=== PATIENT | female | born 1950 | race American Indian/Alaskan Native ===

== ENCOUNTER 2020-04-28 03:37 | Inpatient (IN) | payer MEDICARE ==
[2020-04-28] MEDS ORDERED: FUROSEMIDE 40 MG/4 ML INJ IV ONE (03:59)
[2020-04-28] MEDS ORDERED: PROMETHAZINE 25 MG TAB PO ONE (04:00)
[2020-04-28] MEDS ORDERED: NITROGLYCERIN 2% OINT 1 GM TP ONE (04:00)
--- NOTE | 2020-04-28 04:04 | Emergency Department Report ---
ED Shortness of Breath HPI - General Chief Complaint: Dyspnea/Respdistress Stated Complaint: ANSELMO Time Seen by Provider: 04/28/20 03:49 Source: EMS Mode of arrival: Stretcher Limitations: No Limitations - History of Present Illness Initial Comments: 70-year-old female the past medical history of CHF, defibrillator placement and breast cancer currently cancer free presents to the hospital with complaint shortness of breath for couple of days that acutely worsened this morning. EMS reports that patient was in respiratory distress satting in the low 80s on room air. She was treated with aspirin 324 mg, nitroglycerin sublingual x1, and CPAP in route with improvement of O2 sat to 92% with treatment. Patient apparently had a pink frothy sputum with intermittent coughing. She denies fevers loss of sense of taste or smell or having a recent cold weight test. She also denies chest pain, calf tenderness, leg edema, history of DVT/PE, or current an ticoagulant use. She is compliant with her medications including Lasix. 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 She typically goes to [facility] and does not have a chart and medical record for review Patient placed on BiPAP immediate upon arrival and looks comfortable satting 100% on initial BiPAP settings - Related Data Allergies Allergy/AdvReac Type Severity Reaction Status Date / Time ondansetron [From Zofran] Allergy Rash Verified 04/28/20 04:09 ED Review of Systems ROS: Stated complaint: ANSELMO Other details as noted in HPI Comment: All other systems reviewed and negative ED Physical Exam - General Limitations: No Limitations - Other Other exam information: Currently on BiPAP during examination General: No acute distress Head: Atraumatic Eyes: normal appearance ENT: Moist mucous membranes Neck: Normal appearance, no midline tenderness Chest: Bilateral crackles CV: Regular rate and rhythm Abdomen: Soft, normal bowel sounds, nontender, nondistended, no rebound or guarding Back: Normal inspection Extremity: Normal inspection, full range of motion, no calf tenderness or leg edema Neuro: Alert O x 3, no facial asymmetry, speech clear, no gross motor sensory deficit Psych: Appropriate behavior Skin: No rash ED Course Vital Signs 04/28/20 04/28/20 04/28/20 03:53 04:04 04:18 Temperature 97.6 F Pulse Rate 88 84 Respiratory 18 29 H 20 Rate Blood Pressure 159/96 Blood Pressure 170/107 [Left] O2 Sat by Pulse 99 98 98 Oximetry 04/28/20 04:47 Temperature Pulse Rate 87 Respiratory Rate Blood Pressure 159/96 Blood Pressure [Left] O2 Sat by Pulse Oximetry ED Medical Decision Making - Lab Data Result diagrams: 04/28/20 04:09 04/28/20 04:09 Lab Results 04/28/20 04/28/20 04/28/20 Range/Units 04:09 04:09 04:09 WBC 10.4 (4.5-11.0) K/mm3 RBC 4.59 (3.65-5.03) M/mm3 Hgb 13.1 (10.1-14.3) gm/dl Hct 39.4 (30.3-42.9) % MCV 86 (79-97) fl MCH 29 (28-32) pg MCHC 33 (30-34) % RDW 15.3 H (13.2-15.2) % Plt Count 198 (140-440) K/mm3 Lymph % (Auto) 13.2 L (13.4-35.0) % [place] % (Auto) 7.2 (0.0-7.3) % Eos % (Auto) 1.4 (0.0-4.3) % Baso % (Auto) 0.6 (0.0-1.8) % Lymph # (Auto) 1.4 (1.2-5.4) K/mm3 [place] # (Auto) 0.7 (0.0-0.8) K/mm3 Eos # (Auto) 0.1 (0.0-0.4) K/mm3 Baso # (Auto) 0.1 (0.0-0.1) K/mm3 Seg Neutrophils % 77.6 H (40.0-70.0) % Seg Neutrophils # 8.1 H (1.8-7.7) K/mm3 PT 13.7 (12.2-14.9) Sec. INR 1.03 (0.87-1.13) APTT 24.6 (24.2-36.6) Sec. Sodium 142 (137-145) mmol/L Potassium 3.5 L (3.6-5.0) mmol/L Chloride 101.3 (98-107) mmol/L Carbon Dioxide 25 (22-30) mmol/L Anion Gap 19 mmol/L BUN 19 H (7-17) mg/dL Creatinine 1.2 (0.6-1.2) mg/dL Estimated GFR 54 ml/min BUN/Creatinine Ratio 16 % Glucose 146 H (65-100) mg/dL Calcium 9.1 (8.4-10.2) mg/dL Total Bilirubin 0.40 (0.1-1.2) mg/dL AST 32 (5-40) units/L ALT 43 (7-56) units/L Alkaline Phosphatase 125 (35-129) units/L Troponin T < 0.010 (0.00-0.029) ng/mL NT-Pro-B Natriuret Pep 2575 H (0-900) pg/mL Total Protein 6.9 (6.3-8.2) g/dL Albumin 4.0 (3.9-5) g/dL Albumin/Globulin Ratio 1.4 % - EKG Data -: EKG Interpreted by Me (No STEMI anteroseptal Q waves) EKG shows normal: sinus rhythm, intervals (QTC 537), ST-T waves Rate: normal - Radiology Data Radiology results: report reviewed CHEST 1 VIEW INDICATION: Dyspnea COMPARISON: 05/16/2012 FINDINGS: Support devices: Bipolar pacemaker on the right Heart: Normal Lungs/Pleura: There is increased parenchymal density in the right mid and lower lung, worrisome for developing pneumonia. Left lung is clear of acute disease. No significant pleural fluid. IMPRESSION: 1. Right lower lung disease, worrisome for developing pneumonia. Suggest follow- up. - Medical Decision Making 70-year-old female presents to the hospital with shortness of breath for several days acutely worsened this morning. Suspected to have CHF as per EMS and was treated with oxygen, CPAP support, nitroglycerin, and aspirin. BiPAP, Lasix, Nitropaste initiated upon patient's arrival. X-ray more suggestive of pneumonia. Patient then placed in respiratory isolation with COVID order set and blood cultures pending. Labs unremarkable with the exception of elevated BNP and mild hypokalemia prior to IV Lasix. P.o. potassium provided. Patient also provided p.o. Phenergan for nausea case discussed with hospitalistw Dr Bergman. Patient be admitted to IM for treatment. Dexamethasone IV provided for hypoxia Critical Care Time: Yes Critical care time in (mins) excluding proc time.: 35 Critical care attestation.: If time is entered above; I have spent that time in minutes in the direct care of this critically ill patient, excluding procedure time. ED Disposition Clinical Impression: Dyspnea, Pneumonia, Hypoxia, History of CHF (congestive heart failure), History of breast cancer Disposition: OP ADMIT IP TO THIS HOSP Is pt being admited?: Yes Condition: Stable Time of Disposition: 05:51 (Dr Bergman/hospitalist)
--- NOTE | 2020-04-28 04:31 | XRay Report ---
CHEST 1 VIEW INDICATION: Dyspnea COMPARISON: 05/16/2012 FINDINGS: Support devices: Bipolar pacemaker on the right Heart: Normal Lungs/Pleura: There is increased parenchymal density in the right mid and lower lung, worrisome for d eveloping pneumonia. Left lung is clear of acute disease. No significant pleural fluid. IMPRESSION: 1. Right lower lung disease, worrisome for developing pneumonia. Suggest follow-up. Signer Name: Javier Shetty MD Signed: 04/28/2020 4:26 AM Workstation Name: [id number]
[2020-04-28 04:46] LABS: Basophils # (Auto) 0.1 K/mm3 (0.0-0.1); Basophils % (Auto) 0.6 % (0.0-1.8); Eosinophils # (Auto) 0.1 K/mm3 (0.0-0.4); Eosinophils % (Auto) 1.4 % (0.0-4.3); Hematocrit 39.4 % (30.3-42.9); Hemoglobin 13.1 gm/dl (10.1-14.3); Lymphocytes # (Auto) 1.4 K/mm3 (1.2-5.4); Lymphocytes % (Auto) 13.2 % (13.4-35.0); Mean Corpuscular HGB Conc 33 % (30-34); Mean Corpuscular Volume 86 fl (79-97); Monocytes # (Auto) 0.7 K/mm3 (0.0-0.8); Monocytes % (Auto) 7.2 % (0.0-7.3); Platelet Count 198 K/mm3 (140-440); Red Blood Count 4.59 M/mm3 (3.65-5.03); Red Cell Distribution Width 15.3 % (13.2-15.2)
[2020-04-28 04:53] LABS: INR 1.03 (0.87-1.13)
[2020-04-28 04:54] LABS: Partial Thromboplastin Time 24.6 Sec. (24.2-36.6)
[2020-04-28 05:03] LABS: Alanine Aminotransferase 43 units/L (7-56); BUN/Creatinine Ratio 16; Blood Urea Nitrogen 19 mg/dL (7-17); Calcium 9.1 mg/dL (8.4-10.2); Hemolysis Index 7
[2020-04-28] MEDS ORDERED: POTASSIUM CHLORIDE ER 20 MEQ TAB PO ONE ×2 (05:48→12:15)
[2020-04-28] MEDS ORDERED: dexAMETHasone 4 MG/ML VIAL IV ONE (06:27)
[2020-04-28 06:37] LABS: C-Reactive Protein 0.2 mg/dL (0.00-1.30)
[2020-04-28] MEDS ORDERED: cefTRIAXone/NS 2 GM/100 ML 2 GM/100 ML BAG IV ONE (07:34)
[2020-04-28] MEDS: cefTRIAXone/NS 2 GM/100 ML 2 GM/100 ML BAG IV SCH (07:49)
[2020-04-28] MEDS ORDERED: AZITHROMYCIN 500 MG in SODIUM CHLORIDE 0.9% 250ML 250 ML IV SCH (08:00)
--- NOTE | 2020-04-28 10:54 | Consultation ---
History of Present Illness Consult date: 04/28/20 Consult reason: congestive heart failure History of present illness: This is a 70-year old woman with multiple medical problems. She has a cardiac history of nonischemic cardiomyopathy and has a [employer] cardiac defibrillator insitu. Her latest echocardiogram showed persistent dilated cardiomyopathy with an ejection fraction at 25-30%. Normal functioning device on her most recent device interrogation. She has a history of paroxysmal atrial fibrillation, no longer on oral anticoagulation therapy. Patient also is intolerant to statin therapy. Patient was brought in with shortness of breath, coughs and hypoxia. It's reported an O2 saturation in the 80s on presentation to the ED. Chest x-ray suggests developing right pneumonia. A cardiac consultation has been requested for CHF evaluation. Patient reports progressive shortness of breath and coughs for several weeks. Due to COVID patient reports only taking a half tablet of her prescribed medications and running out of others as she did not want to go to the pharmacy. She denies chest pain. Denies palpitations and there is no lower extremity edema. ECG is sinus rhythm with nonspecific Twave abnormalities. Medications and Allergies Allergies Allergy/AdvReac Type Severity Reaction Status Date / Time ondansetron [From Zofran] Allergy Rash Verified 04/28/20 04:09 Home Medications Medication Instructions Recorded Confirmed Last Taken Type Clonidine HCl [Catapres] 0.3 mg PO QHS 04/28/20 04/28/20 04/25/20 History Digoxin [Lanoxin] 0.125 mg PO DAILY 04/28/20 04/28/20 04/25/20 History Furosemide [Lasix TAB] 40 mg PO QDAY 04/28/20 04/28/20 04/25/20 History carvediloL [Coreg] 25 mg PO BID 04/28/20 04/28/20 04/25/20 History Active Meds: Active Medications Ceftriaxone Sodium (Rocephin/Ns 2 Gm/100 Ml) 2 gm in 100 mls @ 200 mls/hr IV Q24H SHARON; Protocol Last Admin: 04/28/20 07:49 Dose: 200 mls/hr Documented by: Azithromycin 500 mg/ Sodium (Chloride) 250 mls @ 250 mls/hr IV Q24HR SHARON; Protocol Last Admin: 04/28/20 08:41 Dose: 250 mls/hr Documented by: Physical Examination Vital Signs Temp Pulse Resp BP Pulse Ox 97.6 F 88 18 170/107 99 04/28/20 03:53 04/28/20 03:53 04/28/20 03:53 04/28/20 03:53 04/28/20 03:53 General appearance: no acute distress HEENT: Positive: PERRL Neck: Positive: trachea midline Cardiac: Positive: Reg Rate and Rhythm Extremities: Absent: edema Results 04/28/20 04:09 04/28/20 06:01 Cardiac Enzymes 04/28/20 04/28/20 Range/Units 04:09 06:01 AST 32 (5-40) units/L Lactate Dehydrogenase 441 H (91-180) units/L Coagulation 04/28/20 Range/Units 04:09 PT 13.7 (12.2-14.9) Sec. INR 1.03 (0.87-1.13) APTT 24.6 (24.2-36.6) Sec. CBC 04/28/20 Range/Units 04:09 WBC 10.4 (4.5-11.0) K/mm3 RBC 4.59 (3.65-5.03) M/mm3 Hgb 13.1 (10.1-14.3) gm/dl Hct 39.4 (30.3-42.9) % Plt Count 198 (140-440) K/mm3 Lymph # (Auto) 1.4 (1.2-5.4) K/mm3 [place] # (Auto) 0.7 (0.0-0.8) K/mm3 Eos # (Auto) 0.1 (0.0-0.4) K/mm3 Baso # (Auto) 0.1 (0.0-0.1) K/mm3 Comprehensive Metabolic Panel 04/28/20 04/28/20 Range/Units 04:09 06:01 Sodium 142 (137-145) mmol/L Potassium 3.5 L (3.6-5.0) mmol/L Chloride 101.3 (98-107) mmol/L Carbon Dioxide 25 (22-30) mmol/L BUN 19 H (7-17) mg/dL Creatinine 1.2 (0.6-1.2) mg/dL Glucose 146 H 116 H (65-100) mg/dL Calcium 9.1 (8.4-10.2) mg/dL AST 32 (5-40) units/L ALT 43 (7-56) units/L Alkaline Phosphatase 125 (35-129) units/L Total Protein 6.9 (6.3-8.2) g/dL Albumin 4.0 (3.9-5) g/dL Assessment and Plan Pneumonia Acute systolic heart failure Hx of Nonischemic CMP LVEF 25-30% by echo 02/2019 normal coronaries by [facility] in 2003 Hx of paroxysmal Afib no longer on oral anticoagulation Presence of AICD ([employer]) normal device function by interrogation 01/2020 Hx of Breast Cancer Recommendations: Sodium and fluid restrictions. Advised compliance with medications. Resume medical therapy for systolic heart failure and paroxysmal atrial fibrillation.
--- NOTE | 2020-04-28 11:56 | History and Physical Report ---
History of Present Illness Date of examination: 04/28/20 Date of admission: 04/28/20 09:55 Chief complaint: Shortness of breath History of present illness: 70-year-old female with past medical history significant for CHF, hypertension, presented to the emergency department with complaints of shortness of breath of one-week duration. Patient stated she has associated dry cough cough, orthopnea and PND of 1 week duration. Patient denied fever, chills, leg swelling. Patient states she has been compliant with her medications and no change in her diet. Patient has been followed with [facility] but she said she did not see them for over a year. In the emergency department patient was hypoxic in the 80s, she was placed on BiPAP, Lasix was given, antibiotics were started and patient admitted for further care. We will going to check COVID test. Patient has elevated BNP and will check CTA. REVIEW OF SYSTEMS: GENERAL: no weight change, no fatigue, no fever HEAD: no head ache EYES: no blurry vision, no acute visual loss EARS: no hearing loss, no discharge, no earache NOSE: no stuffiness, no sneezing, no discharge MOUTH, THROAT AND NECK: no bleeding gums, no sore throat, no swollen neck CARDIAC: As stated in the HPI RESPIRATORY: As stated in the HPI GI: no decreased appetite, no nausea, no vomiting, no dysphagia, no diarrhea, no constipation, no abdominal pain URINARY: No urgency, hematuria, dysuria or frequency. MUSCULOSKELETAL: no muscle weakness, no pain, no joint stiffness NEUROLOGIC: no loss of sensation/numbness, no tingling, no tremors, no weakness/paralysis HEMATOLOGIC: no anemia, no easy bruising SKIN: no rashes ENDOCRINE: no heat/cold intolerance, no polyuria, no polydipsia, no thyroid problems, no diabetes PSYCHIATRIC: no anxiety, no depression, no suicidal ideations Past History Past Medical History: heart failure, hypertension Past Surgical History: mastectomy, Other (Partial thyroidectomy) Social history: full code. denies: smoking, alcohol abuse, prescription drug abuse, IV drug use Family history: no significant family history Medications and Allergies Allergies Allergy/AdvReac Type Severity Reaction Status Date / Time ondansetron [From Zofran] Allergy Rash Verified 04/28/20 04:09 Home Medications Medication Instructions Recorded Confirmed Last Taken Type Clonidine HCl [Catapres] 0.3 mg PO QHS 04/28/20 04/28/20 04/25/20 History Digoxin [Lanoxin] 0.125 mg PO DAILY 04/28/20 04/28/20 04/25/20 History Furosemide [Lasix TAB] 40 mg PO QDAY 04/28/20 04/28/20 04/25/20 History carvediloL [Coreg] 25 mg PO BID 04/28/20 04/28/20 04/25/20 History Active Meds: Active Medications Aspirin (Aspirin) 325 mg PO QDAY SHARON Carvedilol (Coreg) 25 mg PO BID SHARON Clonidine HCl (Catapres) 0.3 mg PO QHS [facility] Stop: 04/28/20 12:01 Clonidine HCl (Catapres) 0.3 mg PO QHS SHARON Digoxin (Lanoxin) 0.125 mg PO DAILY@1700 SHARON Furosemide (Lasix) 40 mg PO QDAY [facility] Ceftriaxone Sodium (Rocephin/Ns 2 Gm/100 Ml) 2 gm in 100 mls @ 200 mls/hr IV Q24H SHARON; Protocol Last Admin: 04/28/20 07:49 Dose: 200 mls/hr Documented by: Azithromycin 500 mg/ Sodium (Chloride) 250 mls @ 250 mls/hr IV Q24HR SHARON; Protocol Last Admin: 04/28/20 08:41 Dose: 250 mls/hr Documented by: Lisinopril (Zestril) 2.5 mg PO QDAY SHARON Spironolactone (Aldactone) 25 mg PO QDAY [facility] Exam - Physical Exam Narrative exam: Not in cardiopulmonary distress. The patient appeared well nourished and normally developed. Vital signs as documented. Head exam is unremarkable. No scleral icterus . Neck is without jugular venous distension, thyromegaly, or carotid bruits. Lungs are clear to auscultation. Cardiac exam reveals regular rate and Rhythm. Abdominal exam reveals normal bowel sounds, nontender, no organomegaly. Extremities are nonedematous and both femoral and pedal pulses are normal. 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 No focal weakness. - Constitutional Vitals: Temp Pulse Resp BP Pulse Ox 97.6 F 96 H 26 H 157/99 99 04/28/20 03:53 04/28/20 09:35 04/28/20 09:35 04/28/20 09:06 04/28/20 09:35 HEART Score - HEART Score Troponin: Troponin T < 0.010 ng/mL (0.00-0.029) 04/28/20 04:09 Results - Labs CBC & Chem 7: 04/28/20 04:09 04/28/20 06:01 Labs: Laboratory Last Values WBC 10.4 K/mm3 (4.5-11.0) 04/28/20 04:09 RBC 4.59 M/mm3 (3.65-5.03) 04/28/20 04:09 Hgb 13.1 gm/dl (10.1-14.3) 04/28/20 04:09 Hct 39.4 % (30.3-42.9) 04/28/20 04:09 MCV 86 fl (79-97) 04/28/20 04:09 MCH 29 pg (28-32) 04/28/20 04:09 MCHC 33 % (30-34) 04/28/20 04:09 RDW 15.3 % (13.2-15.2) H 04/28/20 04:09 Plt Count 198 K/mm3 (140-440) 04/28/20 04:09 Lymph % (Auto) 13.2 % (13.4-35.0) L 04/28/20 04:09 [place] % (Auto) 7.2 % (0.0-7.3) 04/28/20 04:09 Eos % (Auto) 1.4 % (0.0-4.3) 04/28/20 04:09 Baso % (Auto) 0.6 % (0.0-1.8) 04/28/20 04:09 Lymph # (Auto) 1.4 K/mm3 (1.2-5.4) 04/28/20 04:09 [place] # (Auto) 0.7 K/mm3 (0.0-0.8) 04/28/20 04:09 Eos # (Auto) 0.1 K/mm3 (0.0-0.4) 04/28/20 04:09 Baso # (Auto) 0.1 K/mm3 (0.0-0.1) 04/28/20 04:09 Seg Neutrophils % 77.6 % (40.0-70.0) H 04/28/20 04:09 Seg Neutrophils # 8.1 K/mm3 (1.8-7.7) H 04/28/20 04:09 PT 13.7 Sec. (12.2-14.9) 04/28/20 04:09 INR 1.03 (0.87-1.13) 04/28/20 04:09 APTT 24.6 Sec. (24.2-36.6) 04/28/20 04:09 D-Dimer 1103.01 ng/mlDDU (0-234) H 04/28/20 06:01 Sodium 142 mmol/L (137-145) 04/28/20 04:09 Potassium 3.5 mmol/L (3.6-5.0) L 04/28/20 04:09 Chloride 101.3 mmol/L (98-107) 04/28/20 04:09 Carbon Dioxide 25 mmol/L (22-30) 04/28/20 04:09 Anion Gap 19 mmol/L 04/28/20 04:09 BUN 19 mg/dL (7-17) H 04/28/20 04:09 Creatinine 1.2 mg/dL (0.6-1.2) 04/28/20 04:09 Estimated GFR 54 ml/min 04/28/20 04:09 BUN/Creatinine Ratio 16 % 04/28/20 04:09 Glucose 116 mg/dL (65-100) H 04/28/20 06:01 Calcium 9.1 mg/dL (8.4-10.2) 04/28/20 04:09 Ferritin 117.3 ng/mL (10.0-200.0) 04/28/20 06:01 Total Bilirubin 0.40 mg/dL (0.1-1.2) 04/28/20 04:09 AST 32 units/L (5-40) 04/28/20 04:09 ALT 43 units/L (7-56) 04/28/20 04:09 Alkaline Phosphatase 125 units/L (35-129) 04/28/20 04:09 Lactate Dehydrogenase 441 units/L (91-180) H 04/28/20 06:01 Troponin T < 0.010 ng/mL (0.00-0.029) 04/28/20 04:09 C-Reactive Protein 0.20 mg/dL (0.00-1.30) 04/28/20 06:01 NT-Pro-B Natriuret Pep 2575 pg/mL (0-900) H 04/28/20 04:09 Total Protein 6.9 g/dL (6.3-8.2) 04/28/20 04:09 Albumin 4.0 g/dL (3.9-5) 04/28/20 04:09 Albumin/Globulin Ratio 1.4 % 04/28/20 04:09 Procalcitonin < 0.05 ng/mL (<0.15) 04/28/20 06:01 Microbiology: Microbiology 04/28/20 05:50 Peripheral/Venous Blood Culture - Preliminary Culture in Progress 04/28/20 06:01 Peripheral/Venous Blood Culture - Preliminary Culture in Progress Cruz/IV: Voiding Method Bedside Commode IV Catheter Type [Right Peripheral IV Antecubital] Assessment and Plan Assessment and plan: Acute hypoxic respiratory failure -Patient was on BiPAP in the emergency department -Currently saturating well on intranasal oxygen -We will continue to monitor Acute on chronic systolic CHF exacerbation -Cardiology was consulted -Recommended to resume her home medication Community-acquired pneumonia -Patient is on IV Rocephin and azithromycin Elevated d-dimer -COVID-19 test -CTA of the chest DVT prophylaxis -On heparin Disposition -Admit to telemetry floor CODE STATUS -Full Management plan was discussed with the patient is in agreement with the plan of care. VTE prophylaxis?: Chemical Plan of care discussed with patient/family: Yes
[2020-04-28] MEDS ORDERED: ACETAMINOPHEN 325 MG TAB PO PRN (12:00)
[2020-04-28] MEDS ORDERED: ONDANSETRON 4 MG/2 ML INJ IV PRN (12:00)
[2020-04-28] MEDS ORDERED: cloNIDine 0.1 MG TAB PO SCH ×2 (12:00)
[2020-04-28] MEDS: ASPIRIN 325 MG TAB PO SCH (12:09)
[2020-04-28] MEDS: SPIRONOLACTONE 25 MG TAB PO SCH (12:09)
[2020-04-28] MEDS: carvediloL 25 MG TAB PO SCH ×2 (12:10→21:20)
[2020-04-28] MEDS: HEPARIN 5,000 UNIT/1 ML VIAL SUB-Q SCH ×2 (13:15→21:23)
--- NOTE | 2020-04-28 16:55 | Cat Scan Report ---
CT angio chest INDICATION / CLINICAL INFORMATION: hypoxia, elevated d-dimer. TECHNIQUE: Axial CT images were obtained after injection of 100 cc of Omnipaque 350 IV contrast using CTA protoc ol. 3 plane MIP / 3D reconstructions were produced. All CT scans at this location are performed using CT dose reduction for ALARA by means of automated exposure control. COMPARISON: None available. FINDINGS: Following the administration of intravenous contrast, no filling defects are seen in the main pulmona ry arteries or their branches. Small bilateral pleural effusions are present. Diffuse mild airspace d isease is seen in the right lung. Mild nodular disease is seen in both lower lobes. A small pericardi al effusion is present. No enlarged mediastinal or hilar lymph nodes are identified. No significant s keletal abnormality is seen other than degenerative change in the spine. IMPRESSION: 1. No evidence of pulmonary embolus 2. Small bilateral pleural effusions with mild diffuse airspace disease on the right 3. Small pericardial effusion 4. Mild nodular disease in both lower lobes Signer Name: Diogenes Tripathi MD FACR Signed: 04/28/2020 4:50 PM Workstation Name: [id number]
[2020-04-28] MEDS ORDERED: DIGOXIN 0.125 MG TAB PO SCH (17:00)
[2020-04-28] MEDS ORDERED: FUROSEMIDE 40 MG/4 ML INJ IV SCH (18:00)
[2020-04-29] MEDS: HEPARIN 5,000 UNIT/1 ML VIAL SUB-Q SCH (06:16)
[2020-04-29] MEDS: cefTRIAXone/NS 2 GM/100 ML 2 GM/100 ML BAG IV SCH (06:17)
--- NOTE | 2020-04-29 09:15 | Progress Note ---
Assessment and Plan Assessment and plan: Acute hypoxic respiratory failure -Patient was on BiPAP in the emergency department -Currently saturating well on intranasal oxygen -We will continue to monitor Acute on chronic systolic CHF exacerbation -Cardiology was consulted -Recommended to resume her home medication Community-acquired pneumonia -Patient is on IV Rocephin and azithromycin Elevated d-dimer -COVID-19 test -CTA of the chest DVT prophylaxis -On heparin Disposition -Continue inpatient care CODE STATUS -Full Management plan was discussed with the patient is in agreement with the plan of care. History Interval history: Patient was seen and evaluated this morning, patient shortness of breath is getting better Hospitalist Physical - Physical exam Narrative exam: Not in cardiopulmonary distress. The patient appeared well nourished and normally developed. Vital signs as documented. Head exam is unremarkable. No scleral icterus . Neck is without jugular venous distension, thyromegaly, or carotid bruits. Lungs are clear to auscultation. Cardiac exam reveals regular rate and Rhythm. Abdominal exam reveals normal bowel sounds, nontender, no organomegaly. Extremities are nonedematous and both femoral and pedal pulses are normal. 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 No focal weakness. - Constitutional Vitals: Temp Pulse Resp BP Pulse Ox 97.8 F 73 15 170/83 91 04/29/20 08:00 04/29/20 08:00 04/29/20 08:00 04/29/20 08:00 04/29/20 08:00 General appearance: Present: no acute distress HEART Score - HEART Score Troponin: Troponin T < 0.010 ng/mL (0.00-0.029) 04/28/20 04:09 Results - Labs CBC & Chem 7: 04/28/20 04:09 04/28/20 06:01 Labs: Laboratory Last Values WBC 10.4 K/mm3 (4.5-11.0) 04/28/20 04:09 RBC 4.59 M/mm3 (3.65-5.03) 04/28/20 04:09 Hgb 13.1 gm/dl (10.1-14.3) 04/28/20 04:09 Hct 39.4 % (30.3-42.9) 04/28/20 04:09 MCV 86 fl (79-97) 04/28/20 04:09 MCH 29 pg (28-32) 04/28/20 04:09 MCHC 33 % (30-34) 04/28/20 04:09 RDW 15.3 % (13.2-15.2) H 04/28/20 04:09 Plt Count 198 K/mm3 (140-440) 04/28/20 04:09 Lymph % (Auto) 13.2 % (13.4-35.0) L 04/28/20 04:09 Banner % (Auto) 7.2 % (0.0-7.3) 04/28/20 04:09 Eos % (Auto) 1.4 % (0.0-4.3) 04/28/20 04:09 Baso % (Auto) 0.6 % (0.0-1.8) 04/28/20 04:09 Lymph # (Auto) 1.4 K/mm3 (1.2-5.4) 04/28/20 04:09 Banner # (Auto) 0.7 K/mm3 (0.0-0.8) 04/28/20 04:09 Eos # (Auto) 0.1 K/mm3 (0.0-0.4) 04/28/20 04:09 Baso # (Auto) 0.1 K/mm3 (0.0-0.1) 04/28/20 04:09 Seg Neutrophils % 77.6 % (40.0-70.0) H 04/28/20 04:09 Seg Neutrophils # 8.1 K/mm3 (1.8-7.7) H 04/28/20 04:09 PT 13.7 Sec. (12.2-14.9) 04/28/20 04:09 INR 1.03 (0.87-1.13) 04/28/20 04:09 APTT 24.6 Sec. (24.2-36.6) 04/28/20 04:09 D-Dimer 1103.01 ng/mlDDU (0-234) H 04/28/20 06:01 Sodium 142 mmol/L (137-145) 04/28/20 04:09 Potassium 3.5 mmol/L (3.6-5.0) L 04/28/20 04:09 Chloride 101.3 mmol/L (98-107) 04/28/20 04:09 Carbon Dioxide 25 mmol/L (22-30) 04/28/20 04:09 Anion Gap 19 mmol/L 04/28/20 04:09 BUN 19 mg/dL (7-17) H 04/28/20 04:09 Creatinine 1.2 mg/dL (0.6-1.2) 04/28/20 04:09 Estimated GFR 54 ml/min 04/28/20 04:09 BUN/Creatinine Ratio 16 % 04/28/20 04:09 Glucose 116 mg/dL (65-100) H 04/28/20 06:01 Calcium 9.1 mg/dL (8.4-10.2) 04/28/20 04:09 Ferritin 117.3 ng/mL (10.0-200.0) 04/28/20 06:01 Total Bilirubin 0.40 mg/dL (0.1-1.2) 04/28/20 04:09 AST 32 units/L (5-40) 04/28/20 04:09 ALT 43 units/L (7-56) 04/28/20 04:09 Alkaline Phosphatase 125 units/L (35-129) 04/28/20 04:09 Lactate Dehydrogenase 441 units/L (91-180) H 04/28/20 06:01 Troponin T < 0.010 ng/mL (0.00-0.029) 04/28/20 04:09 C-Reactive Protein 0.20 mg/dL (0.00-1.30) 04/28/20 06:01 NT-Pro-B Natriuret Pep 2575 pg/mL (0-900) H 04/28/20 04:09 Total Protein 6.9 g/dL (6.3-8.2) 04/28/20 04:09 Albumin 4.0 g/dL (3.9-5) 04/28/20 04:09 Albumin/Globulin Ratio 1.4 % 04/28/20 04:09 Procalcitonin < 0.05 ng/mL (<0.15) 04/28/20 06:01 Digoxin 0.7 ng/mL (0.9-2.0) L 04/28/20 14:05 Coronavirus (PCR) Negative (Negative) 04/28/20 06:42 Microbiology: Microbiology 04/28/20 05:50 Peripheral/Venous Blood Culture - Preliminary NO GROWTH AFTER 24 HOURS 04/28/20 06:01 Peripheral/Venous Blood Culture - Preliminary NO GROWTH AFTER 24 HOURS Cruz/IV: Voiding Method Bedside Commode IV Catheter Type [Right Peripheral IV Antecubital] Active Medications - Current Medications Current Medications: Generic Name Dose Route Start Last Admin Trade Name Freq PRN Reason Stop Dose Admin Acetaminophen 650 mg 04/28/20 12:00 Tylenol PO Q4H PRN Pain MILD(1-3)/Fever >100.5/NAVAS Aspirin 325 mg 04/28/20 12:00 04/28/20 12:09 Aspirin PO 325 mg QDAY SHARON Administration Azithromycin 500 mg 04/29/20 10:00 Zithromax PO 05/02/20 12:00 QDAY SHARON Carvedilol 25 mg 04/28/20 12:00 04/28/20 21:20 Coreg PO 25 mg BID SHARON Administration Clonidine HCl 0.3 mg 04/29/20 22:00 Catapres PO QHS SHARON Digoxin 0.125 mg 04/28/20 17:00 04/28/20 17:16 Lanoxin PO 0.125 mg DAILY@1700 SHARON Administration Furosemide 40 mg 04/29/20 10:00 Lasix PO QDAY SHARON Heparin Sodium (Porcine) 5,000 unit 04/28/20 14:00 04/29/20 06:16 Heparin SUB-Q 5,000 unit Q8HR SHARON Administration Ceftriaxone Sodium 2 gm in 100 mls @ 200 mls/hr 04/28/20 07:00 04/29/20 06:17 Rocephin/Ns 2 Gm/100 Ml IV 05/02/20 07:29 200 mls/hr Q24H SHARON Administration Protocol Lisinopril 2.5 mg 04/29/20 10:00 Zestril PO QDAY SHARON Ondansetron HCl 4 mg 04/28/20 12:00 Zofran IV Q8H PRN Nausea And Vomiting Sodium Chloride 10 ml 04/28/20 22:00 04/28/20 21:25 Sodium Chloride Flush Syringe 10 Ml IV 10 ml BID SHARON Administration Sodium Chloride 10 ml 04/28/20 12:00 Sodium Chloride Flush Syringe 10 Ml IV PRN PRN LINE FLUSH Spironolactone 25 mg 04/28/20 12:00 04/28/20 12:09 Aldactone PO 25 mg QDAY SHARON Administration Nutrition/Malnutrition Assess - Dietary Evaluation Nutrition/Malnutrition Findings: Nutrition Notes Start: 04/28/20 10:19 Freq: Status: Active Protocol: Document 04/28/20 10:19 KIRSTIN (Rec: 04/28/20 10:24 KIRSTIN [email or web address]) Nutrition Notes Need for Assessment 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 Chest Xray revealed possible developing pneu. Cardiology consulted. Burn Absent Trauma Absent Minimum of two criteria No #1 Nutrition Diagnosis Inadequate oral intake Etiology ANSELMO As Evidenced by Signs and Symptoms pt NPO Is patient on ventilator? No Is Patient Ambulatory and/or Out of Bed No [facility] 1507.272 Calculation Used for Recommendations [facility] Additional Notes Pro needs 1-1.2g/k-84g/ day Fluid needs 1500-1900ml/day or per MD Nutrition Intervention Change Diet Order: Advance diet when medically feasible Goal #1 Diet advancement to meet nutrient needs Anticipated Discharge Needs: Low sodium diet Follow-Up By: 04/30/20 Additional Comments F/U: diet advancement
[2020-04-29] MEDS ORDERED: FUROSEMIDE 40 MG TAB PO SCH (10:00)
[2020-04-29] MEDS ORDERED: LISINOPRIL 5 MG TAB PO SCH (10:00)
[2020-04-29] MEDS ORDERED: AZITHROMYCIN 250 MG TAB PO SCH (10:00)
[2020-04-29] MEDS: ASPIRIN 325 MG TAB PO SCH (10:03)
[2020-04-29] MEDS: carvediloL 25 MG TAB PO SCH (10:03)
[2020-04-29] MEDS: SPIRONOLACTONE 25 MG TAB PO SCH (10:04)
--- NOTE | 2020-04-29 11:42 | Discharge Summary ---
Providers - Providers Date of Admission: 04/28/20 09:55 Date of discharge: 04/29/20 Attending physician: ABDULAZIZ HEWITT MD 04/28/20 09:13 Consult to Physician [CONS] Routine Comment: Consulting Provider: SIL DELANEY Physician Instructions: Reason For Exam: CHF, hypoxia Primary care physician: ALLEGRA PEOPLES Hospitalization Reason for admission: Acute hypoxic respiratory failure, hypoxia, acute on chronic systolic CHF Condition: Stable Pertinent studies: CTA chest negative for PE Hospital course: 70-year-old female with past medical history significant for CHF, hypertension, presented to the emergency department with complaints of shortness of breath of one-week duration. Patient stated she has associated dry cough cough, orthopnea and PND of 1 week duration. Patient denied fever, chills, leg swelling. Patient states she has been compliant with her medications and no change in her diet. Patient has been followed with [facility] but she said she did not see them for over a year. In the emergency department patient was hypoxic in the 80s, she was placed on BiPAP, Lasix was given, antibiotics were started and patient admitted for further care. COVID test is negative. Patient has elevated BNP and will. CTA chest was done and negative. Patient was admitted to the floor for the management of acute hypoxic respiratory failure and initially patient was treated with BiPAP and later transitioned to intranasal oxygen. This morning her oxygen saturation was 95% after ambulation without oxygen. Cardiology was consulted for her CHF and recommended to continue her home medication regimens and no further work-up is needed and advised to have follow-up in the office because the patient is noncompliant. Patient has pneumonia and was treated with IV antibiotics while she was inpatient and discharged with p.o. antibiotics to finish as outpatient. Patient was hemodynamically stable at the time of discharge and appropriate medication scripts were given at the time of discharge. Patient's questions and concerns were addressed at the bedside. Disposition: - TO HOME OR SELFCARE Time spent for discharge: 32 minutes - Discharge Diagnoses (1) Dyspnea Status: Acute (2) History of CHF (congestive heart failure) Status: Acute (3) History of breast cancer Status: Acute (4) Hypoxia Status: Acute (5) Pneumonia Status: Acute Core Measure Documentation - Palliative Care Palliative Care/ Comfort Measures: Not Applicable - Core Measures Any of the following diagnoses?: heart failure, none - Heart Failure Discharge Requirements EMMA/ARB for LVSD if EF <40%: Yes Beta itzel at discharge: Yes Exam - Physical Exam Narrative exam: Not in cardiopulmonary distress. The patient appeared well nourished and normally developed. Vital signs as documented. Head exam is unremarkable. No scleral icterus . Neck is without jugular venous distension, thyromegaly, or carotid bruits. Lungs are clear to auscultation. Cardiac exam reveals regular rate and Rhythm. Abdominal exam reveals normal bowel sounds, nontender, no organomegaly. Extremities are nonedematous and both femoral and pedal pulses are normal. 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 No focal weakness. - Constitutional Vitals: Temp Pulse Resp BP Pulse Ox 97.8 F 73 16 173/78 100 04/29/20 08:00 04/29/20 10:31 04/29/20 10:31 04/29/20 10:31 04/29/20 10:31 Plan Activity: no restrictions Weight Bearing Status: Full Weight Bearing Diet: low fat Follow up with: ALLEGRA PEOPLES MD [Primary Care Provider] - 3-5 Days SIL DELANEY MD [Staff Physician] - 14 Days Prescriptions: Clonidine HCl [Catapres] 0.3 mg PO QHS #30 Spironolactone [Aldactone] 25 mg PO QDAY #30 tablet carvediloL [Coreg] 25 mg PO BID #60 cephALEXin [Keflex] 500 mg PO Q8HR #15 cap Digoxin [Lanoxin] 0.125 mg PO DAILY #30 Furosemide [Lasix TAB] 40 mg PO QDAY #30 lisinopriL [Zestril TAB] 2.5 mg PO QDAY #30 tablet Azithromycin [Zithromax TAB] 250 mg PO QDAY #3 tablet
--- NOTE | 2020-04-29 12:10 | Progress Note ---
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 Presence of AICD ([employer]) normal device function by interrogation 01/2020 Hx of Breast Cancer Recommendations: Sodium and fluid restrictions. Continue medical therapy for systolic heart failure and paroxysmal atrial fibrillation. Advised compliance with medical therapy and outpatient follow up. Otherwise, conservative cardiac management. Subjective Date of service: 04/29/20 Interval history: Patient is resting in bed comfortably. Reports she is feeling better. Wants to go home. Objective Vital Signs Temp Pulse Pulse Resp BP Pulse Ox 04/29/20 10:31 73 16 173/78 100 04/29/20 10:21 72 20 173/78 100 04/29/20 10:11 69 18 173/78 99 04/29/20 10:04 173/78 04/29/20 10:03 70 173/78 04/29/20 10:00 70 13 173/78 100 04/29/20 09:51 73 15 165/72 100 04/29/20 09:41 66 15 165/72 99 04/29/20 09:31 71 16 165/72 100 04/29/20 09:21 71 13 165/72 100 04/29/20 09:11 72 15 165/72 100 04/29/20 09:00 68 16 165/72 100 04/29/20 08:51 71 18 170/83 100 04/29/20 08:41 75 13 170/83 100 04/29/20 08:31 70 15 170/83 100 04/29/20 08:21 70 21 170/83 99 04/29/20 08:11 67 19 170/83 100 04/29/20 08:00 97.8 F 73 15 170/83 91 04/29/20 07:51 69 13 159/72 100 04/29/20 07:41 65 16 159/72 100 04/29/20 07:31 64 15 159/72 100 04/29/20 07:21 68 12 159/72 100 04/29/20 07:11 65 15 159/72 100 04/29/20 07:00 63 16 159/72 100 04/29/20 06:51 63 17 153/70 100 04/29/20 06:41 69 21 153/70 100 04/29/20 06:31 64 16 153/70 100 04/29/20 06:21 66 18 153/70 100 04/29/20 06:11 66 11 L 153/70 100 04/29/20 06:00 62 12 153/70 100 04/29/20 05:51 63 17 147/66 100 04/29/20 05:41 73 15 147/66 100 04/29/20 05:31 66 14 147/66 100 04/29/20 05:21 63 15 147/66 100 04/29/20 05:11 63 15 147/66 100 04/29/20 05:01 63 20 147/66 100 04/29/20 04:51 62 15 128/63 99 04/29/20 04:41 64 18 128/63 99 04/29/20 04:31 64 16 128/63 100 04/29/20 04:21 75 13 128/63 99 04/29/20 04:11 64 12 128/63 100 04/29/20 04:00 98.3 F 65 75 17 128/63 99 04/29/20 03:51 58 L 14 132/57 100 04/29/20 03:41 63 14 132/57 100 04/29/20 03:31 58 L 14 132/57 100 04/29/20 03:21 62 16 132/57 100 04/29/20 03:11 60 14 132/57 99 04/29/20 03:00 60 14 132/57 100 04/29/20 02:51 59 L 14 128/61 99 04/29/20 02:41 60 14 128/61 100 04/29/20 02:31 62 14 128/61 100 04/29/20 02:21 64 14 128/61 100 04/29/20 02:11 61 14 128/61 100 04/29/20 02:00 58 L 20 128/61 100 04/29/20 01:51 58 L 13 131/66 100 04/29/20 01:41 60 14 131/66 100 04/29/20 01:31 61 13 131/66 100 04/29/20 01:21 61 14 131/66 100 04/29/20 01:11 64 14 131/66 100 04/29/20 01:00 64 13 131/66 100 04/29/20 00:51 63 13 127/57 99 04/29/20 00:41 61 14 127/57 99 04/29/20 00:31 62 14 127/57 99 04/29/20 00:21 69 14 127/57 100 04/29/20 00:11 68 18 127/57 99 04/29/20 00:00 97.6 F 75 75 13 127/57 99 04/28/20 23:51 119/54 98 04/28/20 23:41 119/54 100 04/28/20 23:31 119/54 99 04/28/20 23:21 66 15 119/54 100 04/28/20 23:11 67 13 119/54 99 04/28/20 23:00 70 14 119/54 99 04/28/20 22:51 67 14 137/67 100 04/28/20 22:41 70 14 137/67 99 04/28/20 22:31 67 14 137/67 100 04/28/20 22:21 137/67 100 04/28/20 22:11 137/67 99 04/28/20 22:00 137/67 99 04/28/20 21:51 139/73 100 04/28/20 21:41 81 24 139/73 99 04/28/20 21:31 72 16 139/73 99 04/28/20 21:21 79 22 120/57 99 04/28/20 21:20 71 139/73 04/28/20 21:11 69 18 120/57 99 04/28/20 21:01 72 22 120/57 99 04/28/20 20:51 70 20 134/67 98 04/28/20 20:41 73 16 134/67 99 04/28/20 20:31 73 22 134/67 98 04/28/20 20:21 72 19 134/67 98 04/28/20 20:17 70 04/28/20 20:11 68 15 134/67 98 04/28/20 20:07 68 15 134/67 98 04/28/20 20:00 97.9 F 70 70 18 130/62 98 04/28/20 19:51 69 17 130/62 99 04/28/20 19:41 71 23 130/62 100 04/28/20 19:31 89 21 130/62 99 04/28/20 19:21 77 21 130/62 100 04/28/20 19:11 73 13 130/62 99 04/28/20 19:00 66 16 130/62 100 04/28/20 18:51 69 18 130/65 99 04/28/20 18:41 74 13 130/65 99 04/28/20 18:31 74 18 130/65 99 04/28/20 18:21 72 17 130/65 98 04/28/20 18:11 72 17 130/65 98 04/28/20 18:00 71 23 130/65 99 04/28/20 17:51 75 21 114/69 98 04/28/20 17:41 90 24 114/69 99 04/28/20 17:31 84 18 114/69 99 04/28/20 17:21 89 23 114/69 98 04/28/20 17:16 89 129/62 04/28/20 17:11 80 20 114/69 98 04/28/20 17:00 78 18 129/62 99 04/28/20 16:50 78 14 100 04/28/20 16:42 81 21 107/68 100 04/28/20 16:00 98.1 F 78 79 17 107/68 99 04/28/20 15:50 75 20 108/60 100 04/28/20 15:40 73 16 108/60 99 04/28/20 15:30 75 17 108/60 100 04/28/20 15:20 77 16 108/60 99 04/28/20 15:10 76 16 108/60 99 04/28/20 15:00 76 17 108/60 99 04/28/20 14:50 78 16 105/60 98 04/28/20 14:40 80 14 105/60 99 04/28/20 14:30 81 16 105/60 98 04/28/20 14:20 81 15 105/60 98 04/28/20 14:10 82 17 105/60 99 04/28/20 14:00 85 19 105/60 98 04/28/20 13:50 82 16 119/64 98 04/28/20 13:40 83 16 119/64 97 04/28/20 13:30 82 17 119/64 98 04/28/20 13:20 85 22 119/64 97 04/28/20 13:10 93 H 15 119/64 98 04/28/20 13:00 89 21 119/64 98 04/28/20 12:50 90 17 167/76 98 04/28/20 12:40 96 H 20 167/76 98 04/28/20 12:30 99 H 24 167/76 99 04/28/20 12:20 101 H 23 167/76 99 04/28/20 12:10 99 H 21 167/76 98 04/28/20 12:09 99 H 167/76 - Physical Examination General: No Apparent Distress HEENT: Positive: PERRL Neck: Positive: trachea midline Cardiac: Positive: Reg Rate and Rhythm Extremities: Absent: edema <ARCENIO HYMAN Last Filed: 04/30/20 21:02> Subjective Interval history: I SAW THIS PT & AGREE WITH THE Dx & Tx PLAN
[2020-04-29 12:35] VITALS: BP 146/65
[2020-04-29] MEDS ORDERED: cloNIDine 0.1 MG TAB PO SCH (22:00)
== END 2020-04-29 12:56 | disposition home or self-care (01) | DRG 871 ==
LOC: ED 03:37 → IMCU 05:56 → OBSVTOIN 09:55
PROVIDERS: ADMIT Internal Medicine Geriatric Medicine; ATTEND Internal Medicine
PROC: 5A09357 Assistance with Respiratory Ventilation, Less than 24 Consecutive Hours, Continuous Positive Airway Pressure (ICD-10-PCS; principal; 2020-04-28)
DX: A41.9 Sepsis, unspecified organism (principal); J96.01 Acute respiratory failure with hypoxia; J18.9 Pneumonia, unspecified organism; I50.23 Acute on chronic systolic (congestive) heart failure; I42.8 Other cardiomyopathies; I11.0 Hypertensive heart disease with heart failure; E87.6 Hypokalemia; Z20.828 Contact with and (suspected) exposure to other viral communicable diseases; Z95.810 Presence of automatic (implantable) cardiac defibrillator; Z79.899 Other long term (current) drug therapy; Z79.82 Long term (current) use of aspirin; Z85.3 Personal history of malignant neoplasm of breast; Z79.01 Long term (current) use of anticoagulants; Z88.8 Allergy status to other drugs, medicaments and biological substances; Z91.19 Patient's noncompliance with other medical treatment and regimen; Z79.891 Long term (current) use of opiate analgesic
CPT/HCPCS: 36415; 71045; 71275; 80053; 80162; 82728; 82947; 83615; 83880; 84145; 84484; 85025; 85379; 85610; 85730; 86140; 87040; 93005; 94760; 96365; 96375; G0378; J0456; J0696; J1100; J1644; J1940; J7050; Q0169; Q9967; U0003-CS

== ENCOUNTER 2020-05-10 21:40 | Observation (INO) | payer MEDICARE ==
--- NOTE | 2020-05-10 22:15 | Emergency Department Report ---
ED Neuro Deficit HPI - General Chief Complaint: Neuro Symptoms/Deficit Stated Complaint: POSS STROKE Time Seen by Provider: 05/10/20 22:00 Source: patient Mode of arrival: Ambulatory Limitations: No Limitations - History of Present Illness Initial Comments: Chief complaint "I had a bit of slurred speech and confusion." HPI: This is a 70-year-old female with history of breast cancer in remission, congestive heart failure and atrial fibrillation who was recently discharged from the hospital after treatment for pneumonia last week. She presents with sudden onset of slurred speech and confusion observed by her . Patient realized that she could not get her train of thought together for a moment. EMS was called to the home. Patient politely declined EMS transport. She was brought by private vehicle. Patient states speech has improved. Her thought process appears to have been slowed. She feels as if it takes some time to get her thoughts together. Patient is not on anticoagulation. Patient does take digoxin. No previous history of TIA or CVA. She takes daily aspirin. PCP Dr. Carranza Hop Weigher Dr. Meade -: Sudden, This evening Location: speech, altered History of same: No Place: home Severity: mild Improves With: time Context: sudden onset Associated Symptoms: confusion Treatments Prior to Arrival: none - Related Data Home Medications: Previous Rx's Medication Instructions Recorded Last Taken Type Azithromycin [Zithromax TAB] 250 mg PO QDAY #3 tablet 04/29/20 Unknown Rx Clonidine HCl [Catapres] 0.3 mg PO QHS #30 04/29/20 Unknown Rx Digoxin [Lanoxin] 0.125 mg PO DAILY #30 04/29/20 Unknown Rx Furosemide [Lasix TAB] 40 mg PO QDAY #30 04/29/20 Unknown Rx Spironolactone [Aldactone] 25 mg PO QDAY #30 tablet 04/29/20 Unknown Rx carvediloL [Coreg] 25 mg PO BID #60 04/29/20 Unknown Rx cephALEXin [Keflex] 500 mg PO Q8HR #15 cap 04/29/20 Unknown Rx lisinopriL [Zestril TAB] 2.5 mg PO QDAY #30 tablet 04/29/20 Unknown Rx Allergies/Adverse Reactions: Allergies Allergy/AdvReac Type Severity Reaction Status Date / Time ondansetron [From Zofran] Allergy Rash Verified 04/28/20 04:09 ED Review of Systems ROS: Stated complaint: POSS STROKE Other details as noted in HPI Comment: All other systems reviewed and negative Constitutional: denies: fever, malaise Respiratory: denies: cough, shortness of breath Cardiovascular: denies: chest pain Gastrointestinal: denies: abdominal pain, nausea, vomiting Neurological: confusion. denies: headache, weakness, numbness, paresthesias, abnormal gait, vertigo ED Past Medical Hx - Past Medical History Previous Medical History?: Yes Hx Hypertension: Yes Hx Congestive Heart Failure: Yes (Defibrilator) - Surgical History Past Surgical History?: Yes Hx Breast Surgery: Yes Additional Surgical History: Partial Thyroid removed, Rhinoplasty - Social History Smoking Status: Never Smoker Substance Use Type: None - Medications Home Medications: Home Medications Medication Instructions Recorded Confirmed Last Taken Type Azithromycin [Zithromax TAB] 250 mg PO QDAY #3 tablet 04/29/20 Unknown Rx Clonidine HCl [Catapres] 0.3 mg PO QHS #30 04/29/20 Unknown Rx Digoxin [Lanoxin] 0.125 mg PO DAILY #30 04/29/20 Unknown Rx Furosemide [Lasix TAB] 40 mg PO QDAY #30 04/29/20 Unknown Rx Spironolactone [Aldactone] 25 mg PO QDAY #30 tablet 04/29/20 Unknown Rx carvediloL [Coreg] 25 mg PO BID #60 04/29/20 Unknown Rx cephALEXin [Keflex] 500 mg PO Q8HR #15 cap 04/29/20 Unknown Rx lisinopriL [Zestril TAB] 2.5 mg PO QDAY #30 tablet 04/29/20 Unknown Rx ED Neuro Physical Exam - General Limitations: No Limitations General appearance: alert, in no apparent distress Suspected Stroke: Yes - Head Head exam: Present: atraumatic, normocephalic - Eye Eye exam: Present: normal appearance - ENT ENT exam: Present: mucous membranes moist - Neck Neck exam: Present: normal inspection, full ROM - Respiratory Respiratory exam: Present: normal lung sounds bilaterally. Absent: respiratory distress, wheezes, rales, rhonchi - Cardiovascular Cardiovascular Exam: Present: normal rhythm, tachycardia, irregular rhythm, normal heart sounds. Absent: systolic murmur, diastolic murmur, rubs, gallop - GI/Abdominal GI/Abdominal exam: Present: soft, normal bowel sounds. Absent: distended, tenderness, guarding, rebound - Extremities Exam Extremities exam: Present: normal inspection - Neurological Exam Neurological exam: Present: alert, oriented X3 - NIHSS Assessment Interval: Baseline 1a. Level of Consciousness: alert/keenly responsive 1b. LOC Questions: answers both correctly 1c. LOC Commands: performs tasks correctly 2. Best Gaze: normal 3. Visual: no visual loss 4. Facial Palsy: normal symmetrical movement 5b. Motor Arm Right: no drift 5a. Motor Arm Left: no drift 6a. Motor Leg Left: no drift 6b. Motor Leg Right: no drift 7. Limb Ataxia: absent 8. Sensory: normal 9. Best Language: no aphasia 10. Dysarthria: normal 11. Extinction/Inattention: no abnormality Total Score: 0 Stroke Severity: No Stroke Symptoms - Psychiatric Psychiatric exam: Present: normal affect, normal mood - Skin Skin exam: Present: warm, dry, intact, normal color. Absent: rash ED Course Vital Signs 05/10/20 05/10/20 21:46 22:19 Temperature 98.0 F Pulse Rate 51 L Respiratory 15 18 Rate Blood Pressure 101/72 O2 Sat by Pulse 96 Oximetry - Lab Data Result diagrams: 05/10/20 22:31 05/10/20 22:31 Lab Results 05/10/20 05/10/20 05/10/20 Range/Units 22:31 22:31 22:31 WBC 13.8 H (4.5-11.0) K/mm3 RBC 5.04 H (3.65-5.03) M/mm3 Hgb 14.2 (10.1-14.3) gm/dl Hct 42.9 (30.3-42.9) % MCV 85 (79-97) fl MCH 28 (28-32) pg MCHC 33 (30-34) % RDW 15.9 H (13.2-15.2) % Plt Count 226 (140-440) K/mm3 Lymph % (Auto) 15.5 (13.4-35.0) % [place] % (Auto) 9.7 H (0.0-7.3) % Eos % (Auto) 0.2 (0.0-4.3) % Baso % (Auto) 0.7 (0.0-1.8) % Lymph # (Auto) 2.1 (1.2-5.4) K/mm3 [place] # (Auto) 1.3 H (0.0-0.8) K/mm3 Eos # (Auto) 0.0 (0.0-0.4) K/mm3 Baso # (Auto) 0.1 (0.0-0.1) K/mm3 Seg Neutrophils % 73.9 H (40.0-70.0) % Seg Neutrophils # 10.2 H (1.8-7.7) K/mm3 Sodium 140 (137-145) mmol/L Potassium 4.1 (3.6-5.0) mmol/L Chloride 100.0 (98-107) mmol/L Carbon Dioxide 26 (22-30) mmol/L Anion Gap 18 mmol/L BUN 15 (7-17) mg/dL Creatinine 1.3 H (0.6-1.2) mg/dL Estimated GFR 49 ml/min BUN/Creatinine Ratio 12 % Glucose 125 H (65-100) mg/dL POC Glucose (70-105) Calcium 9.7 (8.4-10.2) mg/dL Troponin T < 0.010 (0.00-0.029) ng/mL Digoxin (0.9-2.0) ng/mL Plasma/Serum Alcohol < 0.01 (0-0.07) % 05/10/20 05/10/20 Range/Units 22:31 23:07 WBC (4.5-11.0) K/mm3 RBC (3.65-5.03) M/mm3 Hgb (10.1-14.3) gm/dl Hct (30.3-42.9) % MCV (79-97) fl MCH (28-32) pg MCHC (30-34) % RDW (13.2-15.2) % Plt Count (140-440) K/mm3 Lymph % (Auto) (13.4-35.0) % [place] % (Auto) (0.0-7.3) % Eos % (Auto) (0.0-4.3) % Baso % (Auto) (0.0-1.8) % Lymph # (Auto) (1.2-5.4) K/mm3 [place] # (Auto) (0.0-0.8) K/mm3 Eos # (Auto) (0.0-0.4) K/mm3 Baso # (Auto) (0.0-0.1) K/mm3 Seg Neutrophils % (40.0-70.0) % Seg Neutrophils # (1.8-7.7) K/mm3 Sodium (137-145) mmol/L Potassium (3.6-5.0) mmol/L Chloride (98-107) mmol/L Carbon Dioxide (22-30) mmol/L Anion Gap mmol/L BUN (7-17) mg/dL Creatinine (0.6-1.2) mg/dL Estimated GFR ml/min BUN/Creatinine Ratio % Glucose (65-100) mg/dL POC Glucose 98 (70-105) Calcium (8.4-10.2) mg/dL Troponin T (0.00-0.029) ng/mL Digoxin 1.0 (0.9-2.0) ng/mL Plasma/Serum Alcohol (0-0.07) % 05/10/20 22:20 EKG obtained 6 EKG interpreted by me Atrial fibrillation versus atrial flutter ventricular rate 95 bpm normal axis prolonged QTC no ST elevation - Radiology Data Radiology results: report reviewed CT head: No acute intracranial abnormality, Mucosal thickening in the sphenoid sinus Chest radiograph: Patchy airspace opacity right lung base - Medical Decision Making This is a 70-year-old female who presents with TIA symptoms including slurred speech and confusion. Patient has a history of atrial fibrillation. I have spoken with drapery and upholstery measurer on-call Dr. Chen who recommended holding anticoagulation until cardiology consultation tomorrow. I have reviewed labs which remarkable for persistent leukocytosis. Chemistry coagulation profile otherwise within normal notes. Patient is admitted to the hospitalist service. Critical care attestation.: If time is entered above; I have spent that time in minutes in the direct care of this critically ill patient, excluding procedure time. ED Disposition Clinical Impression: TIA (transient ischemic attack), Community acquired pneumonia, Atrial fibrillation, History of CHF (congestive heart failure) Disposition: OP ADMIT IP TO THIS HOSP Is pt being admited?: Yes Does the pt Need Aspirin: No Condition: Stable
--- NOTE | 2020-05-10 22:50 | Cat Scan Report ---
CT HEAD WITHOUT CONTRAST INDICATION: Stroke symptoms TECHNIQUE: Axial slices were obtained through the head. Coronal and sagittal reformatted images were obtained. COMPARISON: None available. FINDINGS: There is no intracranial hemorrhage or extra-axial fluid collection. Ventricles, basilar cisterns, an d sulci appear within normal limits for age. There is no mass lesion or midline shift. No acute aaron torial infarct is identified. Bone windows demonstrate no acute osseous abnormality. There is mucosal thickening in the right aspec t of the sphenoid sinus. TECHNIQUE: All CT scans at this facility use dose modulation, iterative reconstruction, automated ex posure control, weight based dosing, when appropriate, to reduce radiation dose to as low as reasonab ly achievable. IMPRESSION: 1. No acute intracranial abnormality. 2. There is mucosal thickening in the sphenoid sinus. Signer Name: Everardo Lange MD Signed: 05/10/2020 10:46 PM Workstation Name: [id number]
[2020-05-10 22:51] LABS: Basophils # (Auto) 0.1 K/mm3 (0.0-0.1); Basophils % (Auto) 0.7 % (0.0-1.8); Eosinophils % (Auto) 0.2 % (0.0-4.3); Hematocrit 42.9 % (30.3-42.9); Hemoglobin 14.2 gm/dl (10.1-14.3); Lymphocytes # (Auto) 2.1 K/mm3 (1.2-5.4); Lymphocytes % (Auto) 15.5 % (13.4-35.0); Mean Corpuscular HGB Conc 33 % (30-34); Mean Corpuscular Volume 85 fl (79-97); Monocytes # (Auto) 1.3 K/mm3 (0.0-0.8); Monocytes % (Auto) 9.7 % (0.0-7.3); Platelet Count 226 K/mm3 (140-440); Red Blood Count 5.04 M/mm3 (3.65-5.03); Red Cell Distribution Width 15.9 % (13.2-15.2)
[2020-05-10 23:06] LABS: BUN/Creatinine Ratio 12; Blood Urea Nitrogen 15 mg/dL (7-17); Calcium 9.7 mg/dL (8.4-10.2); Hemolysis Index 7
--- NOTE | 2020-05-10 23:21 | XRay Report ---
CHEST 1 VIEW INDICATION / CLINICAL INFORMATION: suspected TIA hx of pneumonia. COMPARISON: 04/28/2020 FINDINGS: SUPPORT DEVICES: AICD appears unchanged HEART / MEDIASTINUM: No significant abnormality. LUNGS / PLEURA: There is some persistent patchy airspace opacity in the right lung base.. No pneumot horax. ADDITIONAL FINDINGS: No significant additional findings. IMPRESSION: 1. There is patchy airspace opacity in the right lung base. The remainder the lungs are clear. Signer Name: Everardo Lange MD Signed: 05/10/2020 11:17 PM Workstation Name: [id number]
--- NOTE | 2020-05-10 23:36 | History and Physical Report ---
History of Present Illness Date of examination: 05/10/20 Date of admission: 05/10/2020 Chief complaint: Slurred Speech Altered mental status History of present illness: 70-year-old female with known history of breast cancer in remission, congestive heart failure, hypertension and atrial fibrillation was just recently discharged from this hospital about a week ago for pneumonia presenting to the emergency room today with a sudden onset of slurred speech and confusion which was observed by family today. EMS was subsequently called however patient decided to come in a private vehicle. She indicates she was unable to get around thoughts and words together. She denies any headache and denies any dizziness. She denies any fever or chills, no chest pain or shortness of breath, no nausea or vomiting, no abdominal pain, no hematuria or dysuria. Symptoms lasted for less than 30 minutes. Upon arrival in the emergency room symptoms was said to have cleared up. Patient states she has been following up with Dr. Meade in the past for cardiac history however she has been lost to follow-up lately due to the Covid 19 pandemic. Work-up in the emergency room today CT scan did not reveal any significant abnormality, labs were also unremarkable. EKG shows atrial fibrillation. She became slightly hypotensive in the emergency room and was given a bolus of 250 cc normal saline with improvement in her blood pressure. Patient will be admitted for work-up of TIA. Past History Past Medical History: atrial fib, heart failure, hypertension, other (Breast Ca, s/p mastectomy, chemo and radiation therapy) Past Surgical History: Other (Rhinoplasty,left mastectomy,Partial Throidectomy,Defibrillator placement.) Social history: no significant social history Family history: no significant family history Medications and Allergies Allergies Allergy/AdvReac Type Severity Reaction Status Date / Time ondansetron [From Zofran] Allergy Rash Verified 04/28/20 04:09 Home Medications Medication Instructions Recorded Confirmed Last Taken Type Clonidine HCl [Catapres] 0.3 mg PO QHS #30 04/29/20 05/11/20 05/09/20 21:00 Rx Digoxin [Lanoxin] 0.125 mg PO DAILY #30 04/29/20 05/11/20 05/09/20 21:00 Rx Furosemide [Lasix TAB] 40 mg PO QDAY #30 04/29/20 05/11/20 05/09/20 21:00 Rx Spironolactone [Aldactone] 25 mg PO QDAY #30 tablet 04/29/20 05/11/20 05/10/20 09:00 Rx carvediloL [Coreg] 25 mg PO BID #60 04/29/20 05/11/20 05/10/20 09:00 Rx Aspirin EC [Ecotrin] 325 mg PO DAILY 05/11/20 05/11/20 05/10/20 09:00 History Promethazine [Phenergan] 25 mg PO Q6HR PRN 05/11/20 05/11/20 Unknown History Valsartan 320 mg PO DAILY 05/11/20 05/11/20 05/10/20 09:00 History Review of Systems Constitutional: no fever, no chills Ears, nose, mouth and throat: no nasal congestion, no sore throat Cardiovascular: palpitations, no chest pain, no syncope Respiratory: no cough, no shortness of breath Gastrointestinal: no abdominal pain, no nausea, no vomiting, no diarrhea Genitourinary Female: no pelvic pain, no flank pain, no hematuria Musculoskeletal: no neck pain, no low back pain Integumentary: no rash, no pruritis Neurological: change in speech, confusion, no syncope, no headaches Psychiatric: no anxiety, no depression Exam - Constitutional Vitals: Temp Pulse Resp BP Pulse Ox 98.0 F 51 L 18 101/72 96 05/10/20 21:46 05/10/20 21:46 05/10/20 22:19 05/10/20 21:46 05/10/20 21:46 General appearance: Present: no acute distress, well-nourished - EENT Eyes: Present: PERRL, EOM intact. Absent: scleral icterus ENT: hearing intact, clear oral mucosa, dentition normal - Neck Neck: Present: supple, normal ROM - Respiratory Respiratory effort: normal Respiratory: bilateral: CTA - Cardiovascular Rhythm: irregularly irregular Heart Sounds: Present: S1 & S2. Absent: gallop, systolic murmur, diastolic murmur, rub - Extremities Extremities: no ischemia, pulses intact, pulses symmetrical, No edema, Full ROM Peripheral Pulses: within normal limits - Abdominal General gastrointestinal: Present: soft, non-tender, non-distended, normal bowel sounds. Absent: mass - Integumentary Integumentary: Present: clear, warm, dry - Musculoskeletal Musculoskeletal: strength equal bilaterally - Psychiatric Psychiatric: appropriate mood/affect, intact judgment & insight, memory intact, cooperative - Neurologic Neurologic: CNII-XII intact, no focal deficits, moves all extremities HEART Score - HEART Score Troponin: Troponin T < 0.010 ng/mL (0.00-0.029) 05/10/20 22:31 Results - Labs CBC & Chem 7: 05/10/20 22:31 05/10/20 22:31 Labs: Abnormal lab results 05/10/20 05/10/20 Range/Units 22:31 22:31 WBC 13.8 H (4.5-11.0) K/mm3 RBC 5.04 H (3.65-5.03) M/mm3 RDW 15.9 H (13.2-15.2) % [place] % (Auto) 9.7 H (0.0-7.3) % [place] # (Auto) 1.3 H (0.0-0.8) K/mm3 Seg Neutrophils % 73.9 H (40.0-70.0) % Seg Neutrophils # 10.2 H (1.8-7.7) K/mm3 Creatinine 1.3 H (0.6-1.2) mg/dL Glucose 125 H (65-100) mg/dL Assessment and Plan - Patient Problems (1) TIA (transient ischemic attack) Current Visit: Yes Status: Acute Plan to address problem: Patient placed on daily aspirin and statin. We will schedule for carotid Doppler, echocardiogram and MRI of the brain. We will request neurology evaluation and recommendation. (2) Atrial fibrillation Current Visit: Yes Status: Acute Plan to address problem: Patient has known history of atrial fibrillation. Rate is currently controlled. She has been lost to follow-up with heavy equipment operating engineer due to the pandemic. Patient follows up with Dr. Meade. (3) History of breast cancer Current Visit: No Status: Acute Plan to address problem: Patient currently in remission. She has had a left mastectomy, chemotherapy and radiation therapy. (4) DVT prophylaxis Current Visit: Yes Status: Acute Plan to address problem: We will place patient on subcutaneous heparin. (5) Full code status Current Visit: Yes Status: Acute
[2020-05-10] MEDS ORDERED: ASPIRIN 81 MG TAB CHEW PO ONE (23:40)
[2020-05-10] MEDS ORDERED: MORPHINE 2 MG/1 ML INJ IV PRN (23:42)
[2020-05-10] MEDS ORDERED: ONDANSETRON 4 MG/2 ML INJ IV PRN ×2 (23:42)
[2020-05-10] MEDS ORDERED: PROMETHAZINE 25 MG RECT SUPP PR PRN (23:42)
[2020-05-10] MEDS ORDERED: MAGNESIUM HYDROXIDE (MOM) ORAL LIQD UDC PO PRN ×2 (23:42)
[2020-05-10] MEDS ORDERED: ACETAMINOPHEN 325 MG TAB PO PRN ×2 (23:42)
[2020-05-10] MEDS ORDERED: METOCLOPRAMIDE 10 MG TAB PO PRN (23:42)
[2020-05-11 00:10] LABS: INR 1.18 (0.87-1.13)
[2020-05-11 00:11] LABS: Partial Thromboplastin Time 34.7 Sec. (24.2-36.6)
[2020-05-11] MEDS ORDERED: SODIUM CHLORIDE 0.9% 250ML 250 ML IV ONE (00:32)
[2020-05-11] MEDS ORDERED: SODIUM CHLORIDE 0.9% 250ML 250 ML ONE (00:40)
[2020-05-11 05:29] LABS: Basophils # (Auto) 0.1 K/mm3 (0.0-0.1); Basophils % (Auto) 0.6 % (0.0-1.8); Eosinophils % (Auto) 0.3 % (0.0-4.3); Hematocrit 39.3 % (30.3-42.9); Hemoglobin 13.2 gm/dl (10.1-14.3); Lymphocytes # (Auto) 2.1 K/mm3 (1.2-5.4); Lymphocytes % (Auto) 21.4 % (13.4-35.0); Mean Corpuscular HGB Conc 34 % (30-34); Mean Corpuscular Volume 85 fl (79-97); Monocytes % (Auto) 9.9 % (0.0-7.3); Platelet Count 197 K/mm3 (140-440); Red Blood Count 4.63 M/mm3 (3.65-5.03); Red Cell Distribution Width 16.1 % (13.2-15.2)
[2020-05-11 05:38] LABS: INR 1.24 (0.87-1.13)
[2020-05-11] MEDS: HEPARIN 5,000 UNIT/1 ML VIAL SUB-Q SCH ×3 (06:19→22:26)
[2020-05-11 08:10] LABS: Bilirubin,Urine NEG (Negative); Blood,Urine NEG (Negative); Color,Urine Yellow (Yellow); Hyaline Casts,Urine 39 /LPF; Mucus,Urine 2+ /HPF; Urobilinogen,Urine < 2.0 mg/dL (<2.0)
[2020-05-11 08:11] LABS: Bacteria,Urine 1+ /HPF (Negative)
[2020-05-11 08:21] LABS: Amphetamine Screen,Urine PRESUMPTIVE NEGATIVE; Benzodiazepines Screen,Urine PRESUMPTIVE NEGATIVE; Cannabinoid Screen,Urine PRESUMPTIVE NEGATIVE; Cocaine Screen,Urine PRESUMPTIVE NEGATIVE; Methadone Screen,Urine PRESUMPTIVE NEGATIVE; Opiate Screen,Urine PRESUMPTIVE NEGATIVE
[2020-05-11] MEDS ORDERED: LISINOPRIL 5 MG TAB PO SCH (10:00)
[2020-05-11] MEDS: carvediloL 25 MG TAB PO SCH ×2 (10:11→22:26)
[2020-05-11] MEDS: ASPIRIN 325 MG TAB PO SCH (10:11)
[2020-05-11] MEDS: SPIRONOLACTONE 25 MG TAB PO SCH (10:11)
--- NOTE | 2020-05-11 10:45 | Consultation ---
History of Present Illness Consult date: 05/11/20 Requesting physician: EWA ARENAS Reason for Consult: TIA Chief complaint: Transient slurred speech and slowed thinking. History of present illness: 70 yo female with atrial fibrillation (on aspirin at home), defibrillator, htn, chf, recent pneumonia, breast cancer in remission, p/w a transient episode of slurred speech and a sense of slowing of her thought processes. She notes she felt back to her normal self this morning around 6 am or 7 am. Initial NIHSS in the ED was 0. Currently, she notes no symptoms at all. Notes a hx of taking Coumadin in that past and had severe bruising. She was taken off Coumadin several years ago. Notes she takes aspirin 81 mg every day. Past History Past Medical History: atrial fib, heart failure, hypertension, other (Breast Ca, s/p mastectomy, chemo and radiation therapy) Past Surgical History: Other (Rhinoplasty,left mastectomy,Partial Throidectomy,Defibrillator placement.) Social history: no significant social history Family history: no significant family history Medications and Allergies Allergies Allergy/AdvReac Type Severity Reaction Status Date / Time ondansetron [From Zofran] Allergy Rash Verified 04/28/20 04:09 Home Medications Medication Instructions Recorded Confirmed Last Taken Type Clonidine HCl [Catapres] 0.3 mg PO QHS #30 04/29/20 05/11/20 05/09/20 21:00 Rx Digoxin [Lanoxin] 0.125 mg PO DAILY #30 04/29/20 05/11/20 05/09/20 21:00 Rx Furosemide [Lasix TAB] 40 mg PO QDAY #30 04/29/20 05/11/20 05/09/20 21:00 Rx Spironolactone [Aldactone] 25 mg PO QDAY #30 tablet 04/29/20 05/11/20 05/10/20 09:00 Rx carvediloL [Coreg] 25 mg PO BID #60 04/29/20 05/11/20 05/10/20 09:00 Rx Aspirin EC [Ecotrin] 325 mg PO DAILY 05/11/20 05/11/20 05/10/20 09:00 History Promethazine [Phenergan] 25 mg PO Q6HR PRN 05/11/20 05/11/20 Unknown History Valsartan 320 mg PO DAILY 05/11/20 05/11/20 05/10/20 09:00 History Active Meds: Active Medications Acetaminophen (Tylenol) 650 mg PO Q4H PRN PRN Reason: Pain MILD(1-3)/Fever >100.5/NAVAS Aspirin (Aspirin) 325 mg PO QDAY [facility] Last Admin: 05/11/20 10:11 Dose: 325 mg Documented by: Atorvastatin Calcium (Lipitor) 40 mg PO QHS [facility] Bisacodyl (Dulcolax) [address] QDAY PRN PRN Reason: Constipation Carvedilol (Coreg) 25 mg PO BID [facility] Last Admin: 05/11/20 10:11 Dose: 25 mg Documented by: Digoxin (Lanoxin) 0.125 mg PO DAILY@1700 [facility] Heparin Sodium (Porcine) (Heparin) 5,000 unit SUB-Q Q8HR [facility] Last Admin: 05/11/20 06:19 Dose: 5,000 unit Documented by: Lisinopril (Zestril) 2.5 mg PO QDAY [facility] Last Admin: 05/11/20 10:12 Dose: 2.5 mg Documented by: Magnesium Hydroxide (Milk Of Magnesia) 30 ml PO Q4H PRN PRN Reason: Constipation Metoclopramide HCl (Reglan) 10 mg PO Q6H PRN PRN Reason: Nausea And Vomiting Morphine Sulfate (Morphine) 2 mg IV Q4H PRN PRN Reason: Pain, Moderate (4-6) Promethazine HCl (Phenergan) [address] Q6H PRN PRN Reason: Nausea And Vomiting Sodium Chloride (Sodium Chloride Flush Syringe 10 Ml) 10 ml IV BID [facility] Last Admin: 05/11/20 10:15 Dose: 10 ml Documented by: Sodium Chloride (Sodium Chloride Flush Syringe 10 Ml) 10 ml IV PRN PRN PRN Reason: LINE FLUSH Spironolactone (Aldactone) 25 mg PO QDAY [facility] Last Admin: 05/11/20 10:11 Dose: 25 mg Documented by: Review of Systems All systems: negative (as per HPI;) Physical Examination - Vital Signs Vital Signs: Vital Signs Temp Pulse Resp BP Pulse Ox 98.0 F 51 L 15 101/72 96 05/10/20 21:46 05/10/20 21:46 05/10/20 21:46 05/10/20 21:46 05/10/20 21:46 - Additional Exam Additional Exam: Gen: nad, well-nourished; Head: normocephalic; Eyes: no gaze deviation; no ptosis; ENT: normal vocalization; CVS: warm and well-perfused; Pulm: no respiratory distress;; GI: non-distended; Ext: no cyanosis at distal extremities; Skin: no acute rash at distal extremities; Heme: no pathologic ecchymosis at distal extremities; Neuro: alert, oriented to name, age, month, surroundings, no dysarthria, no aphasia, CN 2 - PERRL, visual rasheed intact, CN 3, 4, 6 - EOMI, CN 5 - facial s ensation symmetric to light touch, CN 7 - facial movement symmetric, CN 8 - hearing grossly intact, CN 9, 10 - uvula midline, CN 11 - shrug symmetric, CN 12 - tongue midline; Motor - at least 4/5 in all exts; Sensory - light touch symmetric, Cerebellar - fnf /htsintact, Gait - deferred secondary to fall risk; NIHSS (1a.) Level of Consciousness:0 (1b.) LOC Questions:0 (1c.) LOC Commands:0 (2.) Best Gaze:0 (3.) Visual:0 (4.) Facial Palsy:0 (5a.) Motor Arm, Left:0 (5b.) Motor Arm, Right:0 (6a.) Motor Leg, Left:0 (6b.) Motor Leg, Right:0 (7.) Limb Ataxia:0 (8.) Sensory:0 (9.) Best Language:0 (10.) Dysarthria:0 (11.) Extinction and Inattention:0 NIHSS Total Score:0 ABCD2: 5 Results - Laboratory Findings CBC and BMP: 05/11/20 04:41 05/10/20 22:31 Abnormal Lab Findings: Abnormal Labs 05/10/20 05/10/20 05/10/20 22:31 22:31 23:43 WBC 13.8 H RBC 5.04 H RDW 15.9 H [place] % (Auto) 9.7 H Emanuel # (Auto) 1.3 H Seg Neutrophils % 73.9 H Seg Neutrophils # 10.2 H PT 15.3 H INR 1.18 H Creatinine 1.3 H Glucose 125 H 05/11/20 05/11/20 04:41 04:41 WBC RBC RDW 16.1 H [place] % (Auto) 9.9 H [place] # (Auto) 1.0 H Seg Neutrophils % Seg Neutrophils # PT 15.9 H INR 1.24 H Creatinine Glucose Assessment and Plan 70 yo female with atrial fibrillation (on aspirin at home), defibrillator, htn, chf, recent pneumonia, breast cancer in remission, p/w a transient episode of slurred speech and a sense of slowing of her thought processes. PLAN 1. TIA: ASA 325 mg PO qday, per patient Cardiology will initiate Coumadin (goal INR of 2-3) in the setting of underlying atrial fibrillation; if defibrillator is MRI compatible, recommend MRI Brain w/ w/o contrast, but if MRI-incompatible, recommend CT Head w/ contrast to confirm no underlying neoplasm; pending TTEcho results, CUS is unremarkable, rec baseline LDL/TSH-T4; telemetry, aim for normotension. Statin therapy for a goal LDL of 70, when patient passes swallow evaluation. Long-term risk-factor modification, including a strict diet/exercise regimen for secondary stroke prophylaxis. 2. Hypertension - aim for normotension. 3. CHF - EF of </= 25% increases risk of cardioembolic strokes. 4. Atrial Fibrillation - agree with anticoagulant therapy; per Cardiology, regarding Coumadin vs. NOAC. 5. Hx of breast cancer - confirm no metastatic lesion on CT Head w/ contrast (p resenting as a TIA). Esteban Patel MD Tele-Neurology
--- NOTE | 2020-05-11 11:25 | Consultation ---
History of Present Illness Consult date: 05/11/20 Consult reason: atrial fibrillation History of present illness: This is a 70-year old woman who was recently admitted with respiratory failure, pneumonia, COVID -19 test was negative. She returns with altered mental status and transient slurred speech, admitted for evaluation. Currently undergoing stroke workup. Head CT scan showed no acute intracranial abnormality. Patient has a history of paroxysmal atrial fibrillation, no longer on oral anticoagulation therapy. She has a history of nonischemic cardiomyopathy and has a [employer] cardiac defibrillator insitu. Her latest echocardiogram done a year ago, showed persistent dilated cardiomyopathy with an ejection fraction at 25- 30%. Normal functioning device on her most recent device interrogation. Her presenting ECG showed atrial fibrillation with a well controlled ventricular rate. Laboratory studies shows a digoxin level at 1.0. Past History Past Medical History: atrial fib, heart failure, hypertension, other (Breast Ca, s/p mastectomy, chemo and radiation therapy) Past Surgical History: Other (Rhinoplasty,left mastectomy,Partial Throidectomy,Defibrillator placement.) Social history: no significant social history Family history: no significant family history Medications and Allergies Allergies Allergy/AdvReac Type Severity Reaction Status Date / Time ondansetron [From Zofran] Allergy Rash Verified 04/28/20 04:09 Home Medications Medication Instructions Recorded Confirmed Last Taken Type Clonidine HCl [Catapres] 0.3 mg PO QHS #30 04/29/20 05/11/20 05/09/20 21:00 Rx Digoxin [Lanoxin] 0.125 mg PO DAILY #30 04/29/20 05/11/20 05/09/20 21:00 Rx Furosemide [Lasix TAB] 40 mg PO QDAY #30 04/29/20 05/11/20 05/09/20 21:00 Rx Spironolactone [Aldactone] 25 mg PO QDAY #30 tablet 04/29/20 05/11/20 05/10/20 09:00 Rx carvediloL [Coreg] 25 mg PO BID #60 04/29/20 05/11/20 05/10/20 09:00 Rx Aspirin EC [Ecotrin] 325 mg PO DAILY 05/11/20 05/11/20 05/10/20 09:00 History Promethazine [Phenergan] 25 mg PO Q6HR PRN 05/11/20 05/11/20 Unknown History Valsartan 320 mg PO DAILY 05/11/20 05/11/20 05/10/20 09:00 History Active Meds: Active Medications Acetaminophen (Tylenol) 650 mg PO Q4H PRN PRN Reason: Pain MILD(1-3)/Fever >100.5/NAVAS Aspirin (Aspirin) 325 mg PO QDAY [facility] Last Admin: 05/11/20 10:11 Dose: 325 mg Documented by: Atorvastatin Calcium (Lipitor) 40 mg PO QHS [facility] Bisacodyl (Dulcolax) 10 mg [place] QDAY PRN PRN Reason: Constipation Carvedilol (Coreg) 25 mg PO BID [facility] Last Admin: 05/11/20 10:11 Dose: 25 mg Documented by: Digoxin (Lanoxin) 0.125 mg PO DAILY@1700 [facility] Heparin Sodium (Porcine) (Heparin) 5,000 unit SUB-Q Q8HR [facility] Last Admin: 05/11/20 06:19 Dose: 5,000 unit Documented by: Lisinopril (Zestril) 2.5 mg PO QDAY [facility] Last Admin: 05/11/20 10:12 Dose: 2.5 mg Documented by: Magnesium Hydroxide (Milk Of Magnesia) 30 ml PO Q4H PRN PRN Reason: Constipation Metoclopramide HCl (Reglan) 10 mg PO Q6H PRN PRN Reason: Nausea And Vomiting Morphine Sulfate (Morphine) 2 mg IV Q4H PRN PRN Reason: Pain, Moderate (4-6) Promethazine HCl (Phenergan) 25 mg [place] Q6H PRN PRN Reason: Nausea And Vomiting Sodium Chloride (Sodium Chloride Flush Syringe 10 Ml) 10 ml IV BID [facility] Last Admin: 05/11/20 10:15 Dose: 10 ml Documented by: Sodium Chloride (Sodium Chloride Flush Syringe 10 Ml) 10 ml IV PRN PRN PRN Reason: LINE FLUSH Spironolactone (Aldactone) 25 mg PO QDAY [facility] Last Admin: 05/11/20 10:11 Dose: 25 mg Documented by: Physical Examination Vital Signs Temp Pulse Resp BP Pulse Ox 98.0 F 51 L 15 101/72 96 05/10/20 21:46 05/10/20 21:46 05/10/20 21:46 05/10/20 21:46 10/18/20 21:46 Results 05/11/20 04:41 05/10/20 22:31 Coagulation 05/10/20 05/11/20 Range/Units 23:43 04:41 PT 15.3 H 15.9 H (12.2-14.9) Sec. INR 1.18 H 1.24 H (0.87-1.13) APTT 34.7 (24.2-36.6) Sec. CBC 05/10/20 05/11/20 Range/Units 22:31 04:41 WBC 13.8 H 9.9 (4.5-11.0) K/mm3 RBC 5.04 H 4.63 (3.65-5.03) M/mm3 Hgb 14.2 13.2 (10.1-14.3) gm/dl Hct 42.9 39.3 (30.3-42.9) % Plt Count 226 197 (140-440) K/mm3 Lymph # (Auto) 2.1 2.1 (1.2-5.4) K/mm3 [place] # (Auto) 1.3 H 1.0 H (0.0-0.8) K/mm3 Eos # (Auto) 0.0 0.0 (0.0-0.4) K/mm3 Baso # (Auto) 0.1 0.1 (0.0-0.1) K/mm3 Comprehensive Metabolic Panel 05/10/20 Range/Units 22:31 Sodium 140 (137-145) mmol/L Potassium 4.1 (3.6-5.0) mmol/L Chloride 100.0 (98-107) mmol/L Carbon Dioxide 26 (22-30) mmol/L BUN 15 (7-17) mg/dL Creatinine 1.3 H (0.6-1.2) mg/dL Glucose 125 H (65-100) mg/dL Calcium 9.7 (8.4-10.2) mg/dL Assessment and Plan Acute CVA versus TIA Hx of Nonischemic CMP LVEF 25-30% by echo 02/2019 normal coronaries by [facility] in 2003 Hx of paroxysmal Afib digoxin levet at 1.0. Presence of AICD ([employer]) normal device function by interrogation 01/2020 Hx of Breast Cancer Echocardiogram for cardiac assessment. Continue medical therapy for nonischemic cardiomyopathy and paroxysmal atrial fibrillation.
--- NOTE | 2020-05-11 11:36 | Vascular Lab Report ---
VL carotid duplex BILAT INDICATION / CLINICAL INFORMATION: stroke. COMPARISON: None available. FINDINGS: Only mild plaque formation is demonstrated at the bifurcations, and velocity measurements and wavefor m analysis indicate less than 50% stenosis of each internal carotid artery, according to [place]ascet crite christine. Normal antegrade flow is demonstrated in both vertebral arteries. IMPRESSION: 1. No significant stenosis. Signer Name: Javier Shetty MD Signed: 05/11/2020 11:32 AM Workstation Name: [id number]
--- NOTE | 2020-05-11 14:57 | Progress Note ---
Assessment and Plan --TIA (transient ischemic attack) Patient placed on daily aspirin and statin. We will schedule for carotid Doppler, echocardiogram and MRI of the brain. We will request neurology evaluation and recommendation. -- Atrial fibrillation Patient has known history of atrial fibrillation. Rate is currently controlled. She has been lost to follow-up with radiator fitter due to the pandemic. Patient follows up with Dr. Meade. -- History of breast cancer Patient currently in remission. She has had a left mastectomy, chemotherapy and radiation therapy. -- DVT prophylaxis We will place patient on subcutaneous heparin. -- Full code status Brief History: 70-year-old female with known history of breast cancer in remission, congestive heart failure, hypertension and atrial fibrillation was just recently discharged from this hospital about a week ago for pneumonia presenting to the emergency room now with a sudden onset of slurred speech and confusion. Upon arrival in the emergency room symptoms was said to have cleared up. Work-up in the emergency room today CT scan did not reveal any significant abnormality, labs were also unremarkable. EKG shows atrial fibrillation. She became slightly hypotensive in the emergency room and was given a bolus of 250 cc normal saline with improvement in her blood pressure. Patient was admitted for work-up of TIA. 05/11: neurology recommended repeat CT with contrast as she cannot have MRI. cont to follow Subjective Date of service: 05/11/20 Objective - Exam Narrative Exam: General appearance: Present: no acute distress, well-nourished - EENT Eyes: Present: PERRL, EOM intact. Absent: scleral icterus ENT: hearing intact, clear oral mucosa, dentition normal - Neck Neck: Present: supple, normal ROM - Respiratory Respiratory effort: normal Respiratory: bilateral: CTA - Cardiovascular Rhythm: irregularly irregular Heart Sounds: Present: S1 & S2. Absent: gallop, systolic murmur, diastolic murm ur, rub - Extremities Extremities: no ischemia, pulses intact, pulses symmetrical, No edema, Full ROM Peripheral Pulses: within normal limits - Abdominal General gastrointestinal: Present: soft, non-tender, non-distended, normal bowel sounds. Absent: mass - Integumentary Integumentary: Present: clear, warm, dry - Musculoskeletal Musculoskeletal: strength equal bilaterally - Psychiatric Psychiatric: appropriate mood/affect, intact judgment & insight, memory intact, cooperative - Neurologic Neurologic: CNII-XII intact, no focal deficits, moves all extremities - Constitutional Vitals: Vital Signs - 12hr 05/11/20 05/11/20 05/11/20 04:10 07:28 14:47 Temperature 98.0 F 98.6 F Pulse Rate 71 54 L 54 L Respiratory 18 18 Rate Blood Pressure 119/70 124/59 O2 Sat by Pulse 98 97 Oximetry - Labs CBC & Chem 7: 05/11/20 04:41 05/10/20 22:31 Labs: Abnormal lab results 05/10/20 05/10/20 05/10/20 Range/Units 22:31 22:31 23:43 WBC 13.8 H (4.5-11.0) K/mm3 RBC 5.04 H (3.65-5.03) M/mm3 RDW 15.9 H (13.2-15.2) % [place] % (Auto) 9.7 H (0.0-7.3) % [place] # (Auto) 1.3 H (0.0-0.8) K/mm3 Seg Neutrophils % 73.9 H (40.0-70.0) % Seg Neutrophils # 10.2 H (1.8-7.7) K/mm3 PT 15.3 H (12.2-14.9) Sec. INR 1.18 H (0.87-1.13) Creatinine 1.3 H (0.6-1.2) mg/dL Glucose 125 H (65-100) mg/dL 05/11/20 05/11/20 Range/Units 04:41 04:41 WBC (4.5-11.0) K/mm3 RBC (3.65-5.03) M/mm3 RDW 16.1 H (13.2-15.2) % [place] % (Auto) 9.9 H (0.0-7.3) % [place] # (Auto) 1.0 H (0.0-0.8) K/mm3 Seg Neutrophils % (40.0-70.0) % Seg Neutrophils # (1.8-7.7) K/mm3 PT 15.9 H (12.2-14.9) Sec. INR 1.24 H (0.87-1.13) Creatinine (0.6-1.2) mg/dL Glucose (65-100) mg/dL HEART Score - HEART Score Troponin: Troponin T < 0.010 ng/mL (0.00-0.029) 05/10/20 22:31
[2020-05-11] MEDS: AZITHROMYCIN 250 MG TAB PO SCH (16:30)
[2020-05-11] MEDS ORDERED: DIGOXIN 0.125 MG TAB PO SCH (17:00)
--- NOTE | 2020-05-12 00:14 | Cat Scan Report ---
CONTRAST-ENHANCED CT SCAN OF THE HEAD: INDICATION / CLINICAL INFORMATION: 70 years Female; Metastasis. TECHNIQUE: Routine CT head without contrast. All CT scans at this location are performed using CT dos e reduction for ALARA by means of automated exposure control. COMPARISON: Unenhanced CT scan of the head from 06/10/2020 FINDINGS: BRAIN / INTRACRANIAL CONTENTS: 1. 1 cm sized enhancing extra-axial lesion is seen along the left petrous bone, posterior and lateral to left porus acusticus. I am considering this a meningioma. 2. No enhancing intra-axial lesion is seen. No enhancing parenchymal lesions or focal area of vasogen ic edema. 3. No calvarial lesion 4. Significant mucosal thickening in the right sphenoid sinus; bony dehiscence along the lateral wall of left sphenoid sinus; no cephalocele or meningocele CRANIOCERVICAL JUNCTION: No significant abnormality. ORBITS: No significant abnormality of visualized orbits. SINUSES / MASTOIDS: No significant abnormality of the visualized paranasal sinuses or mastoid air rosalie ls. ADDITIONAL FINDINGS: None. IMPRESSION: No Parenchymal metastases 1 cm sized meningeal-based extra-axial lesion along the left temporal bone; most likely meningioma Signer Name: Ashley Flores MD Signed: 05/12/2020 12:10 AM Workstation Name: [id number]
[2020-05-12] MEDS: HEPARIN 5,000 UNIT/1 ML VIAL SUB-Q SCH (06:19)
[2020-05-12] MEDS: AZITHROMYCIN 250 MG TAB PO SCH (10:08)
[2020-05-12] MEDS: SPIRONOLACTONE 25 MG TAB PO SCH (10:08)
[2020-05-12] MEDS: carvediloL 25 MG TAB PO SCH (10:08)
[2020-05-12] MEDS: ASPIRIN 325 MG TAB PO SCH (10:08)
[2020-05-12 10:38] LABS: Calcium 9.5 mg/dL (8.4-10.2)
--- NOTE | 2020-05-12 10:50 | Progress Note ---
Assessment and Plan Transient TIA Atrial fibrillation, paroxysmal digoxin level at 1.0. Hx of Nonischemic CMP LVEF 25-30% by echo this presentation. Negative bubble study. normal coronaries by [facility] in 2004 Presence of AICD ([employer]) normal device function by interrogation 01/2020 Hx of Breast Cancer Recommendations: Continue medical therapy for nonischemic cardiomyopathy and paroxysmal atrial fibrillation. Oral anticoagulation with Eliquis when okay with Neurology. Subjective Date of service: 05/12/20 Interval history: Patient is resting in bed and appears comfortable. Atrial fibrillation with a well controlled ventricular rate on telemetry. Objective Vital Signs Temp Pulse Resp BP Pulse Ox 05/12/20 10:08 55 L 148/76 05/12/20 07:35 98.8 F 75 20 132/87 97 05/12/20 06:00 85 05/12/20 03:54 99.3 F 95 H 20 134/76 97 05/11/20 23:32 18 05/11/20 23:19 99.5 F 66 16 144/71 98 05/11/20 22:26 87 136/76 05/11/20 22:00 99 H 05/11/20 20:00 99.5 F 87 16 136/76 97 05/11/20 15:50 98.1 F 61 20 112/67 97 05/11/20 14:47 54 L 05/11/20 14:11 98 - Physical Examination General: No Apparent Distress HEENT: Positive: PERRL Neck: Positive: trachea midline Cardiac: Positive: irregularly irregular Lungs: Positive: Decreased Breath Sounds Neuro: Positive: Grossly Intact - Labs and Meds Comprehensive Metabolic Panel 05/12/20 Range/Units 08:52 Sodium 139 (137-145) mmol/L Potassium 4.3 (3.6-5.0) mmol/L Chloride 102.8 (98-107) mmol/L Carbon Dioxide 23 (22-30) mmol/L BUN 20 H (7-17) mg/dL Creatinine 1.3 H (0.6-1.2) mg/dL Glucose 112 H (65-100) mg/dL Calcium 9.5 (8.4-10.2) mg/dL
[2020-05-12] MEDS ORDERED: VALSARTAN 40 MG TAB PO SCH (13:00)
[2020-05-12] MEDS ORDERED: APIXABAN 5 MG TAB PO SCH (13:00)
--- NOTE | 2020-05-12 13:27 | Discharge Summary ---
Providers - Providers Date of Admission: 05/10/20 23:42 Date of discharge: 05/19/20 Attending physician: GEOVANY CONTRERAS 05/10/20 Consult to Physician [CONS] Routine Comment: Consulting Provider: CHAZ TADEO Physician Instructions: Reason For Exam: TIA 05/10/20 22:22 Consult to Physician [CONS] Stat Comment: Consulting Provider: ASHKAN EMMANUEL Physician Instructions: Reason For Exam: TIA, atrial fibrillation 05/10/20 23:43 Consult to Dietitian/Nutrition [CONS] Routine Physician Instructions: Reason For Exam: Reason for Consult: Nutrition Recommendations Reason for Consult: Diet education Occupational Therapy Evaluate and Treat [CONS] Routine Comment: Reason For Exam: Neuro deficits Physical Therapy Evaluation and Treat [CONS] Routine Comment: Reason For Exam: Neuro deficits Primary care physician: DIRECTOR OF RESIDENTIAL SERVICES Hospitalization Condition: Stable Disposition: DC-01 TO HOME OR SELFCARE Time spent for discharge: 34 minutes Core Measure Documentation - Palliative Care Palliative Care/ Comfort Measures: Not Applicable - Core Measures Any of the following diagnoses?: none Exam - Physical Exam Narrative exam: General appearance: Present: no acute distress, well-nourished - EENT Eyes: Present: PERRL, EOM intact. Absent: scleral icterus ENT: hearing intact, clear oral mucosa, dentition normal - Neck Neck: Present: supple, normal ROM - Respiratory Respiratory effort: normal Respiratory: bilateral: CTA - Cardiovascular Rhythm: irregularly irregular Heart Sounds: Present: S1 & S2. Absent: gallop, systolic murmur, diastolic murmur, rub - Extremities Extremities: no ischemia, pulses intact, pulses symmetrical, No edema, Full ROM Peripheral Pulses: within normal limits - Abdominal General gastrointestinal: Present: soft, non-tender, non-distended, normal bowel sounds. Absent: mass - Integumentary Integumentary: Present: clear, warm, dry - Musculoskeletal Musculoskeletal: strength equal bilaterally - Psychiatric Psychiatric: appropriate mood/affect, intact judgment & insight, memory intact, cooperative - Neurologic Neurologic: CNII-XII intact, no focal deficits, moves all extremities - Constitutional Vitals: Temp Pulse Resp BP Pulse Ox 98.8 F 55 L 18 148/76 97 05/12/20 07:35 05/12/20 10:08 05/12/20 10:00 05/12/20 10:08 05/12/20 07:35 Plan Activity: advance as tolerated Weight Bearing Status: Weight Bear as Tolerated Follow up with: PRIMARY MD KARON [Primary Care Provider] - 7 Days SIL DELANEY MD [Staff Physician] - 7 Days Prescriptions: AtorvaSTATin [Lipitor] 40 mg PO QHS #30 tablet Valsartan [Diovan] 80 mg PO QDAY #30 tablet Apixaban [Eliquis] 5 mg PO Q12HR #60 tablet Aspirin EC [Halfprin EC] 81 mg PO QDAY #30 tablet Azithromycin [Zithromax TAB] 500 mg PO QDAY #3 tablet
[2020-05-12 13:37] VITALS: BP 147/76
[2020-05-12 16:12] LABS: Calcium 9.7 mg/dL (8.4-10.2); Chol/HDL Ratio 3.57 %
[2020-05-13] MEDS ORDERED: ASPIRIN EC 81 MG TAB PO SCH (10:00)
== END 2020-05-12 15:49 | disposition home or self-care (01) ==
LOC: ED 21:40 → 4A 23:42
PROVIDERS: ADMIT Internal Medicine Geriatric Medicine; ATTEND Internal Medicine
DX: G45.9 Transient cerebral ischemic attack, unspecified (principal); I11.0 Hypertensive heart disease with heart failure; I50.9 Heart failure, unspecified; I48.0 Paroxysmal atrial fibrillation; J18.9 Pneumonia, unspecified organism; Z85.3 Personal history of malignant neoplasm of breast; Z92.21 Personal history of antineoplastic chemotherapy; Z92.3 Personal history of irradiation; Z90.12 Acquired absence of left breast and nipple; Z95.810 Presence of automatic (implantable) cardiac defibrillator; Z79.82 Long term (current) use of aspirin; Z79.899 Other long term (current) drug therapy; Z88.8 Allergy status to other drugs, medicaments and biological substances
CPT/HCPCS: 36415; 70450; 70460; 71045; 80048; 80061; 80162; 80307; 81001; 82962; 84484; 85025; 85610; 85730; 87641; 93005; 93306; 93880; 96372; 97162; 97165; 99285; A9270; G0378; J1644; J7050; Q9967; 80320; G0480

== ENCOUNTER 2020-06-10 18:42 | Observation (INO) | payer MEDICARE ==
[2020-06-10] MEDS ORDERED: METOCLOPRAMIDE 10 MG/2 ML INJ IV ONE ×2 (20:16→20:18)
--- NOTE | 2020-06-10 20:19 | Emergency Department Report ---
ED Chest Pain HPI - General Chief Complaint: Chest Pain Stated Complaint: ANSELMO/CHEST PAIN PUI?: No Time Seen by Provider: 06/10/20 20:01 Source: patient, family Mode of arrival: Ambulatory Limitations: No Limitations - History of Present Illness Initial Comments: Patient is a 70-year-old female that presents emergency room with complaints of chest pain. Patient states that her chest pain started this morning at 10 AM. Patient also complains of shortness of breath. Patient states that her chest pain is better with rest and worse with exertion. Patient states that her shortness of breath is better with rest and worse with exertion. Patient dates her chest pain is a 7 out of 10. Patient denies fever and chills. Patient denies cough. Patient states she has a past medical history of congestive heart failure, hypertension, hyperlipidemia, CVA, A. fib. Patient states she is on Eliquis 5 mg twice a day and she is compliant with her medications. Patient is also on Lipitor, Coreg, Aldactone, Lasix and dig. Patient denies recent travel. Patient denies recent international travel. Patient denies exposure to the novel coronavirus. Patient denies sick contacts. Patient denies fever and chills. Patient denies cough. Patient denies diarrhea. Patient denies coming in contact with anybody with symptoms of the novel coronavirus. MD Complaint: chest pain -: Sudden Onset: during rest Pain Location: left chest Pain Radiation: none Severity scale (0 -10): 7 Quality: sharp Consistency: constant Improves With: rest Worsens With: exertion re: nausea, vomting, diaphoresis, dyspnea. denies: sense of impending doom Other Symptoms: denies: cough, fever, syncope, rash, acid taste in mouth, leg swelling, palpitations, burping Treatments Prior to Arrival: none Aspirin use within the Past 7 Days: (1) Yes - Related Data On Oral Contraceptives: No Previous Rx's Medication Instructions Recorded Last Taken Type Digoxin [Lanoxin] 0.125 mg PO DAILY #30 04/29/20 05/09/20 21:00 Rx Furosemide [Lasix TAB] 40 mg PO QDAY #30 04/29/20 05/09/20 21:00 Rx Spironolactone [Aldactone] 25 mg PO QDAY #30 tablet 04/29/20 05/10/20 09:00 Rx carvediloL [Coreg] 25 mg PO BID #60 04/29/20 05/10/20 09:00 Rx Apixaban [Eliquis] 5 mg PO Q12HR #60 tablet 05/12/20 Unknown Rx AtorvaSTATin [Lipitor] 40 mg PO QHS #30 tablet 05/12/20 Unknown Rx Allergies Allergy/AdvReac Type Severity Reaction Status Date / Time ondansetron [From Zofran] Allergy Rash Verified 04/28/20 04:09 Heart Score - HEART Score History: Moderately suspicious EKG: Non-specific Age: > 65 Risk factors: > 3 risk factors or hx of atherosclerotic disease Troponin: < normal limit HEART Score: 6 ED Review of Systems ROS: Stated complaint: ANSELMO/CHEST PAIN Other details as noted in HPI Constitutional: denies: chills, fever Eyes: denies: eye pain, eye discharge, vision change ENT: denies: ear pain, throat pain Respiratory: shortness of breath. denies: cough, wheezing Cardiovascular: chest pain. denies: palpitations Endocrine: no symptoms reported Gastrointestinal: nausea, vomiting. denies: abdominal pain, diarrhea Genitourinary: denies: urgency, dysuria, discharge Musculoskeletal: denies: back pain, joint swelling, arthralgia Skin: denies: rash, lesions Neurological: denies: headache, weakness, paresthesias Psychiatric: denies: anxiety, depression Hematological/Lymphatic: denies: easy bleeding, easy bruising ED Past Medical Hx - Past Medical History Previous Medical History?: Yes Hx Hypertension: Yes Hx CVA: Yes Hx Congestive Heart Failure: Yes (Defibrilator) Hx of Cancer: Yes (Breast) - Surgical History Past Surgical History?: Yes Hx Breast Surgery: Yes Additional Surgical History: Partial Thyroid removed, Rhinoplasty - Family History Family history: no significant - Social History Smoking Status: Never Smoker Substance Use Type: None - Medications Home Medications: Home Medications Medication Instructions Recorded Confirmed Last Taken Type Digoxin [Lanoxin] 0.125 mg PO DAILY #30 04/29/20 06/10/20 05/09/20 21:00 Rx Furosemide [Lasix TAB] 40 mg PO QDAY #30 04/29/20 06/10/20 05/09/20 21:00 Rx Spironolactone [Aldactone] 25 mg PO QDAY #30 tablet 04/29/20 06/10/20 05/10/20 09:00 Rx carvediloL [Coreg] 25 mg PO BID #60 04/29/20 06/10/20 05/10/20 09:00 Rx Apixaban [Eliquis] 5 mg PO Q12HR #60 tablet 05/12/20 06/10/20 Unknown Rx AtorvaSTATin [Lipitor] 40 mg PO QHS #30 tablet 05/12/20 06/10/20 Unknown Rx ED Physical Exam - General Limitations: No Limitations General appearance: alert, in no apparent distress - Head Head exam: Present: atraumatic, normocephalic - Eye Eye exam: Present: normal appearance - ENT ENT exam: Present: mucous membranes moist - Neck Neck exam: Present: normal inspection - Respiratory Respiratory exam: Present: normal lung sounds bilaterally. Absent: respiratory distress - Cardiovascular Cardiovascular Exam: Present: regular rate, normal rhythm. Absent: systolic murmur, diastolic murmur, rubs, gallop - GI/Abdominal GI/Abdominal exam: Present: soft, normal bowel sounds. Absent: distended, ten derness - Extremities Exam Extremities exam: Present: normal inspection - Back Exam Back exam: Present: normal inspection - Neurological Exam Neurological exam: Present: alert, oriented X3 - Psychiatric Psychiatric exam: Present: normal affect, normal mood - Skin Skin exam: Present: warm, dry, intact, normal color. Absent: rash ED Course Vital Signs 06/10/20 06/10/20 06/10/20 19:28 19:46 20:00 Temperature 98 F Pulse Rate 81 77 Respiratory 16 11 L Rate Blood Pressure 129/88 133/84 O2 Sat by Pulse 96 99 97 Oximetry 06/10/20 06/10/20 06/10/20 20:16 20:30 20:45 Temperature Pulse Rate 71 105 H 98 H Respiratory 12 15 18 Rate Blood Pressure 144/80 153/79 151/100 O2 Sat by Pulse 99 96 98 Oximetry 06/10/20 06/10/20 06/10/20 21:00 21:16 21:30 Temperature Pulse Rate 93 H 94 H 94 H Respiratory 18 19 16 Rate Blood Pressure 131/96 148/91 155/95 O2 Sat by Pulse 98 100 100 Oximetry 06/10/20 21:46 Temperature Pulse Rate 83 Respiratory 18 Rate Blood Pressure 148/89 O2 Sat by Pulse 95 Oximetry - Reevaluation(s) Reevaluation #1: Patient states her chest pain is better. Patient is currently on oxygen. Acacia richmond will be given Lasix. Patient states her nausea is better. I discussed all results with patient. I discussed plan of care with patient. Patient agrees with plan of care and admission. Patient to be admitted to the hospitalist service. 06/10/20 21:27 - Consultations Consultation #1: Hospitalist consulted for admission. Hospitalist to admit patient. Bridge orders placed. 06/10/20 21:27 JEANNIE score - Jeannie Score Age > 65: (1) Yes Aspirin use within the Past 7 Days: (1) Yes 3 or more CAD Risk Factors: (1) Yes 2 or more Angina events in past 24 hrs: (0) No Known CAD with more than 50% Stenosis: (0) No Elevated Cardiac Markers: (0) No ST Deviation Greater than 0.5mm: (0) No JEANNIE Score: 3 ED Medical Decision Making - Lab Data Result diagrams: 06/11/20 00:28 06/11/20 00:28 - EKG Data -: EKG Interpreted by Me EKG shows normal: axis, intervals, QRS complexes, ST-T waves Rate: normal - EKG Data Interpretation: other (Atrial fibrillation) - Radiology Data Radiology results: report reviewed, image reviewed interpreted by me: Chest x-ray: No pneumonia, no pneumothorax, ICD noted, no osseous findings, no acute findings CHEST 1 VIEW 06/10/2020 7:18 PM INDICATION / CLINICAL INFORMATION: MAIN. COMPARISON: 05/10/2020 FINDINGS: SUPPORT DEVICES: ICD unchanged. HEART / MEDIASTINUM: Stable. LUNGS / PLEURA: No significant pulmonary or pleural abnormality. No pneumothorax. ADDITIONAL FINDINGS: No significant additional findings. IMPRESSION: No acute abnormality. - Medical Decision Making Patient is a 70-year-old female that presents emergency room with complaints of chest pain shortness of breath. Patient had a chest x-ray done which was negative for acute finding. Patient had labs done which were negative and unremarkable except for elevated BNP at 4000+. Patient given Lasix IV in the ER. Patient placed on oxygen after initial exam. Patient given aspirin and Reglan. Patient EKG does not show a STEMI. Patient troponin is negative. Patient's heart score is high and at 6. Patient will require inpatient rule out. Patient admitted to the hospitalist service for further evaluation and treatment and rule out ACS. - Differential Diagnosis Shortness of breath, chest pain, CHF, ACS, A. fib Critical Care Time: Yes Critical care time in (mins) excluding proc time.: 35 Critical care attestation.: If time is entered above; I have spent that time in minutes in the direct care of this critically ill patient, excluding procedure time. Critical Care Time: 35 minutes ED Disposition Clinical Impression: Elevated brain natriuretic peptide (BNP) level Atrial fibrillation Qualifiers: Atrial fibrillation type: unspecified chronic Qualified Code(s): I48.20 - Chronic atrial fibrillation, unspecified Dyspnea Qualifiers: Dyspnea type: shortness of breath Qualified Code(s): R06.02 - Shortness of breath Chest pain Qualifiers: Chest pain type: unspecified Qualified Code(s): R07.9 - Chest pain, unspecified CHF exacerbation Qualifiers: Heart failure type: unspecified Qualified Code(s): I50.9 - Heart failure, unspecified Disposition: DC-09 OP ADMIT IP TO THIS HOSP Is pt being admited?: Yes Does the pt Need Aspirin: No Condition: Critical Time of Disposition: 21:25
[2020-06-10 20:22] LABS: Basophils % (Auto) 0.6 % (0.0-1.8); Eosinophils % (Auto) 0.6 % (0.0-4.3); Hematocrit 42.6 % (30.3-42.9); Hemoglobin 14.1 gm/dl (10.1-14.3); Lymphocytes # (Auto) 1.4 K/mm3 (1.2-5.4); Lymphocytes % (Auto) 23.1 % (13.4-35.0); Mean Corpuscular HGB Conc 33 % (30-34); Mean Corpuscular Volume 87 fl (79-97); Monocytes # (Auto) 0.6 K/mm3 (0.0-0.8); Monocytes % (Auto) 10.4 % (0.0-7.3); Platelet Count 207 K/mm3 (140-440); Red Blood Count 4.89 M/mm3 (3.65-5.03); Red Cell Distribution Width 16.4 % (13.2-15.2)
--- NOTE | 2020-06-10 20:35 | XRay Report ---
CHEST 1 VIEW 06/10/2020 7:18 PM INDICATION / CLINICAL INFORMATION: MAIN. COMPARISON: 05/10/2020 FINDINGS: SUPPORT DEVICES: ICD unchanged. HEART / MEDIASTINUM: Stable. LUNGS / PLEURA: No significant pulmonary or pleural abnormality. No pneumothorax. ADDITIONAL FINDINGS: No significant additional findings. IMPRESSION: No acute abnormality. Signer Name: Jones Whitney MD Signed: 06/10/2020 8:34 PM Workstation Name: [id number]
[2020-06-10 20:57] LABS: BUN/Creatinine Ratio 9; Blood Urea Nitrogen 10 mg/dL (7-17); Calcium 9.7 mg/dL (8.4-10.2); Hemolysis Index 41
[2020-06-10] MEDS ORDERED: FUROSEMIDE 40 MG/4 ML INJ IV ONE (21:26)
[2020-06-10] MEDS ORDERED: ASPIRIN 325 MG TAB PO ONE (21:28)
[2020-06-10] MEDS ORDERED: ACETAMINOPHEN 325 MG TAB PO PRN ×2 (22:19)
[2020-06-10] MEDS ORDERED: MAGNESIUM HYDROXIDE (MOM) ORAL LIQD UDC PO PRN (22:19)
[2020-06-10] MEDS ORDERED: NITROGLYCERIN 0.4 MG TAB SUBL SL PRN (22:19)
[2020-06-10] MEDS ORDERED: MORPHINE 4 MG/1 ML INJ IV PRN (22:19)
[2020-06-10] MEDS ORDERED: ONDANSETRON 4 MG/2 ML INJ IV PRN (22:19)
--- NOTE | 2020-06-10 22:31 | History and Physical Report ---
History of Present Illness Date of examination: 06/10/20 Date of admission: 06/10/20 21:29 Chief complaint: Chest Pain History of present illness: 70-year-old female with known history of hypertension, CHF with defibrillator, atrial fibrillation, history of CVA in the past presenting to the emergency room today complaining of chest pain. Denies any fever or chills, no nausea vomiting, no headache or dizziness. Work-up in the emergency room today so far has been negative. Patient has been admitted for work-up of her for chest pain Past History Past Medical History: CAD (with h/o NH), heart failure, hypertension, stroke, other (Breast ca.) Past Surgical History: Other (Rhinoplasty,Breast surgery,Partial thyroidectomy.) Social history: no significant social history Family history: no significant family history Medications and Allergies Allergies Allergy/AdvReac Type Severity Reaction Status Date / Time ondansetron [From Zofran] Allergy Rash Verified 04/28/20 04:09 Home Medications Medication Instructions Recorded Confirmed Last Taken Type Digoxin [Lanoxin] 0.125 mg PO DAILY #30 04/29/20 06/10/20 05/09/20 21:00 Rx Furosemide [Lasix TAB] 40 mg PO QDAY #30 04/29/20 06/10/20 05/09/20 21:00 Rx Spironolactone [Aldactone] 25 mg PO QDAY #30 tablet 04/29/20 06/10/20 05/10/20 09:00 Rx carvediloL [Coreg] 25 mg PO BID #60 04/29/20 06/10/20 05/10/20 09:00 Rx Apixaban [Eliquis] 5 mg PO Q12HR #60 tablet 05/12/20 06/10/20 Unknown Rx AtorvaSTATin [Lipitor] 40 mg PO QHS #30 tablet 05/12/20 06/10/20 Unknown Rx Active Meds: Active Medications Acetaminophen (Tylenol) 650 mg PO Q4H PRN PRN Reason: Pain MILD(1-3)/Fever >100.5/NAVAS Ondansetron HCl (Zofran) 4 mg IV Q8H PRN PRN Reason: Nausea And Vomiting Sodium Chloride (Sodium Chloride Flush Syringe 10 Ml) 10 ml IV BID SHARON Sodium Chloride (Sodium Chloride Flush Syringe 10 Ml) 10 ml IV PRN PRN PRN Reason: LINE FLUSH Review of Systems Constitutional: no fever, no chills Ears, nose, mouth and throat: no nasal congestion, no sore throat Cardiovascular: chest pain, no palpitations Respiratory: shortness of breath, dyspnea on exertion, no cough Gastrointestinal: no abdominal pain, no nausea, no vomiting, no diarrhea Genitourinary Female: no dysuria, no hematuria Musculoskeletal: no neck pain, no low back pain Integumentary: no rash, no pruritis Neurological: no headaches, no confusion Exam - Constitutional Vitals: Temp Pulse Resp BP Pulse Ox 98 F 81 16 129/88 96 06/10/20 19:28 06/10/20 19:28 06/10/20 19:28 06/10/20 19:28 06/10/20 19:28 General appearance: Present: no acute distress, mild distress, well-nourished - EENT Eyes: Present: PERRL, EOM intact. Absent: scleral icterus ENT: hearing intact, clear oral mucosa, dentition normal - Neck Neck: Present: supple, normal ROM - Respiratory Respiratory effort: normal Respiratory: bilateral: CTA - Cardiovascular Rhythm: irregularly irregular Heart Sounds: Present: S1 & S2. Absent: gallop, systolic murmur, diastolic murmur, rub - Extremities Extremities: no ischemia, pulses intact, pulses symmetrical, No edema, normal temperature, normal color, Full ROM Peripheral Pulses: within normal limits - Abdominal General gastrointestinal: Present: soft, non-tender, non-distended, normal bowel sounds. Absent: mass - Integumentary Integumentary: Present: clear, warm, dry. Absent: rash - Musculoskeletal Musculoskeletal: strength equal bilaterally - Psychiatric Psychiatric: appropriate mood/affect, intact judgment & insight, memory intact, cooperative - Neurologic Neurologic: CNII-XII intact, no focal deficits, moves all extremities HEART Score - HEART Score EKG: Non-specific Age: > 65 Risk factors: > 3 risk factors or hx of atherosclerotic disease Troponin: Troponin T < 0.010 ng/mL (0.00-0.029) 06/10/20 19:47 Troponin: < normal limit Results - Labs CBC & Chem 7: 06/11/20 00:28 06/11/20 00:28 Labs: Abnormal lab results 06/10/20 06/10/20 06/10/20 Range/Units 19:47 19:47 20:19 RDW 16.4 H (13.2-15.2) % [place] % (Auto) 10.4 H (0.0-7.3) % Sodium 136 L (137-145) mmol/L Carbon Dioxide 21 L (22-30) mmol/L Glucose 125 H (65-100) mg/dL NT-Pro-B Natriuret Pep 5574 H (0-900) pg/mL Assessment and Plan - Patient Problems (1) Chest pain Current Visit: Yes Status: Acute Qualifiers: Chest pain type: unspecified Qualified Code(s): R07.9 - Chest pain, uns pecified Plan to address problem: Check serial cardiac enzymes. Patient placed on daily aspirin, sublingual nitroglycerin and IV morphine as needed for chest pain. We will place consult to cardiology for evaluation. (2) Atrial fibrillation Current Visit: Yes Status: Acute Qualifiers: Atrial fibrillation type: unspecified chronic Qualified Code(s): I48.20 - Chronic atrial fibrillation, unspecified; I48.2 - Chronic atrial fibrillation Plan to address problem: Rate is currently controlled. Patient is on Eliquis for anticoagulation. (3) Dyspnea Current Visit: Yes Status: Acute Qualifiers: Dyspnea type: shortness of breath Qualified Code(s): R06.02 - Shortness of breath; R06.00 - Dyspnea, unspecified; R06.01 - Orthopnea Plan to address problem: Possibly secondary to underlying history of CHF. Patient currently on diuretics. Will schedule for echocardiogram. (4) DVT prophylaxis Current Visit: No Status: Acute Plan to address problem: Patient currently on anticoagulation. (5) Full code status Current Visit: No Status: Acute
[2020-06-11 01:56] LABS: Basophils % (Auto) 0.5 % (0.0-1.8); Eosinophils % (Auto) 0.7 % (0.0-4.3); Hematocrit 43.9 % (30.3-42.9); Hemoglobin 14.4 gm/dl (10.1-14.3); Lymphocytes # (Auto) 2.2 K/mm3 (1.2-5.4); Lymphocytes % (Auto) 32.5 % (13.4-35.0); Mean Corpuscular HGB Conc 33 % (30-34); Mean Corpuscular Volume 86 fl (79-97); Monocytes # (Auto) 0.8 K/mm3 (0.0-0.8); Monocytes % (Auto) 11.7 % (0.0-7.3); Platelet Count 183 K/mm3 (140-440); Red Blood Count 5.09 M/mm3 (3.65-5.03); Red Cell Distribution Width 16.4 % (13.2-15.2)
[2020-06-11 02:14] LABS: Calcium 9.9 mg/dL (8.4-10.2)
[2020-06-11 02:22] LABS: Chol/HDL Ratio 1.71 %
[2020-06-11 05:35] LABS: Basophils % (Auto) 0.8 % (0.0-1.8); Eosinophils # (Auto) 0.1 K/mm3 (0.0-0.4); Eosinophils % (Auto) 1.1 % (0.0-4.3); Hematocrit 40.8 % (30.3-42.9); Hemoglobin 13.5 gm/dl (10.1-14.3); Lymphocytes % (Auto) 32.6 % (13.4-35.0); Mean Corpuscular HGB Conc 33 % (30-34); Mean Corpuscular Volume 86 fl (79-97); Monocytes # (Auto) 0.8 K/mm3 (0.0-0.8); Monocytes % (Auto) 12.5 % (0.0-7.3); Platelet Count 169 K/mm3 (140-440); Red Blood Count 4.76 M/mm3 (3.65-5.03); Red Cell Distribution Width 16.5 % (13.2-15.2)
[2020-06-11 05:42] LABS: INR 1.23 (0.87-1.13)
[2020-06-11 05:44] LABS: Calcium 9.6 mg/dL (8.4-10.2)
[2020-06-11] MEDS ORDERED: REGADENOSON 0.4 MG/5 ML INJ IV ONE (06:55)
[2020-06-11] MEDS ORDERED: METOCLOPRAMIDE 10 MG/2 ML INJ IV PRN (08:00)
[2020-06-11] MEDS ORDERED: SPIRONOLACTONE 25 MG TAB PO SCH (10:00)
[2020-06-11] MEDS ORDERED: carvediloL 25 MG TAB PO SCH (10:00)
[2020-06-11] MEDS ORDERED: APIXABAN 5 MG TAB PO SCH (10:00)
[2020-06-11] MEDS ORDERED: FUROSEMIDE 40 MG TAB PO SCH (10:00)
[2020-06-11] MEDS ORDERED: ASPIRIN EC 325 MG TAB PO SCH (10:00)
--- NOTE | 2020-06-11 10:41 | Consultation ---
History of Present Illness Consult date: 06/11/20 Consult reason: chest pain History of present illness: This is a 70-year old F who is followed by [facility] and has a longstanding history of nonischemic cardiomyopathy and has a cardiac defibrillator in place.. She presents to this hospital and admitted with chest pain following multiple episodes of vomiting. She reports lost of appetite, intermittent nausea and vomiting since discharged from this hospital a few weeks ago. Of note, she was hospitalized at this hospital a month ago with transient TIA and recurrent atrial fibrillation. An echocardiogram showed a left ventricular systolic ejection fraction unchanged at 20 to 25%. Bubble study was negative. On discharge she was placed on statin therapy, low dose aspirin and oral antic oagulation as recommended by neurology. On review of outpatient records, there is documentation of intolerant of statins, causes nausea. Patient denies fever, denies diarrhea and denies abdominal pain. Denies SOB, denies palpitations and there is no lower extremity edema. Chest x-ray is negative. 12 lead EKG shows an atrial fibrillation with well-controlled ventricular response. Past History Past Medical History: heart failure, hypertension, stroke (TIA), other (Breast ca.) Past Surgical History: Other (Rhinoplasty,Breast surgery,Partial thyroidectomy, AICD.) Social history: no significant social history Family history: no significant family history Medications and Allergies Allergies Allergy/AdvReac Type Severity Reaction Status Date / Time ondansetron [From Zofran] Allergy Rash Verified 04/28/20 04:09 Home Medications Medication Instructions Recorded Confirmed Last Taken Type Digoxin [Lanoxin] 0.125 mg PO DAILY #30 04/29/20 06/10/20 05/09/20 21:00 Rx Furosemide [Lasix TAB] 40 mg PO QDAY #30 04/29/20 06/10/20 05/09/20 21:00 Rx Spironolactone [Aldactone] 25 mg PO QDAY #30 tablet 04/29/20 06/10/20 05/10/20 09:00 Rx carvediloL [Coreg] 25 mg PO BID #60 04/29/20 06/10/20 05/10/20 09:00 Rx Apixaban [Eliquis] 5 mg PO Q12HR #60 tablet 05/12/20 06/10/20 Unknown Rx AtorvaSTATin [Lipitor] 40 mg PO QHS #30 tablet 05/12/20 06/10/20 Unknown Rx Active Meds: Active Medications Acetaminophen (Tylenol) 650 mg PO Q4H PRN PRN Reason: Pain MILD(1-3)/Fever >100.5/NAVAS Apixaban (Eliquis) 5 mg PO Q12HR [facility]; Protocol Last Admin: 06/11/20 10:22 Dose: 5 mg Documented by: Atorvastatin Calcium (Lipitor) 40 mg PO QHS [facility] Carvedilol (Coreg) 25 mg PO BID [facility] Last Admin: 06/11/20 10:22 Dose: 25 mg Documented by: Digoxin (Lanoxin) 0.125 mg PO DAILY@1700 [facility] Furosemide (Lasix) 40 mg PO QDAY [facility] Last Admin: 06/11/20 10:21 Dose: 40 mg Documented by: Magnesium Hydroxide (Milk Of Magnesia) 30 ml PO Q4H PRN PRN Reason: Constipation Metoclopramide HCl (Reglan) 10 mg IV Q6H PRN PRN Reason: Nausea And Vomiting Last Admin: 06/11/20 08:08 Dose: 10 mg Documented by: Sodium Chloride (Sodium Chloride Flush Syringe 10 Ml) 10 ml IV BID [facility] Last Admin: 06/11/20 10:22 Dose: 10 ml Documented by: Sodium Chloride (Sodium Chloride Flush Syringe 10 Ml) 10 ml IV PRN PRN PRN Reason: LINE FLUSH Spironolactone (Aldactone) 25 mg PO QDAY [facility] Last Admin: 06/11/20 10:21 Dose: 25 mg Documented by: Physical Examination Vital Signs Temp Pulse Resp BP Pulse Ox 98 F 81 16 129/88 96 06/10/20 19:28 06/10/20 19:28 06/10/20 19:28 06/10/20 19:28 06/10/20 19:28 General appearance: no acute distress HEENT: Positive: PERRL Neck: Positive: trachea midline Cardiac: Positive: irregularly irregular Lungs: Positive: Decreased Breath Sounds Neuro: Positive: Grossly Intact Extremities: Absent: edema Results 06/11/20 05:12 06/11/20 05:12 Coagulation 06/11/20 Range/Units 05:12 PT 15.7 H (12.2-14.9) Sec. INR 1.23 H (0.87-1.13) Lipids 06/11/20 Range/Units 00:28 Triglycerides 69 (2-149) mg/dL Cholesterol 91 (50-199) mg/dL HDL Cholesterol 53 (40-59) mg/dL Cholesterol/HDL Ratio 1.71 % CBC 06/10/20 06/11/20 06/11/20 Range/Units 19:47 00:28 05:12 WBC 6.1 6.7 6.2 (4.5-11.0) K/mm3 RBC 4.89 5.09 H 4.76 (3.65-5.03) M/mm3 Hgb 14.1 14.4 H 13.5 (10.1-14.3) gm/dl Hct 42.6 43.9 H 40.8 (30.3-42.9) % Plt Count 207 183 169 (140-440) K/mm3 Lymph # (Auto) 1.4 2.2 2.0 (1.2-5.4) K/mm3 [place] # (Auto) 0.6 0.8 0.8 (0.0-0.8) K/mm3 Eos # (Auto) 0.0 0.0 0.1 (0.0-0.4) K/mm3 Baso # (Auto) 0.0 0.0 0.0 (0.0-0.1) K/mm3 Comprehensive Metabolic Panel 06/10/20 06/11/20 06/11/20 Range/Units 19:47 00:28 05:12 Sodium 136 L 141 141 (137-145) mmol/L Potassium 4.9 3.9 D 4.0 (3.6-5.0) mmol/L Chloride 102.7 101.0 102.9 (98-107) mmol/L Carbon Dioxide 21 L 26 26 (22-30) mmol/L BUN 10 10 10 (7-17) mg/dL Creatinine 1.1 1.2 1.1 (0.6-1.2) mg/dL Glucose 125 H 84 97 (65-100) mg/dL Calcium 9.7 9.9 9.6 (8.4-10.2) mg/dL Assessment and Plan Chest pain, atypical following multiple episodes of vomiting Atrial fibrillation, persistent rate control on Eliquis for anticoagulation N/V with generalized weakness Recent history of TIA Hx of Non-ischemic cardiomyopathy LVEF 20-25% by echo 04/2020. Presence of AICD ([employer]) Hx of Breast Cancer On review of outpatient records, there is documentation of statin intolerance, causes nausea. Will therefore discontinue atorvastatin. Obtain an abdominal ultrasound for nausea and vomiting. Continue medical therapy for atrial fibrillation and nonischemic cardiomyopathy.
[2020-06-11] MEDS ORDERED: FLU VACC QUAD 2020-2021 (6 months +)/PF 60 0.5 ML SYRINGE IM ONE (12:00)
[2020-06-11 12:37] VITALS: BP 113/62
--- NOTE | 2020-06-11 14:17 | Discharge Summary ---
Providers - Providers Date of Admission: 06/10/20 21:29 Date of discharge: 06/11/20 Attending physician: GEOVANY CONTRERAS Primary care physician: EXTRACT WRINGER Hospitalization Condition: Critical Hospital course: Discharge diagnosis: Chest pain, atypical, likely GERD Nausea/vomiting, likely drug side effect from lipitor, resolved with reglan, lipitor on hold Atrial fibrillation, persistent, rate control, on Eliquis for anticoagulation Recent history of TIA Hx of Non-ischemic cardiomyopathy, LVEF 20-25% by echo 04/2020. Presence of AICD ([employer]tr[employer]) Hx of Breast Cancer, in remission Disposition: DC-01 TO HOME OR SELFCARE Time spent for discharge: 34 minutes Core Measure Documentation - Palliative Care Palliative Care/ Comfort Measures: Not Applicable - Core Measures Any of the following diagnoses?: none Exam - Constitutional Vitals: Temp Pulse Resp BP Pulse Ox 98.0 F 54 L 16 113/62 100 06/11/20 12:35 06/11/20 12:35 06/11/20 12:35 06/11/20 12:35 06/11/20 12:35 Plan Activity: advance as tolerated Weight Bearing Status: Weight Bear as Tolerated Diet: low fat, low salt Follow up with: PRIMARY MD KARON [Primary Care Provider] - 3-5 Days SIL DELANEY MD [Staff Physician] - 7 Days Prescriptions: Metoclopramide [Reglan] 10 mg PO TID PRN #30 tab PRN Reason: Nausea And Vomiting
[2020-06-11] MEDS ORDERED: DIGOXIN 0.125 MG TAB PO SCH (17:00)
== END 2020-06-11 16:51 | disposition home or self-care (01) ==
LOC: ED 18:42 → 4A 21:29
PROVIDERS: ADMIT Internal Medicine Geriatric Medicine; ATTEND Internal Medicine
DX: R07.89 Other chest pain (principal); I11.0 Hypertensive heart disease with heart failure; I50.9 Heart failure, unspecified; I48.91 Unspecified atrial fibrillation; R06.00 Dyspnea, unspecified; I25.10 Atherosclerotic heart disease of native coronary artery without angina pectoris; I25.2 Old myocardial infarction; I42.8 Other cardiomyopathies; R74.8 Abnormal levels of other serum enzymes; Z98.890 Other specified postprocedural states; Z86.73 Personal history of transient ischemic attack (TIA), and cerebral infarction without residual deficits; Z90.49 Acquired absence of other specified parts of digestive tract; Z85.3 Personal history of malignant neoplasm of breast; Z95.810 Presence of automatic (implantable) cardiac defibrillator
CPT/HCPCS: 36415; 71045; 80048; 80061; 83880; 84484; 85025; 85610; 93005; 96374; 96375; 96376; 99291; G0378; J1940; J2765

== ENCOUNTER 2021-02-09 04:56 | Inpatient (IN) | payer MEDICARE ==
[2021-02-09] MEDS ORDERED: dilTIAZem 25 MG/5 ML INJ IV ONE ×3 (05:20→07:42)
[2021-02-09] MEDS ORDERED: METOCLOPRAMIDE 10 MG/2 ML INJ IV ONE (05:20)
--- NOTE | 2021-02-09 05:32 | Emergency Department Report ---
<HEATH COLIN PengAye - Last Filed: 02/09/21 05:23> ED Shortness of Breath HPI - General Stated Complaint: GENERAL ILLNESS - History of Present Illness Initial Comments: Patient is a 70-year-old female with past medical history significant for A. fib, CHF, hypertension, defibrillator. She presents to the emergency department today with complaints of shortness of breath diarrhea as well as nausea vomiting. Patient reports that her symptoms have been present for 1 week and worsened in the past 3 days. She denies any sick contacts and denies any contact with anyone known to have tested positive for COVID-19. She has not yet received any vaccinations. She denies any fever but does note that she has had lack of appetite with her nausea and vomiting. She states that she only has abdominal pain when she has the diarrhea and is currently not in any pain. Patient reports that she noticed her heart rate was elevated yesterday around 5 AM. - Related Data Previous Rx's Medication Instructions Recorded Last Taken Type Digoxin [Lanoxin] 0.125 mg PO DAILY #30 04/29/20 05/09/20 21:00 Rx Furosemide [Lasix TAB] 40 mg PO QDAY #30 04/29/20 05/09/20 21:00 Rx Spironolactone [Aldactone] 25 mg PO QDAY #30 tablet 04/29/20 05/10/20 09:00 Rx carvediloL [Coreg] 25 mg PO BID #60 04/29/20 05/10/20 09:00 Rx Apixaban [Eliquis] 5 mg PO Q12HR #60 tablet 05/12/20 Unknown Rx Metoclopramide [Reglan TAB] 10 mg PO TID PRN #30 tab 06/11/20 Unknown Rx Allergies Allergy/AdvReac Type Severity Reaction Status Date / Time ondansetron [From Zofran] Allergy Rash Verified 04/28/20 04:09 [id number] Reductase AdvReac Nausea Verified 06/11/20 12:33 Inhibitor ED Review of Systems Constitutional: denies: chills, fever Eyes: denies: eye discharge ENT: denies: dental pain Respiratory: shortness of breath. denies: cough Cardiovascular: denies: chest pain, edema Endocrine: no symptoms reported Gastrointestinal: abdominal pain, nausea, vomiting Genitourinary: denies: dysuria, frequency Musculoskeletal: denies: back pain Skin: denies: rash Neurological: denies: headache, weakness Psychiatric: denies: anxiety, depression Hematological/Lymphatic: denies: easy bleeding ED Past Medical Hx - Past Medical History Hx Hypertension: Yes Hx CVA: Yes Hx Congestive Heart Failure: Yes (Defibrilator) - Surgical History Hx Breast Surgery: Yes Additional Surgical History: Partial Thyroid removed, Rhinoplasty - Social History Smoking Status: Never Smoker Substance Use Type: None - Medications Home Medications: Home Medications Medication Instructions Recorded Confirmed Last Taken Type Digoxin [Lanoxin] 0.125 mg PO DAILY #30 04/29/20 06/10/20 05/09/20 21:00 Rx Furosemide [Lasix TAB] 40 mg PO QDAY #30 04/29/20 06/10/20 05/09/20 21:00 Rx Spironolactone [Aldactone] 25 mg PO QDAY #30 tablet 04/29/20 06/10/20 05/10/20 09:00 Rx carvediloL [Coreg] 25 mg PO BID #60 04/29/20 06/10/20 05/10/20 09:00 Rx Apixaban [Eliquis] 5 mg PO Q12HR #60 tablet 05/12/20 06/10/20 Unknown Rx Metoclopramide [Reglan TAB] 10 mg PO TID PRN #30 tab 06/11/20 Unknown Rx ED Physical Exam - General General appearance: alert, in no apparent distress - Head Head exam: Present: atraumatic, normocephalic - Eye Eye exam: Present: normal appearance - ENT ENT exam: Present: normal exam - Respiratory Respiratory exam: Present: normal lung sounds bilaterally. Absent: respiratory distress, wheezes, rales, rhonchi - Cardiovascular Cardiovascular Exam: Present: irregular rhythm - GI/Abdominal GI/Abdominal exam: Present: soft. Absent: distended, tenderness - Rectal Rectal exam: Present: deferred - Extremities Exam Extremities exam: Present: normal inspection. Absent: pedal edema - Back Exam Back exam: Present: normal inspection - Neurological Exam Neurological exam: Present: alert, oriented X3 - Psychiatric Psychiatric exam: Present: normal affect, normal mood - Skin Skin exam: Present: warm, dry, intact, normal color. Absent: rash ED Medical Decision Making - EKG Data -: EKG Interpreted by Me No standard instances Rhythm: A.Fib - EKG Data Interpretation: nonspecific ST-T wave radha - Medical Decision Making Patient is a 70-year-old female who presents to the emergency department with complaints of shortness of breath, diarrhea, nausea and vomiting. She states that she does not have exposure to COVID-19 however it is included in the di fferential as well as she appears to be in A. fib with RVR so ACS is considered including possible viral infection. I have placed orders for possible sepsis given patient's elevated heart rate and complaint of shortness of breath diarrhea and nausea vomiting although patient denies any fevers at this time. At this time I am awaiting patient's chest x-ray and labs to determine if she requires IV fluids given her history of CHF. ED Disposition Clinical Impression: Afib, CHF (congestive heart failure) Disposition: OP ADMIT IP TO THIS HOSP Condition: Fair <PAM CORDOVA - Last Filed: 02/09/21 10:27> ED Review of Systems ROS: Stated complaint: GENERAL ILLNESS Other details as noted in HPI ED Course Vital Signs 02/09/21 02/09/21 02/09/21 05:05 05:15 05:31 Temperature Pulse Rate 103 H 160 H 170 H Respiratory 15 23 21 Rate Blood Pressure 118/67 118/67 O2 Sat by Pulse 98 99 97 Oximetry 02/09/21 02/09/21 02/09/21 05:35 05:45 05:49 Temperature 99.5 F Pulse Rate 158 H 134 H Respiratory 19 Rate Blood Pressure 118/67 118/67 O2 Sat by Pulse 98 Oximetry 02/09/21 02/09/21 02/09/21 06:01 06:02 06:15 Temperature Pulse Rate 94 H 143 H Respiratory 17 Rate Blood Pressure 118/67 118/67 O2 Sat by Pulse 98 95 Oximetry 02/09/21 02/09/21 02/09/21 06:31 06:45 07:01 Temperature Pulse Rate Respiratory Rate Blood Pressure 118/67 118/67 118/67 O2 Sat by Pulse 95 98 96 Oximetry 02/09/21 02/09/21 02/09/21 07:15 07:31 07:45 Temperature Pulse Rate 132 H Respiratory 24 Rate Blood Pressure 118/67 118/67 118/67 O2 Sat by Pulse 93 97 99 Oximetry 02/09/21 02/09/21 02/09/21 07:56 08:01 08:03 Temperature Pulse Rate 143 H 74 Respiratory 10 L 30 H Rate Blood Pressure 114/68 114/68 O2 Sat by Pulse 98 Oximetry 02/09/21 02/09/21 02/09/21 08:15 08:31 08:45 Temperature Pulse Rate 83 116 H 110 H Respiratory 21 19 24 Rate Blood Pressure 114/68 115/66 115/66 O2 Sat by Pulse 97 97 95 Oximetry ED Medical Decision Making - Lab Data Result diagrams: 02/09/21 05:49 02/09/21 05:49 - Medical Decision Making I took over the care of the patient at approximately 6 AM. Patient received 2 boluses of Cardizem to no avail. Patient was placed on a Cardizem drip. Patient was also given IV Lasix for congestive heart failure. Critical Care Time: Yes Critical care time in (mins) excluding proc time.: 35 Critical care attestation.: If time is entered above; I have spent that time in minutes in the direct care of this critically ill patient, excluding procedure time. ED Disposition Is pt being admited?: Yes Does the pt Need Aspirin: Yes
--- NOTE | 2021-02-09 05:57 | XRay Report ---
CHEST 1 VIEW 02/09/2021 4:45 AM INDICATION / CLINICAL INFORMATION: dyspnea. COMPARISON: 06/10/2020 FINDINGS: SUPPORT DEVICES: None. HEART / MEDIASTINUM: No significant abnormality. LUNGS / PLEURA: There is mild increase in interstitial markings characteristic of mild edema. No pneu mothorax. ADDITIONAL FINDINGS: No significant additional findings. IMPRESSION: 1. Mild increase in interstitial markings characteristic of mild edema. Signer Name: Everardo Lange MD Signed: 02/09/2021 5:53 AM Workstation Name: [id number]
[2021-02-09 06:03] LABS: Basophils # (Auto) 0.1 K/mm3 (0.0-0.1); Basophils % (Auto) 0.7 % (0.0-1.8); Eosinophils % (Auto) 0.4 % (0.0-4.3); Hematocrit 38.2 % (30.3-42.9); Hemoglobin 13.3 gm/dl (10.1-14.3); Lymphocytes # (Auto) 0.7 K/mm3 (1.2-5.4); Lymphocytes % (Auto) 9.3 % (13.4-35.0); Mean Corpuscular HGB Conc 35 % (30-34); Mean Corpuscular Volume 91 fl (79-97); Monocytes # (Auto) 0.8 K/mm3 (0.0-0.8); Monocytes % (Auto) 10.8 % (0.0-7.3); Platelet Count 138 K/mm3 (140-440); Red Blood Count 4.22 M/mm3 (3.65-5.03); Red Cell Distribution Width 14.3 % (13.2-15.2)
[2021-02-09 06:28] LABS: Albumin 3.8 g/dL (3.9-5); Calcium 9.1 mg/dL (8.4-10.2)
--- NOTE | 2021-02-09 09:35 | Cat Scan Report ---
CTA CHEST WITH CONTRAST INDICATION : CP/SOB/elevated ddimer OMNI 350 100ML . TECHNIQUE: Axial imaging performed through the chest, with contrast bolus timing set to maximize opa cification of the pulmonary arteries. Sagittal and coronal reformatted images. 3-plane MIP reformatte d images were obtained. All CT scans at this location are performed using CT dose reduction for ALAR A by means of automated exposure control. 100 mL of intravenous contrast administered. COMPARISON: 04/28/2020 FINDINGS: Bolus: Contrast bolus timing is adequate. PTE: No filling defect is present to suggest PTE. Mediastinum: Stable mild cardiomegaly. 2-lead pacemaker device terminating in the right ventricle is unchanged. The thoracic aorta is unremarkable. No pathologic mediastinal adenopathy. Lungs: Small layering bilateral pleural effusions are identified, right greater than left. The lungs are clear otherwise. No suspicious pulmonary lesion or pneumothorax. Bones: Degenerative changes in the spine with nothing acute. Upper abdomen: Limited images of the upper abdomen suggests bilateral renal cysts although they are incompletely imaged. IMPRESSION: No evidence for pulmonary embolus. Findings consistent with mild CHF. Signer Name: Calos Vernon Jr, MD Signed: 02/09/2021 9:31 AM Workstation Name: [id number]
[2021-02-09] MEDS ORDERED: FUROSEMIDE 40 MG/4 ML INJ IV ONE (09:59)
[2021-02-09] MEDS ORDERED: dilTIAZem/D5W 100 MG/100 ML BAG IV SCH (10:00)
[2021-02-09] MEDS ORDERED: ASPIRIN 81 MG TAB CHEW PO ONE (10:28)
[2021-02-09] MEDS ORDERED: METOCLOPRAMIDE 10 MG TAB PO PRN (11:39)
--- NOTE | 2021-02-09 11:48 | History and Physical Report ---
History of Present Illness Date of examination: 02/09/21 Date of admission: 02/09/21 10:28 Chief complaint: Shortness of breath, nausea, vomiting and diarrhea History of present illness: Patient is a 70-year-old female with history of dilated nonischemic cardiomyopat hy, atrial fibrillation, chronic systolic left ventricular heart failure with primary cardiac defibrillator in situ last year initially thought to be cardioembolic event and since then has been on Eliquis, she presents to the hospital today with complaint of shortness of breath as well as nausea and vomiting which started about a week ago the latter nausea vomiting resolved but returned 3 days later with associated diarrhea. She denies any fever reported lack of appetite but no loss of taste or sense of smell. The diarrhea she describes as to loose bowels. She reports that yesterday she noted that her heart rate was significantly high of admission several weeks ago her physician discontinued digoxin and spironolactone due to "toxin". She states this was not by her primary care physician but not discussed with her dye penetrant testing technician. On arrival to the ER she was noted to have a heart rate in the 160s. She was given several doses of diltiazem and then started on that diltiazem drip. While she reports shortness of breath and this was confirmed by the nurse in the ER at bedside she denied and does not show any lower extremity edema or crackles on examination. Chest x-ray done in the ER showed mild edema with evidence of mild congestive heart failure. She otherwise have elevated liver function test and bilirubin and is not on amiodarone or statin per the patient and per her mother. Denies any abdominal pain. Last May there was a recommendation to have GI evaluation this has not been done. Will be requested to admit the patient for possible GERD versus congestive heart failure versus sepsis and also rule out for Covid. She denied receiving Covid vaccine Past History Past Medical History: atrial fib, CAD, hypertension, hyperlipidemia, stroke (TIA) Social history: no significant social history Family history: CAD Medications and Allergies Allergies Allergy/AdvReac Type Severity Reaction Status Date / Time ondansetron [From Zofran] Allergy Rash Verified 04/28/20 04:09 Pxfdrfk-Buj-Jky Reductase AdvReac Nausea Verified 06/11/20 12:33 Inhibitor Home Medications Medication Instructions Recorded Confirmed Last Taken Type Digoxin [Lanoxin] 0.125 mg PO DAILY #30 04/29/20 06/10/20 05/09/20 21:00 Rx Furosemide [Lasix TAB] 40 mg PO QDAY #30 04/29/20 06/10/20 05/09/20 21:00 Rx Spironolactone [Aldactone] 25 mg PO QDAY #30 tablet 04/29/20 06/10/20 05/10/20 09:00 Rx carvediloL [Coreg] 25 mg PO BID #60 04/29/20 06/10/20 05/10/20 09:00 Rx Apixaban [Eliquis] 5 mg PO Q12HR #60 tablet 05/12/20 06/10/20 Unknown Rx Metoclopramide [Reglan TAB] 10 mg PO TID PRN #30 tab 06/11/20 Unknown Rx Active Meds: Active Medications Acetaminophen (Acetaminophen 325 Mg Tab) 650 mg PO Q4H PRN PRN Reason: Pain MILD(1-3)/Fever >100.5/NAVAS Albuterol (Albuterol 2.5 Mg/3 Ml Nebu) 2.5 mg IH Q4HRT PRN PRN Reason: Shortness Of Breath Carvedilol (Carvedilol 25 Mg Tab) 25 mg PO BID SHARON Digoxin (Digoxin 0.125 Mg Tab) 0.125 mg PO DAILY SHARON Furosemide (Furosemide 40 Mg/4 Ml Inj) 40 mg IV QDAY SHARON Diltiazem HCl (Cardizem/D5w 100mg/100ml) 100 mg in 100 mls @ 5 mls/hr IV TITR SHARON; Protocol Last Admin: 02/09/21 11:21 Dose: 5 mg/hr, 5 mls/hr Documented by: Magnesium Hydroxide (Magnesium Hydroxide (Mom) Oral Liqd Udc) 30 ml PO Q4H PRN PRN Reason: Constipation Metoclopramide HCl (Metoclopramide 10 Mg/2 Ml Inj) 10 mg IV ACHS SHARON Miscellaneous Medication (Apixaban) 5 mg PO Q12HR SHARON Morphine Sulfate (Morphine 2 Mg/1 Ml Inj) 2 mg IV Q4H PRN PRN Reason: Pain, Moderate (4-6) Naloxone HCl (Naloxone 0.4 Mg/1 Ml Inj) 0.1 mg IV Q2MIN PRN PRN Reason: Res Rate </= 8 or 02 SAT < 92% Pantoprazole Sodium (Pantoprazole 40 Mg Inj) 40 mg IV QDAY [facility] Senna (Sennosides 8.6 Mg Tab) 8.6 mg PO Q12HR [facility] Sodium Chloride (Sodium Chloride 0.9% 10 Ml Flush Syringe) 10 ml IV BID [facility] Sodium Chloride (Sodium Chloride 0.9% 10 Ml Flush Syringe) 10 ml IV PRN PRN PRN Reason: LINE FLUSH Spironolactone (Spironolactone 25 Mg Tab) 25 mg PO QDAY [facility] Review of Systems All systems: negative Constitutional: fatigue, lethargy Cardiovascular: shortness of breath, dyspnea on exertion Respiratory: shortness of breath, dyspnea on exertion, no cough, no cough with sputum, no hemoptysis Gastrointestinal: nausea, vomiting, diarrhea, no abdominal pain, no constipation, no change in bowel habits, no BRBPR, no melena, no hematochezia, no loss of appetite Rectal: no pain, no incontinence Musculoskeletal: no neck stiffness, no neck pain Integumentary: no redness, no sores, no wounds, no jaundice, no bullae, no lesions, no depigmentation, no dryness, no striae, no foot/leg ulcers Neurological: no transient paralysis, no weakness, no numbness, no syncope, no tremors, no aphasia, no change in mentation, no memory loss, no sensory deficit, no loss of vision Psychiatric: no memory loss, no insomnia, no change in appetite, no suicidal ideation, no anxiety attacks, no irritability, no mood swings Endocrine: no heat intolerance, no excessive thirst, no polyuria, no nocturia, no palpatations, no high blood sugars Exam - Physical Exam Narrative exam: VITAL SIGNS: Reviewed. GENERAL: The patient appears normally developed, Vital signs as documented. HEAD: No signs of head trauma. EYES: Pupils are equal. Extraocular motions intact. EARS: Hearing grossly intact. MOUTH: Oropharynx is normal. NECK: No adenopathy, no JVD. CHEST: Chest with clear breath sounds bilaterally. No wheezes, rales, or rhonchi. CARDIAC: Irregularly irregular tachy. S1 and S2, without murmurs, gallops, or rubs. VASCULAR: No Edema. Peripheral pulses normal and equal in all extremities. ABDOMEN: Soft, non tender and non distended. No rebound or guarding, and no masses palpated. Bowel Sounds normal. MUSCULOSKELETAL: Good range of motion of all major joints. Extremities without clubbing, cyanosis or edema. NEUROLOGIC EXAM: Alert and oriented x 3 No focal sensory or strength deficits. Speech normal. Follows commands. PSYCHIATRIC: Mood normal. SKIN: detail exam as documented in skin assessment - Constitutional Vitals: Temp Pulse Resp BP Pulse Ox 99.5 F 133 H 23 117/74 96 02/09/21 05:35 02/09/21 11:21 02/09/21 11:01 02/09/21 11:21 02/09/21 11:01 HEART Score - HEART Score Troponin: Troponin T < 0.010 ng/mL (0.00-0.029) 02/09/21 05:49 Results - Labs CBC & Chem 7: 02/09/21 05:49 02/09/21 05:49 Labs: Laboratory Last Values WBC 7.7 K/mm3 (4.5-11.0) 02/09/21 05:49 RBC 4.22 M/mm3 (3.65-5.03) 02/09/21 05:49 Hgb 13.3 gm/dl (10.1-14.3) 02/09/21 05:49 Hct 38.2 % (30.3-42.9) 02/09/21 05:49 MCV 91 fl (79-97) 02/09/21 05:49 MCH 32 pg (28-32) 02/09/21 05:49 MCHC 35 % (30-34) H 02/09/21 05:49 RDW 14.3 % (13.2-15.2) 02/09/21 05:49 Plt Count 138 K/mm3 (140-440) L 02/09/21 05:49 Lymph % (Auto) 9.3 % (13.4-35.0) L 02/09/21 05:49 Latimer % (Auto) 10.8 % (0.0-7.3) H 02/09/21 05:49 Eos % (Auto) 0.4 % (0.0-4.3) 02/09/21 05:49 Baso % (Auto) 0.7 % (0.0-1.8) 02/09/21 05:49 Lymph # (Auto) 0.7 K/mm3 (1.2-5.4) L 02/09/21 05:49 Latimer # (Auto) 0.8 K/mm3 (0.0-0.8) 02/09/21 05:49 Eos # (Auto) 0.0 K/mm3 (0.0-0.4) 02/09/21 05:49 Baso # (Auto) 0.1 K/mm3 (0.0-0.1) 02/09/21 05:49 Seg Neutrophils % 78.8 % (40.0-70.0) H 02/09/21 05:49 Seg Neutrophils # 6.0 K/mm3 (1.8-7.7) 02/09/21 05:49 D-Dimer 722.90 ng/mlDDU (0-234) H 02/09/21 05:49 Sodium 139 mmol/L (137-145) 02/09/21 05:49 Potassium 3.7 mmol/L (3.6-5.0) 02/09/21 05:49 Chloride 101.2 mmol/L (98-107) 02/09/21 05:49 Carbon Dioxide 24 mmol/L (22-30) 02/09/21 05:49 Anion Gap 18 mmol/L 02/09/21 05:49 BUN 29 mg/dL (7-17) H 02/09/21 05:49 Creatinine 1.6 mg/dL (0.6-1.2) H 02/09/21 05:49 Estimated GFR 39 ml/min 02/09/21 05:49 BUN/Creatinine Ratio 18 % 02/09/21 05:49 Glucose 119 mg/dL (65-100) H 02/09/21 05:49 Lactic Acid 1.60 mmol/L (0.7-2.0) 02/09/21 08:02 Calcium 9.1 mg/dL (8.4-10.2) 02/09/21 05:49 Magnesium 2.20 mg/dL (1.7-2.3) 02/09/21 05:49 Total Bilirubin 1.60 mg/dL (0.1-1.2) H 02/09/21 05:49 AST 540 units/L (5-40) H 02/09/21 05:49 ALT 504 units/L (7-56) H 02/09/21 05:49 Alkaline Phosphatase 157 units/L (35-129) H 02/09/21 05:49 Troponin T < 0.010 ng/mL (0.00-0.029) 02/09/21 05:49 NT-Pro-B Natriuret Pep 62942 pg/mL (0-900) H 02/09/21 05:49 Total Protein 6.5 g/dL (6.3-8.2) 02/09/21 05:49 Albumin 3.8 g/dL (3.9-5) L 02/09/21 05:49 Albumin/Globulin Ratio 1.4 % 02/09/21 05:49 Microbiology: Microbiology 02/09/21 05:37 Peripheral/Venous Blood Culture - Preliminary Culture in Progress 02/09/21 05:49 Peripheral/Venous Blood Culture - Preliminary Culture in Progress Assessment and Plan Assessment and plan: Patient is a 70-year-old female with history of dilated nonischemic cardiomyopathy, atrial fibrillation, chronic systolic left ventricular heart failure with primary cardiac defibrillator in situ last year initially thought to be cardioembolic event and since then has been on Eliquis, she presents to the hospital today with complaint of shortness of breath as well as nausea and vomiting which started about a week ago the latter nausea vomiting resolved but returned 3 days later with associated diarrhea. She denies any fever reported lack of appetite but no loss of taste or sense of smell. The diarrhea she describes as to loose bowels. She reports that yesterday she noted that her heart rate was significantly high of admission several weeks ago her physician discontinued digoxin and spironolactone due to "toxin". She states this was not by her primary care physician but not discussed with her dye penetrant testing technician. On arrival to the ER she was noted to have a heart rate in the 160s. She was given several doses of diltiazem and then started on that diltiazem drip. While she reports shortness of breath and this was confirmed by the nurse in the ER at bedside she denied and does not show any lower extremity edema or crackles on examination. Chest x-ray done in the ER showed mild edema with evidence of mild congestive heart failure. She otherwise have elevated liver function test and bilirubin and is not on amiodarone or statin per the patient and per her mother. Denies any abdominal pain. Last May there was a recommendation to have GI evaluation this has not been done. Will be requested to admit the patient for possible GERD versus congestive heart failure versus sepsis and also rule out for Covid. She denied receiving Covid vaccine Atrial fibrillation, persistent, rate control, on Eliquis for anticoagulation Chest pain, atypical, likely GERD Nausea/vomiting JASON likely vasomotor nephropathy Transaminitis Hyperbilirubinemia History of TIA Mild thrombocytopenia Hx of Non-ischemic cardiomyopathy, LVEF 20-25% by echo 04/2020. Presence of AICD ([employer]) Hx of Breast Cancer, in remission Possible meningioma, noted on Repeat CT head on 05/11 --need further follow-up as outpatient with neurosurgery Plan Admit to telemetry Screening COVID TEST Discussed with cardiology Nursing to update home medication list Not sure why digoxin was discontinued by PCP will find out Continue cardizem, Add Metoprolol IV PRN per [facility] Coordinator Obtain Ultrasound of the abdomen Check LFT AND Hepatitis profile Outpatient neurosurgeon per previously recommended Daily weight GI and Hematology Nurse Educator consult Continue to avoid Statin at this time Plan discussed with patient. DVT/GI prophy Advance Directives: Yes Plan of care discussed with patient/family: Yes
[2021-02-09] MEDS ORDERED: DIGOXIN 0.125 MG TAB PO SCH (12:00)
[2021-02-09] MEDS ORDERED: MAGNESIUM HYDROXIDE (MOM) ORAL LIQD UDC PO PRN (12:30)
[2021-02-09] MEDS ORDERED: NALOXONE 0.4 MG/1 ML INJ IV PRN (12:30)
[2021-02-09] MEDS ORDERED: ACETAMINOPHEN 325 MG TAB PO PRN (12:30)
[2021-02-09] MEDS ORDERED: MORPHINE 2 MG/1 ML INJ IV PRN (12:30)
[2021-02-09] MEDS ORDERED: ALBUTEROL 2.5 MG/3 ML NEBU IH PRN (12:30)
[2021-02-09] MEDS: carvediloL 25 MG TAB PO SCH ×2 (13:00→23:11)
[2021-02-09] MEDS ORDERED: METOPROLOL TARTRATE 5 MG/5 ML INJ IV PRN ×2 (13:00→14:35)
[2021-02-09] MEDS: METOCLOPRAMIDE 10 MG/2 ML INJ IV SCH ×3 (13:00→22:44)
[2021-02-09] MEDS: PANTOPRAZOLE 40 MG INJ IV SCH (13:00)
--- NOTE | 2021-02-09 13:47 | Ultrasound Report ---
ULTRASOUND ABDOMEN, COMPLETE INDICATION / CLINICAL INFORMATION: TRANSAMINITIS. COMPARISON: None available. FINDINGS: PANCREAS: No significant abnormality. ABDOMINAL AORTA: No significant abnormality. IVC: No significant abnormality. LIVER: Granulomas in the liver. GALLBLADDER: Gallbladder wall thickening. No pericholecystic fluid. BILE DUCTS: No significant abnormality. Common bile duct measures 3 mm. KIDNEYS: Right: Multiple cysts largest measuring 2.1 x 2.2 x 2.4 cm and 3.3 x 4.1 x 3.4 cm Left: Mul tiple cysts largest measuring 3.4 x 3.7 x 3.7 cm. Second largest 2.7 x 2.7 x 2.8 cm SPLEEN: No significant abnormality. FREE FLUID: None. ADDITIONAL FINDINGS: None. IMPRESSION: 1. Gallbladder wall thickening. No pericholecystic fluid. 2. Bilateral renal cysts. Signer Name: Cornelio Greenfield MD Signed: 02/09/2021 1:43 PM Workstation Name: [id number]
--- NOTE | 2021-02-09 13:53 | Consultation ---
History of Present Illness Consult date: 02/09/21 Consult reason: atrial fibrillation, congestive heart failure History of present illness: Patient is a 70-year-old woman with a long history of a dilated nonischemic cardiomyopathy, chronic systolic left ventricular failure and with a primary cardiac defibrillator in situ. She has history of atrial fibrillation, which has been persistent in recent months, currently on a rate control strategy. She has been on oral anticoagulation with Eliquis since a TIA several months ago which was thought to be a cardioembolic event. She presents to the hospital at this time with 2 to 3 days of shortness of breath. There was no lower extremity edema. In the emergency room, EKG showed a rapid response to her underlying atrial fibrillation. She was placed on intravenous Cardizem for rate control. At this time, she is on the telemetry unit, rate control has improved and ventricular rate is currently in the 90s. Chest x-ray shows moderate to severe cardiomegaly with mild interstitial edema consistent with heart failure exacerbation. EKG shows atrial fibrillation with nonspecific ST and T wave abnormalities, no acute ischemic changes. Initial cardiac troponin levels are normal. The patient is compliant with her medical therapy, and states that she maintains a reduced sodium diet. Her laboratory values here also showed some elevation in her liver enzymes, and elevation in bilirubin levels. The patient is not on amiodarone on a chronic basis, and a statin is not listed on her MAR. Past History Past Medical History: atrial fib, heart failure, stroke Medications and Allergies Allergies Allergy/AdvReac Type Severity Reaction Status Date / Time ondansetron [From Zofran] Allergy Rash Verified 04/28/20 04:09 Rxshhei-Cjz-Rbf Reductase AdvReac Nausea Verified 06/11/20 12:33 Inhibitor Home Medications Medication Instructions Recorded Confirmed Last Taken Type Digoxin [Lanoxin] 0.125 mg PO DAILY #30 04/29/20 06/10/20 05/09/20 21:00 Rx Furosemide [Lasix TAB] 40 mg PO QDAY #30 04/29/20 06/10/20 05/09/20 21:00 Rx Spironolactone [Aldactone] 25 mg PO QDAY #30 tablet 04/29/20 06/10/20 05/10/20 09:00 Rx carvediloL [Coreg] 25 mg PO BID #60 04/29/20 06/10/20 05/10/20 09:00 Rx Apixaban [Eliquis] 5 mg PO Q12HR #60 tablet 05/12/20 06/10/20 Unknown Rx Metoclopramide [Reglan TAB] 10 mg PO TID PRN #30 tab 06/11/20 Unknown Rx Active Meds: Active Medications Acetaminophen (Acetaminophen 325 Mg Tab) 650 mg PO Q4H PRN PRN Reason: Pain MILD(1-3)/Fever >100.5/NAVAS Albuterol (Albuterol 2.5 Mg/3 Ml Nebu) 2.5 mg IH Q4HRT PRN PRN Reason: Shortness Of Breath Apixaban (Apixaban 5 Mg Tab) 5 mg PO Q12HR SHARON Carvedilol (Carvedilol 25 Mg Tab) 25 mg PO BID [facility] Last Admin: 02/09/21 13:00 Dose: 25 mg Documented by: Furosemide (Furosemide 40 Mg/4 Ml Inj) 40 mg IV QDAY [facility] Diltiazem HCl (Cardizem/D5w 100mg/100ml) 100 mg in 100 mls @ 5 mls/hr IV TITR SHARON; Protocol Last Titration: 02/09/21 12:20 Dose: 15 mg/hr, 15 mls/hr Documented by: Magnesium Hydroxide (Magnesium Hydroxide (Mom) Oral Liqd Udc) 30 ml PO Q4H PRN PRN Reason: Constipation Metoclopramide HCl (Metoclopramide 10 Mg/2 Ml Inj) 5 mg IV ACHS [facility] Last Admin: 02/09/21 13:00 Dose: 5 mg Documented by: Metoprolol Tartrate (Metoprolol Tartrate 5 Mg/5 Ml Inj) 2.5 mg IV Q4H PRN PRN Reason: Tachyarrhythmias Morphine Sulfate (Morphine 2 Mg/1 Ml Inj) 2 mg IV Q4H PRN PRN Reason: Pain, Moderate (4-6) Naloxone HCl (Naloxone 0.4 Mg/1 Ml Inj) 0.1 mg IV Q2MIN PRN PRN Reason: Res Rate </= 8 or 02 SAT < 92% Pantoprazole Sodium (Pantoprazole 40 Mg Inj) 40 mg IV QDAY [facility] Last Admin: 02/09/21 13:00 Dose: 40 mg Documented by: Senna (Sennosides 8.6 Mg Tab) 8.6 mg PO Q12HR SHARON Sodium Chloride (Sodium Chloride 0.9% 10 Ml Flush Syringe) 10 ml IV BID SHARON Sodium Chloride (Sodium Chloride 0.9% 10 Ml Flush Syringe) 10 ml IV PRN PRN PRN Reason: LINE FLUSH Review of Systems Cardiovascular: orthopnea, palpitations, rapid/irregular heart beat, shortness of breath, no edema, no syncope, no lightheadedness Physical Examination Vital Signs Pulse Resp Pulse Ox 103 H 15 98 02/09/21 05:05 02/09/21 05:05 02/09/21 05:05 General appearance: no acute distress HEENT: Positive: PERRL Neck: Positive: neck supple Cardiac: Positive: irregularly irregular Lungs: Positive: Decreased Breath Sounds Neuro: Positive: Grossly Intact Abdomen: Positive: Soft Female genitourinary: deferred Skin: Positive: Clear Extremities: Absent: edema Results 02/09/21 05:49 02/09/21 05:49 Cardiac Enzymes 02/09/21 Range/Units 05:49 AST 540 H (5-40) units/L CBC 02/09/21 Range/Units 05:49 WBC 7.7 (4.5-11.0) K/mm3 RBC 4.22 (3.65-5.03) M/mm3 Hgb 13.3 (10.1-14.3) gm/dl Hct 38.2 (30.3-42.9) % Plt Count 138 L (140-440) K/mm3 Lymph # (Auto) 0.7 L (1.2-5.4) K/mm3 [place] # (Auto) 0.8 (0.0-0.8) K/mm3 Eos # (Auto) 0.0 (0.0-0.4) K/mm3 Baso # (Auto) 0.1 (0.0-0.1) K/mm3 Comprehensive Metabolic Panel 02/09/21 Range/Units 05:49 Sodium 139 (137-145) mmol/L Potassium 3.7 (3.6-5.0) mmol/L Chloride 101.2 (98-107) mmol/L Carbon Dioxide 24 (22-30) mmol/L BUN 29 H (7-17) mg/dL Creatinine 1.6 H (0.6-1.2) mg/dL Glucose 119 H (65-100) mg/dL Calcium 9.1 (8.4-10.2) mg/dL AST 540 H (5-40) units/L ALT 504 H (7-56) units/L Alkaline Phosphatase 157 H (35-129) units/L Total Protein 6.5 (6.3-8.2) g/dL Albumin 3.8 L (3.9-5) g/dL EKG interpretations - Telemetry EKG Rhythm: Atrial Fibrillation Assessment and Plan - Patient Problems (1) Atrial fibrillation Current Visit: Yes Status: Acute Plan to address problem: Patient with persistent atrial fibrillation over the past several months, on rate control strategy. Presents with symptoms of heart failure exacerbation and a rapid response to her underlying atrial fibrillation. We will optimize rate control. Patient is currently on Cardizem which will be switched to oral form. With regards to other rate control agents, amiodarone cannot be used at this time due to abnormal liver function tests. She was previously on digoxin but this was discontinued by her primary care doctor. We will request records from the PCP to determine the contraindication to continued digoxin use. (2) CHF exacerbation Current Visit: No Status: Acute Qualifiers: Heart failure type: unspecified Qualified Code(s): I50.9 - Heart failure, unspecified Plan to address problem: Acute on chronic systolic heart failure exacerbation. We will place patient on intravenous furosemide, continue other heart failure therapies. We cannot use milrinone for heart failure exacerbation at this time due to the elevated liver enzymes, and EMMA inhibitors will be on hold due to the finding of an increased creatinine of 1.6. BiDil will be used in place of an EMMA or ARB, and further heart failure management will depend on clinical course. Patient also states that her spironolactone was stopped by her PCP, we will review indication for stoppage after we review the outpatient records.
[2021-02-09] MEDS: ISOSORB DINIT/HYDRALAZINE 20-37.5MG TAB PO SCH ×2 (15:00→23:11)
[2021-02-09] MEDS ORDERED: METOCLOPRAMIDE 10 MG/2 ML INJ IV SCH (16:30)
[2021-02-09 17:15] LABS: Hepatitis B Surface Antigen Non-Reactive (Negative); Hepatitis C Virus Antibody Non-Reactive (NonReactive)
[2021-02-09] MEDS: FUROSEMIDE 40 MG/4 ML INJ IV SCH (19:09)
[2021-02-09] MEDS: dilTIAZem 60 MG TAB PO SCH (19:10)
[2021-02-09] MEDS: POTASSIUM CHLORIDE ER 20 MEQ TAB PO SCH (19:20)
[2021-02-09] MEDS ORDERED: APIXABAN 5 MG TAB PO SCH (22:00)
[2021-02-09] MEDS ORDERED: NON-FORMULARY EACH (Apixaban 5 MG Tablet) PO SCH (22:00)
[2021-02-09] MEDS: SENNOSIDES 8.6 MG TAB PO SCH (22:50)
[2021-02-10] MEDS: dilTIAZem 60 MG TAB PO SCH ×4 (00:35→17:19)
[2021-02-10] MEDS: FUROSEMIDE 40 MG/4 ML INJ IV SCH ×2 (07:00→17:19)
--- NOTE | 2021-02-10 09:14 | Progress Note ---
Assessment and Plan Assessment and plan: Patient is a 70-year-old female with history of dilated nonischemic cardiomyopathy, atrial fibrillation, chronic systolic left ventricular heart failure with primary cardiac defibrillator in situ last year initially thought to be cardioembolic event and since then has been on Eliquis, she presents to the hospital today with complaint of shortness of breath as well as nausea and vomiting which started about a week ago the latter nausea vomiting resolved but returned 3 days later with associated diarrhea. She denies any fever reported lack of appetite but no loss of taste or sense of smell. The diarrhea she describes as to loose bowels. She reports that yesterday she noted that her heart rate was significantly high of admission several weeks ago her physician discontinued digoxin and spironolactone due to "toxin". She states this was not by her primary care physician but not discussed with her section hand helper. On arrival to the ER she was noted to have a heart rate in the 160s. She was given several doses of diltiazem and then started on that diltiazem drip. While she reports shortness of breath and this was confirmed by the nurse in the ER at bedside she denied and does not show any lower extremity edema or crackles on examination. Chest x-ray done in the ER showed mild edema with evidence of mild congestive heart failure. She otherwise have elevated liver function test and bilirubin and is not on amiodarone or statin per the patient and per her mother. Denies any abdominal pain. Last May there was a recommendation to have GI evaluation this has not been done. Will be requested to admit the patient for possible GERD versus congestive heart failure versus sepsis and also rule out for Covid. She denied receiving Covid vaccine Atrial fibrillation, persistent, rate control, on Eliquis for anticoagulation Chest pain, atypical, likely GERD Nausea/vomiting JASON likely vasomotor nephropathy Transaminitis Hyperbilirubinemia Hypokalemia History of TIA Mild thrombocytopenia Hx of Non-ischemic cardiomyopathy, LVEF 20-25% by echo 04/2020. Presence of AICD ([employer]) Hx of Breast Cancer, in remission Possible meningioma, noted on Repeat CT head on 05/11 --need further follow-up as outpatient with neurosurgery Plan 02/10: Screening COVID TEST NEGATIVE, Awaiting Labs, US abdomen concerning for gallbladder disease, will Obtain Surgical eval-Discussed with the team. Will change to Heparin drip, until decision about possible surgery is done. replace K Counselling provide to the patient about compliance with lifevest. Case discussed with GI team, no procedure planned by them, trend LFT. Nursing to update home medication list Not sure why digoxin was discontinued by PCP will find out Add Metoprolol IV PRN per Pearl Peller Check LFT AND Hepatitis profile Outpatient neurosurgeon per previously recommended Daily weight GI and Paste Mixer consult Continue to avoid Statin at this time Plan discussed with patient. DVT/GI prophy History Interval history: Patient seen and examined this morning, no new complaints, reports improvement in the nausea. Tolerated diet yesterday. Hospitalist Physical - Physical exam Narrative exam: VITAL SIGNS: Reviewed. GENERAL: The patient appears normally developed, Vital signs as documented. HEAD: No signs of head trauma. EYES: Pupils are equal. Extraocular motions intact. EARS: Hearing grossly intact. MOUTH: Oropharynx is normal. NECK: No adenopathy, no JVD. CHEST: Chest with clear breath sounds bilaterally. No wheezes, rales, or rhonchi. CARDIAC: Irregularly irregular stable S1 and S2, without murmurs, gallops, or rubs. VASCULAR: No Edema. Peripheral pulses normal and equal in all extremities. ABDOMEN: Soft, non tender and non distended. No rebound or guarding, and no masses palpated. Bowel Sounds normal. MUSCULOSKELETAL: Good range of motion of all major joints. Extremities without clubbing, cyanosis or edema. NEUROLOGIC EXAM: Alert and oriented x 3 No focal sensory or strength deficits. Speech normal. Follows commands. PSYCHIATRIC: Mood normal. SKIN: detail exam as documented in skin assessment - Constitutional Vitals: Temp Pulse Resp BP Pulse Ox 97.5 F L 61 17 108/66 100 02/10/21 05:13 02/10/21 06:59 02/10/21 05:13 02/10/21 06:59 02/10/21 05:13 General appearance: Present: no acute distress HEART Score - HEART Score Troponin: Troponin T < 0.010 ng/mL (0.00-0.029) 02/09/21 05:49 Results - Labs CBC & Chem 7: 02/10/21 15:59 02/10/21 15:59 Labs: Laboratory Last Values WBC 7.7 K/mm3 (4.5-11.0) 02/09/21 05:49 RBC 4.22 M/mm3 (3.65-5.03) 02/09/21 05:49 Hgb 13.3 gm/dl (10.1-14.3) 02/09/21 05:49 Hct 38.2 % (30.3-42.9) 02/09/21 05:49 MCV 91 fl (79-97) 02/09/21 05:49 MCH 32 pg (28-32) 02/09/21 05:49 MCHC 35 % (30-34) H 02/09/21 05:49 RDW 14.3 % (13.2-15.2) 02/09/21 05:49 Plt Count 138 K/mm3 (140-440) L 02/09/21 05:49 Lymph % (Auto) 9.3 % (13.4-35.0) L 02/09/21 05:49 [place] % (Auto) 10.8 % (0.0-7.3) H 02/09/21 05:49 Eos % (Auto) 0.4 % (0.0-4.3) 02/09/21 05:49 Baso % (Auto) 0.7 % (0.0-1.8) 02/09/21 05:49 Lymph # (Auto) 0.7 K/mm3 (1.2-5.4) L 02/09/21 05:49 [place] # (Auto) 0.8 K/mm3 (0.0-0.8) 02/09/21 05:49 Eos # (Auto) 0.0 K/mm3 (0.0-0.4) 02/09/21 05:49 Baso # (Auto) 0.1 K/mm3 (0.0-0.1) 02/09/21 05:49 Seg Neutrophils % 78.8 % (40.0-70.0) H 02/09/21 05:49 Seg Neutrophils # 6.0 K/mm3 (1.8-7.7) 02/09/21 05:49 D-Dimer 722.90 ng/mlDDU (0-234) H 02/09/21 05:49 Sodium 139 mmol/L (137-145) 02/09/21 05:49 Potassium 3.7 mmol/L (3.6-5.0) 02/09/21 05:49 Chloride 101.2 mmol/L (98-107) 02/09/21 05:49 Carbon Dioxide 24 mmol/L (22-30) 02/09/21 05:49 Anion Gap 18 mmol/L 02/09/21 05:49 BUN 29 mg/dL (7-17) H 02/09/21 05:49 Creatinine 1.6 mg/dL (0.6-1.2) H 02/09/21 05:49 Estimated GFR 39 ml/min 02/09/21 05:49 BUN/Creatinine Ratio 18 % 02/09/21 05:49 Glucose 119 mg/dL (65-100) H 02/09/21 05:49 Lactic Acid 1.60 mmol/L (0.7-2.0) 02/09/21 08:02 Calcium 9.1 mg/dL (8.4-10.2) 02/09/21 05:49 Magnesium 2.20 mg/dL (1.7-2.3) 02/09/21 05:49 Total Bilirubin 1.60 mg/dL (0.1-1.2) H 02/09/21 05:49 AST 540 units/L (5-40) H 02/09/21 05:49 ALT 504 units/L (7-56) H 02/09/21 05:49 Alkaline Phosphatase 157 units/L (35-129) H 02/09/21 05:49 Troponin T < 0.010 ng/mL (0.00-0.029) 02/09/21 05:49 NT-Pro-B Natriuret Pep 02580 pg/mL (0-900) H 02/09/21 05:49 Total Protein 6.5 g/dL (6.3-8.2) 02/09/21 05:49 Albumin 3.8 g/dL (3.9-5) L 02/09/21 05:49 Albumin/Globulin Ratio 1.4 % 02/09/21 05:49 TSH 3.110 mlU/mL (0.270-4.200) 02/09/21 16:31 Hepatitis A IgM Ab Non-reactive (NonReactive) 02/09/21 16:31 Hep Bs Antigen Non-reactive (Negative) 02/09/21 16:31 Hep B Core IgM Ab Non-reactive (NonReactive) 07/20/21 16:31 Hepatitis C Antibody Non-reactive (NonReactive) 02/09/21 16:31 Microbiology: Microbiology 02/09/21 05:37 Peripheral/Venous Blood Culture - Preliminary NO GROWTH AFTER 24 HOURS 02/09/21 05:49 Peripheral/Venous Blood Culture - Preliminary NO GROWTH AFTER 24 HOURS Cruz/IV: Voiding Method Toilet Active Medications - Current Medications Current Medications: Generic Name Dose Route Start Last Admin Trade Name Freq PRN Reason Stop Dose Admin Acetaminophen 650 mg 02/09/21 12:30 Acetaminophen 325 Mg Tab PO Q4H PRN Pain MILD(1-3)/Fever >100.5/NAVAS Albuterol 2.5 mg 02/09/21 12:30 Albuterol 2.5 Mg/3 Ml Nebu IH Q4HRT PRN Shortness Of Breath Apixaban 5 mg 02/09/21 22:00 02/09/21 22:44 Apixaban 5 Mg Tab PO 5 mg Q12HR SHARON Administration Carvedilol 25 mg 02/09/21 12:30 02/09/21 23:11 Carvedilol 25 Mg Tab PO Not Given BID SHARON Diltiazem HCl 60 mg 02/09/21 16:00 02/10/21 06:59 Diltiazem 60 Mg Tab PO Not Given Q6HR SHARON Furosemide 40 mg 02/09/21 18:00 02/10/21 07:00 Furosemide 40 Mg/4 Ml Inj IV Not Given 0600,1800 SHARON Isosorbide Dinitrate/Hydralazine 1 each 02/09/21 16:00 02/09/21 23:11 Isosorb Dinit/Hydralazine 20-37.5mg Tab PO Not Given BID SHARON Magnesium Hydroxide 30 ml 02/09/21 12:30 Magnesium Hydroxide (Mom) Oral Liqd Udc PO Q4H PRN Constipation Metoclopramide HCl 5 mg 02/09/21 12:30 02/09/21 22:44 Metoclopramide 10 Mg/2 Ml Inj IV 5 mg ACHS SHARON Administration Metoprolol Tartrate 2.5 mg 02/09/21 14:35 Metoprolol Tartrate 5 Mg/5 Ml Inj IV Q4H PRN HR >130 Morphine Sulfate 2 mg 02/09/21 12:30 Morphine 2 Mg/1 Ml Inj IV Q4H PRN Pain, Moderate (4-6) Naloxone HCl 0.1 mg 02/09/21 12:30 Naloxone 0.4 Mg/1 Ml Inj IV Q2MIN PRN Res Rate </= 8 or 02 SAT < 92% Pantoprazole Sodium 40 mg 02/09/21 13:00 02/09/21 13:00 Pantoprazole 40 Mg Inj IV 40 mg QDAY SHARON Administration Potassium Chloride 20 meq 02/09/21 16:00 02/09/21 19:20 Potassium Chloride Er 20 Meq Tab PO 20 meq QDAY SHARON Administration Senna 8.6 mg 02/09/21 22:00 02/09/21 22:50 Sennosides 8.6 Mg Tab PO 8.6 mg Q12HR SHARON Administration Sodium Chloride 10 ml 02/09/21 22:00 02/09/21 22:45 Sodium Chloride 0.9% 10 Ml Flush Syringe IV 10 ml BID SHARON Administration Sodium Chloride 10 ml 02/09/21 12:30 Sodium Chloride 0.9% 10 Ml Flush Syringe IV PRN PRN LINE FLUSH
--- NOTE | 2021-02-10 09:47 | Gastroenterology Consultation ---
History of Present Illness - Reason for Consult Consult date: 02/10/21 n/v, abnormal liver enzymes Requesting physician: BRIDGETTE PARSONS - History of Present Illness The patient is a 70 yo aaf with h/o chf with aicd, afib on anticoagulation presenting with n/v/diarrhea for 2 days. pt reports sudden onset of sx's, feels it was related to something bad she ate. similar n/v last year which self resolved. feels better now, ate yesterday without issues. denies any abd pain during these symptoms. diarrhea resolved. denies gi bleeding sx's. found to have elevated liver enzymes, mixed pattern but more pronounced hepatocellular elevation liver enzymes last year unremarkable. no known h/o liver disease. denies alcohol use. Past History Past Medical History: atrial fib, CAD, hypertension, hyperlipidemia, stroke (TIA) Social history: no significant social history Family history: CAD Medications and Allergies Allergies Allergy/AdvReac Type Severity Reaction Status Date / Time ondansetron [From Zofran] Allergy Rash Verified 04/28/20 04:09 Ibdpqny-Iyf-Vco Reductase AdvReac Nausea Verified 06/11/20 12:33 Inhibitor Home Medications Medication Instructions Recorded Confirmed Last Taken Type Digoxin [Lanoxin] 0.125 mg PO DAILY #30 04/29/20 06/10/20 05/09/20 21:00 Rx Furosemide [Lasix TAB] 40 mg PO QDAY #30 04/29/20 06/10/20 05/09/20 21:00 Rx Spironolactone [Aldactone] 25 mg PO QDAY #30 tablet 04/29/20 06/10/20 05/10/20 09:00 Rx carvediloL [Coreg] 25 mg PO BID #60 04/29/20 06/10/20 05/10/20 09:00 Rx Apixaban [Eliquis] 5 mg PO Q12HR #60 tablet 05/12/20 06/10/20 Unknown Rx Metoclopramide [Reglan TAB] 10 mg PO TID PRN #30 tab 06/11/20 Unknown Rx Active Meds: Active Medications Acetaminophen (Acetaminophen 325 Mg Tab) 650 mg PO Q4H PRN PRN Reason: Pain MILD(1-3)/Fever >100.5/NAVAS Albuterol (Albuterol 2.5 Mg/3 Ml Nebu) 2.5 mg IH Q4HRT PRN PRN Reason: Shortness Of Breath Carvedilol (Carvedilol 25 Mg Tab) 25 mg PO BID COUNTS INCLUDE 234 BEDS AT THE [facility] Last Admin: 02/09/21 23:11 Dose: Not Given Documented by: Diltiazem HCl (Diltiazem 60 Mg Tab) 60 mg PO Q6HR COUNTS INCLUDE 234 BEDS AT THE [facility] Last Admin: 02/10/21 06:59 Dose: Not Given Documented by: Furosemide (Furosemide 40 Mg/4 Ml Inj) 40 mg IV 0600,1800 COUNTS INCLUDE 234 BEDS AT THE [facility] Last Admin: 02/10/21 07:00 Dose: Not Given Documented by: Heparin Sodium (Porcine) (Heparin 10,000 Units/10 Ml Vial) 2,600 unit 40 unit/kg (2600 unit) IV Q6H PRN PRN Reason: Anti-Xa Assay<0.1 units/ml Heparin Sodium/Sodium Chloride (Heparin/ 0.45% Nacl-25,000 Unit/500 Ml) 25,000 unit in 500 mls @ 19.44 mls/hr IV TITR COUNTS INCLUDE 234 BEDS AT THE [facility]; Protocol Isosorbide Dinitrate/Hydralazine (Isosorb Dinit/Hydralazine 20-37.5mg Tab) 1 each PO BID COUNTS INCLUDE 234 BEDS AT THE [facility] Last Admin: 02/09/21 23:11 Dose: Not Given Documented by: Magnesium Hydroxide (Magnesium Hydroxide (Mom) Oral Liqd Udc) 30 ml PO Q4H PRN PRN Reason: Constipation Metoclopramide HCl (Metoclopramide 10 Mg/2 Ml Inj) 5 mg IV ACHS COUNTS INCLUDE 234 BEDS AT THE [facility] Last Admin: 02/09/21 22:44 Dose: 5 mg Documented by: Metoprolol Tartrate (Metoprolol Tartrate 5 Mg/5 Ml Inj) 2.5 mg IV Q4H PRN PRN Reason: HR >130 Morphine Sulfate (Morphine 2 Mg/1 Ml Inj) 2 mg IV Q4H PRN PRN Reason: Pain, Moderate (4-6) Naloxone HCl (Naloxone 0.4 Mg/1 Ml Inj) 0.1 mg IV Q2MIN PRN PRN Reason: Res Rate </= 8 or 02 SAT < 92% Pantoprazole Sodium (Pantoprazole 40 Mg Inj) 40 mg IV QDAY COUNTS INCLUDE 234 BEDS AT THE [facility] Last Admin: 02/09/21 13:00 Dose: 40 mg Documented by: Potassium Chloride (Potassium Chloride Er 20 Meq Tab) 20 meq PO QDAY COUNTS INCLUDE 234 BEDS AT THE [facility] Last Admin: 02/09/21 19:20 Dose: 20 meq Documented by: Senna (Sennosides 8.6 Mg Tab) 8.6 mg PO Q12HR COUNTS INCLUDE 234 BEDS AT THE [facility] Last Admin: 02/09/21 22:50 Dose: 8.6 mg Documented by: Sodium Chloride (Sodium Chloride 0.9% 10 Ml Flush Syringe) 10 ml IV BID COUNTS INCLUDE 234 BEDS AT THE [facility] Last Admin: 02/09/21 22:45 Dose: 10 ml Documented by: Sodium Chloride (Sodium Chloride 0.9% 10 Ml Flush Syringe) 10 ml IV PRN PRN PRN Reason: LINE FLUSH reviewed/updated patient's home and current medications Review of Systems - Review of Systems All systems: negative (per HPI) Exam - Constitutional Vital Signs: Temp Pulse Resp BP Pulse Ox 97.5 F L 61 17 108/66 100 02/10/21 05:13 02/10/21 06:59 02/10/21 05:13 02/10/21 06:59 02/10/21 05:13 General appearance: no acute distress - EENT Eyes: PERRL, EOM intact - Respiratory Respiratory effort: normal Respiratory: bilateral: CTA - Cardiovascular Rhythm: regular Heart Sounds: Present: S1 & S2 - Gastrointestinal General gastrointestinal: Present: soft, non-tender, non-distended - Neurologic Neurological: alert and oriented x3 - Psychiatric Psychiatric: appropriate mood/affect - Labs CBC & Chem 7: 02/09/21 05:49 02/09/21 05:49 Lab Results: Laboratory Results - last 24 hr 02/09/21 02/09/21 16:31 16:31 TSH 3.110 Hepatitis A IgM Ab Non-reactive Hep Bs Antigen Non-reactive Hep B Core IgM Ab Non-reactive Hepatitis C Antibody Non-reactive - Imaging CT Scan: report reviewed Ultrasound: report reviewed Assessment and Plan nausea/vomiting - resolved, unclear etiology. could have had gastroenteritis episode given duration and association with diarrhea which has since improved Acute diarrhea - most suggestive of infectious etiology, resolved now. abnormal liver enzymes - suspect underlying congestive hepatopathy but suspect component of ischemic hepatitis (hypotensive episode and due to degree of elevation). imaging without signs of obstructive process. would trend liver enzymes and monitor coags. supportive care otherwise from gi stand point.
--- NOTE | 2021-02-10 09:55 | Progress Note ---
Assessment and Plan Persistent atrial fibrillation on rate control strategy. on Eliquis for oral anticoagulation. CHF exacerbation EMMA inhibitors will be on hold due to the finding of an increased creatinine of 1.6. LVEF 25-30% by echo 04/2020 Presence of AICD ([employer]tr[employer]) Abnormal liver enzymes Renal failure Continue medical therapy for persistent atrial fibrillation and nonischemic cardiomyopathy. Subjective Date of service: 02/10/21 Interval history: Atrial fibrillation with a well controlled ventricular rate. Objective Vital Signs Temp Pulse Resp BP BP Pulse Ox 02/10/21 06:59 61 108/66 02/10/21 05:13 97.5 F L 61 17 108/66 100 02/10/21 00:35 56 L 100/46 02/09/21 23:11 56 L 100/46 02/09/21 23:06 97.6 F 56 L 17 100/46 100 02/09/21 21:56 98 02/09/21 19:10 60 02/09/21 16:43 60 84/50 99 02/09/21 15:00 68 96/59 02/09/21 14:28 96/59 02/09/21 14:23 98.1 F 59 L 96/51 02/09/21 13:00 64 02/09/21 12:53 82 21 109/66 98 02/09/21 12:51 115 H 25 H 109/66 100 02/09/21 12:49 117 H 24 109/66 99 02/09/21 12:47 117 H 22 109/66 98 02/09/21 12:45 100 H 26 H 109/66 97 02/09/21 12:43 128 H 30 H 109/66 98 02/09/21 12:41 103 H 20 109/66 98 02/09/21 12:39 108 H 17 109/66 97 02/09/21 12:37 106 H 24 109/66 97 02/09/21 12:35 129 H 19 109/66 98 02/09/21 12:33 115 H 24 109/66 98 02/09/21 12:31 25 H 109/66 96 02/09/21 12:29 96 H 23 109/66 98 02/09/21 12:27 113 H 18 109/66 97 02/09/21 12:25 121 H 18 109/66 97 02/09/21 12:23 106 H 21 112/66 98 02/09/21 12:21 16 112/66 96 02/09/21 12:19 15 112/66 98 02/09/21 12:17 17 112/66 97 02/09/21 12:15 23 112/66 98 02/09/21 12:13 21 112/66 98 02/09/21 12:11 24 112/66 98 02/09/21 12:09 23 112/66 96 02/09/21 12:07 15 112/66 98 02/09/21 12:05 112/66 99 02/09/21 12:03 119 H 21 112/66 99 02/09/21 12:01 120 H 22 112/66 99 02/09/21 11:59 140 H 25 H 112/66 97 02/09/21 11:57 120 H 25 H 112/66 100 02/09/21 11:55 123 H 22 112/66 95 02/09/21 11:53 126 H 27 H 117/74 98 02/09/21 11:51 116 H 25 H 117/74 99 02/09/21 11:49 122 H 21 117/74 100 02/09/21 11:47 114 H 21 117/74 96 02/09/21 11:45 118 H 21 117/74 97 02/09/21 11:43 109 H 27 H 117/74 100 02/09/21 11:41 117 H 23 117/74 97 02/09/21 11:39 118 H 21 117/74 96 02/09/21 11:37 96 H 28 H 117/74 95 02/09/21 11:35 103 H 17 117/74 99 02/09/21 11:33 113 H 19 117/74 98 02/09/21 11:31 149 H 23 117/74 98 02/09/21 11:29 153 H 21 117/74 100 02/09/21 11:27 117 H 20 117/74 99 02/09/21 11:25 107 H 26 H 117/74 99 02/09/21 11:23 98 H 24 121/69 97 20/21 11:21 102 H 26 H 121/69 97 20/ 11:19 135 H 22 121/69 99 02/09/ 11:17 119 H 19 121/69 98 02/09/ 11:15 112 H 25 H 121/69 98 07//21 11:13 125 H 15 121/69 98 02/09/21 11:11 103 H 20 121/69 98 02/09/21 11:09 142 H 22 121/69 98 02/09/21 11:07 113 H 14 121/69 98 02/09/21 11:01 119 H 23 121/69 96 02/09/21 10:45 107 H 22 113/78 96 02/09/21 10:31 113 H 19 113/78 97 02/09/21 10:15 114 H 24 109/75 98 02/09/21 10:01 112 H 22 109/75 98 - Physical Examination General: No Apparent Distress HEENT: Positive: PERRL Neck: Positive: neck supple Cardiac: Positive: irregularly irregular Neuro: Positive: Grossly Intact Abdomen: Positive: Soft Skin: Positive: Clear Extremities: Absent: edema
[2021-02-10] MEDS ORDERED: SPIRONOLACTONE 25 MG TAB PO SCH (10:00)
[2021-02-10] MEDS ORDERED: FUROSEMIDE 40 MG/4 ML INJ IV SCH (10:00)
[2021-02-10] MEDS ORDERED: HEPARIN 10,000 UNITS/10 ML VIAL IV PRN (10:00)
[2021-02-10] MEDS ORDERED: HEPARIN/ 0.45% NACL DRIP 25,000 UNIT/500 ML BAG IV SCH (10:00)
[2021-02-10] MEDS: PANTOPRAZOLE 40 MG INJ IV SCH (11:52)
[2021-02-10] MEDS: METOCLOPRAMIDE 10 MG/2 ML INJ IV SCH ×4 (11:53→22:17)
--- NOTE | 2021-02-10 15:12 | Nuclear Medicine Report ---
HIDA SCAN INDICATION: Nausea and vomiting COMPARISON: Ultrasound abdomen limited 02/09/2021 TECHNIQUE: 5.5 mCi of Tc-99m mebrofenin was injected IV per protocol. The patient drank 8 oz of ens ure. Multiple planar images in the region of the liver were then obtained. FINDINGS: There is prompt radiotracer uptake identified within the liver. The gallbladder was visuali zed at 15 min. There is normal GI excretion. The gallbladder ejection fraction was measured at 21 % (35% or greater is considered normal). IMPRESSION: No evidence of biliary obstruction. Normal gallbladder ejection fraction. Signer Name: Calos Vernon Jr, MD Signed: 02/10/2021 3:07 PM Workstation Name: [id number]
[2021-02-10 16:15] LABS: Basophils % (Auto) 0.9 % (0.0-1.8); Eosinophils # (Auto) 0.1 K/mm3 (0.0-0.4); Eosinophils % (Auto) 1.3 % (0.0-4.3); Hematocrit 38.7 % (30.3-42.9); Lymphocytes # (Auto) 0.8 K/mm3 (1.2-5.4); Lymphocytes % (Auto) 15.4 % (13.4-35.0); Mean Corpuscular HGB Conc 34 % (30-34); Mean Corpuscular Volume 91 fl (79-97); Monocytes # (Auto) 0.6 K/mm3 (0.0-0.8); Monocytes % (Auto) 11.9 % (0.0-7.3); Platelet Count 166 K/mm3 (140-440); Red Blood Count 4.23 M/mm3 (3.65-5.03); Red Cell Distribution Width 14.3 % (13.2-15.2)
[2021-02-10 16:27] LABS: INR 1.66 (0.87-1.13)
[2021-02-10 16:28] LABS: Partial Thromboplastin Time 56.8 Sec. (24.2-36.6)
[2021-02-10 16:34] LABS: Albumin 3.5 g/dL (3.9-5)
[2021-02-10] MEDS: carvediloL 25 MG TAB PO SCH ×2 (17:19→22:17)
[2021-02-10] MEDS: SENNOSIDES 8.6 MG TAB PO SCH ×3 (17:19→22:29)
[2021-02-10] MEDS: ISOSORB DINIT/HYDRALAZINE 20-37.5MG TAB PO SCH ×2 (17:19→22:16)
[2021-02-10] MEDS: POTASSIUM CHLORIDE ER 20 MEQ TAB PO SCH (17:33)
--- NOTE | 2021-02-10 18:12 | Consultation ---
History of Present Illness - Reason for Consult Consult date: 02/10/21 acute renal failure - History of Present Illness This is a 70-year-old woman with nonischemic cardiomyopathy, left heart failure, atrial fibrillation who presented with 3 day history of shortness of breath. There was no associated fever, chills or chest pain. Nephrology was consulted for acute kidney injury. Past History Past Medical History: atrial fib, CAD, hypertension, hyperlipidemia, stroke (TIA) Social history: no significant social history Family history: CAD Medications and Allergies Allergies Allergy/AdvReac Type Severity Reaction Status Date / Time ondansetron [From Zofran] Allergy Rash Verified 04/28/20 04:09 Aikqtrc-Ube-Ikv Reductase AdvReac Nausea Verified 06/11/20 12:33 Inhibitor Home Medications Medication Instructions Recorded Confirmed Last Taken Type Digoxin [Lanoxin] 0.125 mg PO DAILY #30 04/29/20 06/10/20 05/09/20 21:00 Rx Furosemide [Lasix TAB] 40 mg PO QDAY #30 04/29/20 06/10/20 05/09/20 21:00 Rx Spironolactone [Aldactone] 25 mg PO QDAY #30 tablet 04/29/20 06/10/20 05/10/20 09:00 Rx carvediloL [Coreg] 25 mg PO BID #60 04/29/20 06/10/20 05/10/20 09:00 Rx Apixaban [Eliquis] 5 mg PO Q12HR #60 tablet 05/12/20 06/10/20 Unknown Rx Metoclopramide [Reglan TAB] 10 mg PO TID PRN #30 tab 06/11/20 Unknown Rx Active Meds: Active Medications Acetaminophen (Acetaminophen 325 Mg Tab) 650 mg PO Q4H PRN PRN Reason: Pain MILD(1-3)/Fever >100.5/NAVAS Albuterol (Albuterol 2.5 Mg/3 Ml Nebu) 2.5 mg IH Q4HRT PRN PRN Reason: Shortness Of Breath Carvedilol (Carvedilol 25 Mg Tab) 25 mg PO BID [facility] Last Admin: 02/10/21 17:19 Dose: Not Given Documented by: Diltiazem HCl (Diltiazem 60 Mg Tab) 60 mg PO Q6HR [facility] Last Admin: 02/10/21 17:19 Dose: Not Given Documented by: Furosemide (Furosemide 40 Mg/4 Ml Inj) 40 mg IV 0600,1800 [facility] Last Admin: 02/10/21 17:19 Dose: Not Given Documented by: Heparin Sodium (Porcine) (Heparin 10,000 Units/10 Ml Vial) 2,600 unit 40 unit/kg (2600 unit) IV Q6H PRN PRN Reason: Anti-Xa Assay<0.1 units/ml Last Admin: 02/10/21 11:53 Dose: 2,600 unit Documented by: Heparin Sodium/Sodium Chloride (Heparin/ 0.45% Nacl-25,000 Unit/500 Ml) 25,000 unit in 500 mls @ 18 mls/hr IV TITR [facility]; Protocol Last Admin: 02/10/21 11:53 Dose: 900 units/hr, 18 mls/hr Documented by: Isosorbide Dinitrate/Hydralazine (Isosorb Dinit/Hydralazine 20-37.5mg Tab) 1 each PO BID [facility] Last Admin: 02/10/21 17:19 Dose: Not Given Documented by: Magnesium Hydroxide (Magnesium Hydroxide (Mom) Oral Liqd Udc) 30 ml PO Q4H PRN PRN Reason: Constipation Metoclopramide HCl (Metoclopramide 10 Mg/2 Ml Inj) 5 mg IV ACHS [facility] Last Admin: 02/10/21 17:33 Dose: 5 mg Documented by: Metoprolol Tartrate (Metoprolol Tartrate 5 Mg/5 Ml Inj) 2.5 mg IV Q4H PRN PRN Reason: HR >130 Morphine Sulfate (Morphine 2 Mg/1 Ml Inj) 2 mg IV Q4H PRN PRN Reason: Pain, Moderate (4-6) Naloxone HCl (Naloxone 0.4 Mg/1 Ml Inj) 0.1 mg IV Q2MIN PRN PRN Reason: Res Rate </= 8 or 02 SAT < 92% Pantoprazole Sodium (Pantoprazole 40 Mg Inj) 40 mg IV QDAY [facility] Last Admin: 02/10/21 11:52 Dose: 40 mg Documented by: Potassium Chloride (Potassium Chloride Er 20 Meq Tab) 20 meq PO QDAY [facility] Last Admin: 02/10/21 17:33 Dose: 20 meq Documented by: Senna (Sennosides 8.6 Mg Tab) 8.6 mg PO Q12HR [facility] Last Admin: 02/10/21 17:19 Dose: Not Given Documented by: Sodium Chloride (Sodium Chloride 0.9% 10 Ml Flush Syringe) 10 ml IV BID [facility] Last Admin: 02/10/21 11:54 Dose: 10 ml Documented by: Sodium Chloride (Sodium Chloride 0.9% 10 Ml Flush Syringe) 10 ml IV PRN PRN PRN Reason: LINE FLUSH Review of Systems Constitutional: other (Deferred to reduce transmission risk) Exam - Vital Signs Vital signs: Vital Signs Pulse Resp Pulse Ox 103 H 15 98 02/09/21 05:05 02/09/21 05:05 02/09/21 05:05 - Physical Exam Narrative exam: Deferred to reduce transmission risk Results - Lab Results 02/10/21 15:59 02/10/21 15:59 Most recent lab results Calcium 9.0 mg/dL (8.4-10.2) 02/10/21 15:59 Magnesium 2.20 mg/dL (1.7-2.3) 02/09/21 05:49 Assessment and Plan Acute kidney injury, unknown baseline Renal cysts, multiple Heart failure exacerbation Hypokalemia COVID PUI Agree with diuresis Ordered ultrasound for further evaluation of cysts Keep MAP more than 65 Hold EMMA/ARB Replete potassium to goal Strict I/O Renally dose medications Avoid nephrotoxins Renal diet
--- NOTE | 2021-02-10 18:30 | Consultation ---
History of Present Illness Consult date: 02/10/21 Chief complaint: Nausea vomiting - History of present illness History of present illness: 70-year-old female who presents to the emergency room with shortness of breath and is being worked up for congestive heart failure. Patient says that she had nausea and vomiting a day before admission of which she has had before which she had attributed to her Eliquis. Patient says that she has had intermittent nausea and vomiting before, and occasionally has episodes of diarrhea. Patient says that she currently has no nausea and vomiting and denies ever having any abdominal pain. Patient had elevated liver enzymes at this admission. Patient also had a HIDA scan that was negative for acute cholecystitis but did show some mild biliary dyskinesia. Past History Past Medical History: atrial fib, CAD, hypertension, hyperlipidemia, stroke (TIA) Social history: no significant social history Family history: CAD Medications and Allergies Allergies Allergy/AdvReac Type Severity Reaction Status Date / Time ondansetron [From Zofran] Allergy Rash Verified 04/28/20 04:09 Bnoycdm-Tha-Nyj Reductase AdvReac Nausea Verified 06/11/20 12:33 Inhibitor Home Medications Medication Instructions Recorded Confirmed Last Taken Type Digoxin [Lanoxin] 0.125 mg PO DAILY #30 04/29/20 06/10/20 05/09/20 21:00 Rx Furosemide [Lasix TAB] 40 mg PO QDAY #30 04/29/20 06/10/20 05/09/20 21:00 Rx Spironolactone [Aldactone] 25 mg PO QDAY #30 tablet 04/29/20 06/10/20 05/10/20 09:00 Rx carvediloL [Coreg] 25 mg PO BID #60 04/29/20 06/10/20 05/10/20 09:00 Rx Apixaban [Eliquis] 5 mg PO Q12HR #60 tablet 05/12/20 06/10/20 Unknown Rx Metoclopramide [Reglan TAB] 10 mg PO TID PRN #30 tab 06/11/20 Unknown Rx Active Meds: Active Medications Acetaminophen (Acetaminophen 325 Mg Tab) 650 mg PO Q4H PRN PRN Reason: Pain MILD(1-3)/Fever >100.5/NAVAS Albuterol (Albuterol 2.5 Mg/3 Ml Nebu) 2.5 mg IH Q4HRT PRN PRN Reason: Shortness Of Breath Carvedilol (Carvedilol 25 Mg Tab) 25 mg PO BID [facility] Last Admin: 02/10/21 17:19 Dose: Not Given Documented by: Diltiazem HCl (Diltiazem 60 Mg Tab) 60 mg PO Q6HR [facility] Last Admin: 02/10/21 17:19 Dose: Not Given Documented by: Furosemide (Furosemide 40 Mg/4 Ml Inj) 40 mg IV 0600,1800 [facility] Last Admin: 02/10/21 17:19 Dose: Not Given Documented by: Heparin Sodium (Porcine) (Heparin 10,000 Units/10 Ml Vial) 2,600 unit 40 unit/kg (2600 unit) IV Q6H PRN PRN Reason: Anti-Xa Assay<0.1 units/ml Last Admin: 02/10/21 11:53 Dose: 2,600 unit Documented by: Heparin Sodium/Sodium Chloride (Heparin/ 0.45% Nacl-25,000 Unit/500 Ml) 25,000 unit in 500 mls @ 18 mls/hr IV TITR [facility]; Protocol Last Admin: 02/10/21 11:53 Dose: 900 units/hr, 18 mls/hr Documented by: Isosorbide Dinitrate/Hydralazine (Isosorb Dinit/Hydralazine 20-37.5mg Tab) 1 each PO BID [facility] Last Admin: 02/10/21 17:19 Dose: Not Given Documented by: Magnesium Hydroxide (Magnesium Hydroxide (Mom) Oral Liqd Udc) 30 ml PO Q4H PRN PRN Reason: Constipation Metoclopramide HCl (Metoclopramide 10 Mg/2 Ml Inj) 5 mg IV ACHS [facility] Last Admin: 02/10/21 17:33 Dose: 5 mg Documented by: Metoprolol Tartrate (Metoprolol Tartrate 5 Mg/5 Ml Inj) 2.5 mg IV Q4H PRN PRN Reason: HR >130 Morphine Sulfate (Morphine 2 Mg/1 Ml Inj) 2 mg IV Q4H PRN PRN Reason: Pain, Moderate (4-6) Naloxone HCl (Naloxone 0.4 Mg/1 Ml Inj) 0.1 mg IV Q2MIN PRN PRN Reason: Res Rate </= 8 or 02 SAT < 92% Pantoprazole Sodium (Pantoprazole 40 Mg Inj) 40 mg IV QDAY [facility] Last Admin: 02/10/21 11:52 Dose: 40 mg Documented by: Potassium Chloride (Potassium Chloride Er 20 Meq Tab) 20 meq PO QDAY [facility] Last Admin: 02/10/21 17:33 Dose: 20 meq Documented by: Senna (Sennosides 8.6 Mg Tab) 8.6 mg PO Q12HR [facility] Last Admin: 02/10/21 17:19 Dose: Not Given Documented by: Sodium Chloride (Sodium Chloride 0.9% 10 Ml Flush Syringe) 10 ml IV BID [facility] Last Admin: 02/10/21 11:54 Dose: 10 ml Documented by: Sodium Chloride (Sodium Chloride 0.9% 10 Ml Flush Syringe) 10 ml IV PRN PRN PRN Reason: LINE FLUSH Review of Systems All systems: negative - Cardiovascular no chest pain - Respiratory no cough - Gastrointestinal no abdominal pain, no nausea, no vomiting, no diarrhea Exam Vital Signs Pulse Resp Pulse Ox 103 H 15 98 02/09/21 05:05 02/09/21 05:05 02/09/21 05:05 - General physical appearance Positive: well developed, no distress, no pain - Respiratory Positive: normal expansion, normal respiratory effort - Extremities Extremities: no ischemia - Abdomen Abdomen: Present: soft. Absent: tender, distended, guarding - Neurologic Neurologic: alert and oriented to time, place and person Results - Labs 02/10/21 15:59 02/10/21 15:59 Abnormal lab results 02/10/21 02/10/21 02/10/21 Range/Units 15:59 15:59 15:59 [place] % (Auto) 11.9 H (0.0-7.3) % Lymph # (Auto) 0.8 L (1.2-5.4) K/mm3 Seg Neutrophils % 70.5 H (40.0-70.0) % PT 20.1 H (12.2-14.9) Sec. INR 1.66 H (0.87-1.13) APTT 56.8 H (24.2-36.6) Sec. Potassium 3.4 L (3.6-5.0) mmol/L BUN 36 H (7-17) mg/dL Creatinine 1.4 H (0.6-1.2) mg/dL Glucose 101 H (65-100) mg/dL AST 646 H (5-40) units/L ALT 1033 H (7-56) units/L Alkaline Phosphatase 153 H (35-129) units/L Albumin 3.5 L (3.9-5) g/dL Diabetes panel 02/10/21 Range/Units 15:59 Sodium 141 (137-145) mmol/L Potassium 3.4 L (3.6-5.0) mmol/L Chloride 103.0 (98-107) mmol/L Carbon Dioxide 24 (22-30) mmol/L BUN 36 H (7-17) mg/dL Creatinine 1.4 H (0.6-1.2) mg/dL Glucose 101 H (65-100) mg/dL Calcium 9.0 (8.4-10.2) mg/dL AST 646 H (5-40) units/L ALT 1033 H (7-56) units/L Alkaline Phosphatase 153 H (35-129) units/L Total Protein 6.3 (6.3-8.2) g/dL Albumin 3.5 L (3.9-5) g/dL Calcium panel 02/10/21 Range/Units 15:59 Calcium 9.0 (8.4-10.2) mg/dL Albumin 3.5 L (3.9-5) g/dL Pituitary panel 02/10/21 Range/Units 15:59 Sodium 141 (137-145) mmol/L Potassium 3.4 L (3.6-5.0) mmol/L Chloride 103.0 (98-107) mmol/L Carbon Dioxide 24 (22-30) mmol/L BUN 36 H (7-17) mg/dL Creatinine 1.4 H (0.6-1.2) mg/dL Glucose 101 H (65-100) mg/dL Calcium 9.0 (8.4-10.2) mg/dL Adrenal panel 02/10/21 Range/Units 15:59 Sodium 141 (137-145) mmol/L Potassium 3.4 L (3.6-5.0) mmol/L Chloride 103.0 (98-107) mmol/L Carbon Dioxide 24 (22-30) mmol/L BUN 36 H (7-17) mg/dL Creatinine 1.4 H (0.6-1.2) mg/dL Glucose 101 H (65-100) mg/dL Calcium 9.0 (8.4-10.2) mg/dL Total Bilirubin 0.90 (0.1-1.2) mg/dL AST 646 H (5-40) units/L ALT 1033 H (7-56) units/L Alkaline Phosphatase 153 H (35-129) units/L Total Protein 6.3 (6.3-8.2) g/dL Albumin 3.5 L (3.9-5) g/dL - Imaging CT scan - abdomen: report reviewed, image reviewed CT scan - pelvis: report reviewed, image reviewed US - abdomen: report reviewed, image reviewed Assessment and Plan 70-year-old female with intermittent episodes of nausea and vomiting that is now resolved. Patient is afebrile and stable. Patient also has elevated enzymes of which gastroenterology has been consulted and has evaluated patient and does not believe elevation is due to gallbladder pathology. Patient does not have signs of acute cholecystitis, but does have biliary dyskinesia. Biliary dyskinesia does not explain her elevated liver enzymes. At this current time patient is asymptomatic, and acute surgical intervention is not warranted as there may be other contributing factors associated with her intermittent nausea and vomiting. If patient has unremitting nausea and vomiting, requires acute cholecystitis, cholecystectomy can be discussed further. No surgical intervention planned at this time. Will sign off.
--- NOTE | 2021-02-10 21:49 | Ultrasound Report ---
ULTRASOUND RENAL INDICATION / CLINICAL INFORMATION: JASON. COMPARISON: Abdominal ultrasound 02/09/2021 FINDINGS: RIGHT KIDNEY: Length = 11.0 cm. - Echogenicity: Normal. - Cortical Thickness: Normal. - Hydronephrosis: None. - Cyst / Mass: Multiple simple renal cysts. No solid mass identified. - Stones: None seen. LEFT KIDNEY: Length = 9.0 cm. - Echogenicity: Normal. - Cortical Thickness: Normal. - Hydronephrosis: None. - Cyst / Mass: Multiple simple renal cysts. No solid mass identified. - Stones: None seen. URINARY BLADDER: Decompressed and not well evaluated. FREE FLUID: None. ADDITIONAL FINDINGS: None. IMPRESSION: 1. Simple renal cysts bilaterally. Otherwise, no acute abnormality. Signer Name: Aldo Mcclure MD Signed: 02/10/2021 9:44 PM Workstation Name: [id number]
[2021-02-11] MEDS: dilTIAZem 60 MG TAB PO SCH ×3 (06:22→11:37)
[2021-02-11] MEDS: FUROSEMIDE 40 MG/4 ML INJ IV SCH (06:23)
[2021-02-11 06:33] LABS: Albumin 3.4 g/dL (3.9-5)
[2021-02-11] MEDS: METOCLOPRAMIDE 10 MG/2 ML INJ IV SCH ×2 (06:41→11:37)
[2021-02-11 08:58] VITALS: BP 102/70
--- NOTE | 2021-02-11 09:18 | Progress Note ---
Assessment and Plan Persistent atrial fibrillation on rate control strategy. on Eliquis as an outpatient for oral anticoagulation. CHF exacerbation LVEF 25-30% by echo 04/2020 Presence of AICD ([employer]) Abnormal liver enzymes Acute renal failure Nausea and vomiting -resolved HIDA scan was negative for acute cholecystitis Continue medical therapy for persistent atrial fibrillation and nonischemic cardiomyopathy. Otherwise, conservative cardiac management. Subjective Date of service: 02/11/21 Interval history: Resting in bed and appears comfortable. Denies chest pain, unusual shortness of breath, and palpitations. Nausea and vomiting has resolved. HIDA scan was negative for acute cholecystitis. No plans for surgery. Objective Vital Signs Temp Pulse Resp BP Pulse Ox 02/11/21 08:23 97.8 F 144 H 18 102/70 97 02/11/21 06:22 84 108/65 02/11/21 04:34 97.9 F 84 18 109/65 97 02/11/21 00:00 130 H 110/68 02/10/21 22:17 78 105/65 02/10/21 22:16 78 105/65 02/10/21 22:15 98.4 F 44 L 18 110/80 99 02/10/21 21:14 100 02/10/21 19:29 98.1 F 78 18 105/65 100 02/10/21 16:47 98.1 F 78 16 95/60 100 02/10/21 13:00 61 02/10/21 10:10 98.0 F 125 H 18 104/78 100 02/10/21 10:00 98 - Physical Examination General: No Apparent Distress HEENT: Positive: PERRL Neck: Positive: neck supple Cardiac: Positive: irregularly irregular Lungs: Positive: Decreased Breath Sounds Neuro: Positive: Grossly Intact Extremities: Absent: edema - Labs and Meds Cardiac Enzymes 02/10/21 02/11/21 Range/Units 15:59 05:52 AST 646 H 378 H (5-40) units/L Coagulation 02/10/21 Range/Units 15:59 PT 20.1 H (12.2-14.9) Sec. INR 1.66 H (0.87-1.13) APTT 56.8 H (24.2-36.6) Sec. CBC 02/10/21 Range/Units 15:59 WBC 5.5 (4.5-11.0) K/mm3 RBC 4.23 (3.65-5.03) M/mm3 Hgb 13.0 (10.1-14.3) gm/dl Hct 38.7 (30.3-42.9) % Plt Count 166 (140-440) K/mm3 Lymph # (Auto) 0.8 L (1.2-5.4) K/mm3 [place] # (Auto) 0.6 (0.0-0.8) K/mm3 Eos # (Auto) 0.1 (0.0-0.4) K/mm3 Baso # (Auto) 0.0 (0.0-0.1) K/mm3 Comprehensive Metabolic Panel 02/10/21 02/11/21 Range/Units 15:59 05:52 Sodium 141 140 (137-145) mmol/L Potassium 3.4 L 3.7 (3.6-5.0) mmol/L Chloride 103.0 103.3 (98-107) mmol/L Carbon Dioxide 24 24 (22-30) mmol/L BUN 36 H 38 H (7-17) mg/dL Creatinine 1.4 H 1.3 H (0.6-1.2) mg/dL Glucose 101 H 88 (65-100) mg/dL Calcium 9.0 9.0 (8.4-10.2) mg/dL AST 646 H 378 H (5-40) units/L ALT 1033 H 898 H (7-56) units/L Alkaline Phosphatase 153 H 168 H (35-129) units/L Total Protein 6.3 5.9 L (6.3-8.2) g/dL Albumin 3.5 L 3.4 L (3.9-5) g/dL
[2021-02-11] MEDS: PANTOPRAZOLE 40 MG INJ IV SCH (11:28)
[2021-02-11] MEDS: POTASSIUM CHLORIDE ER 20 MEQ TAB PO SCH (11:29)
[2021-02-11] MEDS: SENNOSIDES 8.6 MG TAB PO SCH (11:38)
[2021-02-11] MEDS: carvediloL 25 MG TAB PO SCH (11:58)
[2021-02-11] MEDS: ISOSORB DINIT/HYDRALAZINE 20-37.5MG TAB PO SCH (11:58)
--- NOTE | 2021-02-11 12:09 | Electrocardiograph Report ---
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
--- NOTE | 2021-02-11 12:31 | Discharge Summary ---
Providers - Providers Date of Admission: 02/09/21 10:28 Attending physician: BRIDGETTE PARSONS MD 02/09/21 11:37 Consult to Physician [CONS] Routine Comment: Consulting Provider: SIL DELANEY Physician Instructions: Reason For Exam: CHF Consult to Physician [CONS] Routine Comment: Consulting Provider: ERIN BAKER Physician Instructions: Reason For Exam: PERSISTENT NAUSEA AND VOMITING 02/09/21 11:38 Consult to Physician [CONS] Routine Comment: Consulting Provider: ASHLYN MARTINEZ Physician Instructions: Reason For Exam: JASON in setting of CHF 02/09/21 11:42 Consult to Dietitian/Nutrition [CONS] Routine Physician Instructions: Reason For Exam: Reason for Consult: Diet education 02/10/21 09:14 Consult to Physician [CONS] Routine Comment: Consulting Provider: MAREN BARLOW Physician Instructions: Reason For Exam: recurrent nausea and vomiting ?achalcolus vikas Primary care physician: CASE REVIEWER Hospitalization Reason for admission: Nausea vomiting Condition: Stable Hospital course: Patient is a 70-year-old female with history of dilated nonischemic cardiomyopathy, atrial fibrillation, chronic systolic left ventricular heart failure with primary cardiac defibrillator in situ last year initially thought to be cardioembolic event and since then has been on Eliquis, she presents to the hospital today with complaint of shortness of breath as well as nausea and vomiting which started about a week ago the latter nausea vomiting resolved but returned 3 days later with associated diarrhea. She denies any fever reported lack of appetite but no loss of taste or sense of smell. The diarrhea she describes as to loose bowels. She reports that yesterday she noted that her heart rate was significantly high of admission several weeks ago her physician discontinued digoxin and spironolactone due to "toxin". She states this was not by her primary care physician but not discussed with her rn field. On arrival to the ER she was noted to have a heart rate in the 160s. She was given several doses of diltiazem and then started on that diltiazem drip. While she reports shortness of breath and this was confirmed by the nurse in the ER at bedside she denied and does not show any lower extremity edema or crackles on examination. Chest x-ray done in the ER showed mild edema with evidence of mild congestive heart failure. She otherwise have elevated liver function test and bilirubin and is not on amiodarone or statin per the patient and per her mother. Denies any abdominal pain. Last May there was a recommendation to have GI evaluation this has not been done. Will be requested to admit the patient for possible GERD versus congestive heart failure versus sepsis and also rule out for Covid. She denied receiving Covid vaccine Patient will resume back Eliquis on discharge. Also blood pressure and cardiac arrhythmic medications were changed patient is now on diltiazem. Atrial fibrillation, persistent, rate control, on Eliquis for anticoagulation Chest pain, atypical, likely GERD Nausea/vomiting secondary to acute gastroenteritis with possible ischemic hepatitis JASON likely vasomotor nephropathy Transaminitis Hyperbilirubinemia Hypokalemia History of TIA Mild thrombocytopenia Hx of Non-ischemic cardiomyopathy, LVEF 20-25% by echo 04/2020. Presence of AICD ([employer]) Hx of Breast Cancer, in remission Possible meningioma, noted on Repeat CT head on 05/11 --need further follow-up as outpatient with neurosurgery Plan Patient was admitted and started on heparin drip after LFTs were noted in the mid elevated and imaging studies of the abdomen was concerning for gallbladder disease. HIDA scan did not show any evidence of acute cholecystitis but surgery and GI evaluated the patient recommended conservative management at this time. No surgical intervention or endoscopic intervention recommended. LFTs are beginning to trend down although still little bit high. A repeat study is pending. Patient is tolerating diet and can likely be discharged today to follow-up with GI primary care physician on Monday for a repeat LFT monitoring. Hepatitis screen was negative. No further cardiac work-up recommended. Outpatient evaluation for the meningioma possibly noted recommended. Disposition: - TO HOME OR SELFCARE Final Discharge Diagnosis (Prints w/discharge instructions): Acute gastroenteritis possible ischemic hepatitis Time spent for discharge: 35 minutes Core Measure Documentation - Palliative Care Palliative Care/ Comfort Measures: Not Applicable - Core Measures Any of the following diagnoses?: none Exam - Physical Exam Narrative exam: VITAL SIGNS: Reviewed. GENERAL: The patient appears normally developed, ambulating vital signs as documented. HEAD: No signs of head trauma. EYES: Pupils are equal. Extraocular motions intact. EARS: Hearing grossly intact. MOUTH: Oropharynx is normal. NECK: No adenopathy, no JVD. CHEST: Chest with clear breath sounds bilaterally. No wheezes, rales, or rhonchi. CARDIAC: Irregularly irregular stable S1 and S2, without murmurs, gallops, or rubs. VASCULAR: No Edema. Peripheral pulses normal and equal in all extremities. ABDOMEN: Soft, non tender and non distended. No rebound or guarding, and no masses palpated. Bowel Sounds normal. MUSCULOSKELETAL: Good range of motion of all major joints. Extremities without clubbing, cyanosis or edema. NEUROLOGIC EXAM: Alert and oriented x 3 No focal sensory or strength deficits. Speech normal. Follows commands. PSYCHIATRIC: Mood normal. SKIN: detail exam as documented in skin assessment - Constitutional Vitals: Temp Pulse Resp BP Pulse Ox 97.8 F 144 H 18 102/70 97 02/11/21 08:23 02/11/21 08:23 02/11/21 08:23 02/11/21 08:23 02/11/21 08:23 Plan Activity: advance as tolerated, fall precautions Diet: low fat, low salt Special Instructions: record daily weights, record daily BP diary Plan of Treatment: Must follow with primary care physician or plasterer stucco on Thursday 02/15 for a repeat LFTs Follow up with: JOVANY BRANTLEY MD [Primary Care Provider] - 3-5 Days SIL DELANEY MD [Staff Physician] - 7 Days ERIN BAKER MD [Staff Physician] - 7 Days Prescriptions: Isosorb Dinit/Hydralazine [Bidil 20/37.5MG] 1 each PO BID #60 tablet Diltiazem HCl [Diltiazem 12Hr ER] 120 mg PO BID #60 cap.er.12h
--- NOTE | 2021-02-11 14:09 | Gastroenterology Progress Note ---
Assessment and Plan abnormal liver enzymes - suspect ischemic hepatitis, improved levels today. supportive care from gi stand point. will sign off, f/u in gi clinic in 2 weeks. Subjective Date of service: 02/11/21 Principal diagnosis: abnormal liver enzymes Interval history: pt feels well with no gi complaints at this time. Objective - Constitutional Vitals: Temp Pulse Resp BP Pulse Ox 97.8 F 144 H 18 102/70 97 02/11/21 08:23 02/11/21 08:23 02/11/21 08:23 02/11/21 08:23 02/11/21 08:23 General appearance: no acute distress - Respiratory Respiratory effort: normal Respiratory: bilateral: CTA - Cardiovascular Rhythm: regular Heart Sounds: Present: S1 & S2 - Gastrointestinal General gastrointestinal: Present: soft, non-tender, non-distended - Labs CBC & Chem 7: 02/10/21 15:59 02/11/21 05:52 Labs: Laboratory Results - last 24 hr 02/09/21 02/10/21 02/10/21 Unknown 15:59 15:59 WBC 5.5 RBC 4.23 Hgb 13.0 Hct 38.7 MCV 91 MCH 31 MCHC 34 RDW 14.3 Plt Count 166 Lymph % (Auto) 15.4 [place] % (Auto) 11.9 H Eos % (Auto) 1.3 Baso % (Auto) 0.9 Lymph # (Auto) 0.8 L [place] # (Auto) 0.6 Eos # (Auto) 0.1 Baso # (Auto) 0.0 Seg Neutrophils % 70.5 H Seg Neutrophils # 3.9 PT INR APTT Heparin Anti-Xa Level Sodium 141 Potassium 3.4 L Chloride 103.0 Carbon Dioxide 24 Anion Gap 17 BUN 36 H Creatinine 1.4 H Estimated GFR 45 BUN/Creatinine Ratio 26 Glucose 101 H Calcium 9.0 Total Bilirubin 0.90 AST 646 H ALT 1033 H Alkaline Phosphatase 153 H Total Protein 6.3 Albumin 3.5 L Albumin/Globulin Ratio 1.3 Coronavirus (PCR) Negative 02/10/21 02/10/21 02/11/21 15:59 19:34 05:52 WBC RBC Hgb Hct MCV MCH MCHC RDW Plt Count Lymph % (Auto) [place] % (Auto) Eos % (Auto) Baso % (Auto) Lymph # (Auto) [place] # (Auto) Eos # (Auto) Baso # (Auto) Seg Neutrophils % Seg Neutrophils # PT 20.1 H INR 1.66 H APTT 56.8 H Heparin Anti-Xa Level 1.94 H Sodium 140 Potassium 3.7 Chloride 103.3 Carbon Dioxide 24 Anion Gap 16 BUN 38 H Creatinine 1.3 H Estimated GFR 49 BUN/Creatinine Ratio 29 Glucose 88 Calcium 9.0 Total Bilirubin 0.70 AST 378 H ALT 898 H Alkaline Phosphatase 168 H Total Protein 5.9 L Albumin 3.4 L Albumin/Globulin Ratio 1.4 Coronavirus (PCR) 02/11/21 05:52 WBC RBC Hgb Hct MCV MCH MCHC RDW Plt Count Lymph % (Auto) [place] % (Auto) Eos % (Auto) Baso % (Auto) Lymph # (Auto) [place] # (Auto) Eos # (Auto) Baso # (Auto) Seg Neutrophils % Seg Neutrophils # PT INR APTT Heparin Anti-Xa Level 1.66 H Sodium Potassium Chloride Carbon Dioxide Anion Gap BUN Creatinine Estimated GFR BUN/Creatinine Ratio Glucose Calcium Total Bilirubin AST ALT Alkaline Phosphatase Total Protein Albumin Albumin/Globulin Ratio Coronavirus (PCR)
[2021-02-11 15:23] LABS: Albumin 3.3 g/dL (3.9-5); Bilirubin,Direct 0.3 mg/dL (0-0.2)
--- NOTE | 2021-02-11 17:21 | Progress Note ---
Assessment and Plan Acute kidney injury, unknown baseline Renal cysts, multiple Heart failure exacerbation Hypokalemia Patient notified of multiple simple cysts on both kidneys Continue current management Keep MAP more than 65 Hold EMMA/ARB Replete potassium to goal Strict I/O Renally dose medications Avoid nephrotoxins Renal diet Will need outpatient renal f/u Subjective Date of service: 02/11/21 Principal diagnosis: abnormal liver enzymes Interval history: Up in bed. Conversant. Denies shortness of breath. Objective - Exam Narrative Exam: General: No acute distress HEENT: Oral mucosa moist Neck: Supple, no JVD Chest: Clear to auscultation bilaterally Heart: RRR, S1 and S2, no pericardial rub Abdomen: Soft, nontender, no renal bruit Extremity: No peripheral cyanosis, edema Neurological: Alert, awake, no asterixis Dermatology: No skin rash Psych: No agitation Musculoskeletal: No joint effusion - Vital Signs Vital signs: Vital Signs - 12hr 02/11/21 02/11/21 06:22 08:23 Temperature 97.8 F Pulse Rate 84 144 H Respiratory 18 Rate Blood Pressure 108/65 102/70 O2 Sat by Pulse 97 Oximetry - Lab 02/10/21 15:59 02/11/21 05:52 Most recent lab results Calcium 9.0 mg/dL (8.4-10.2) 02/11/21 05:52 Magnesium 2.20 mg/dL (1.7-2.3) 02/09/21 05:49 Medications & Allergies - Medications Allergies/Adverse Reactions: Allergies ondansetron [From Zofran] Allergy (Verified 04/28/20 04:09) Rash [id number] Reductase Inhibitor Adverse Reaction (Verified 06/11/20 12:33) Nausea Home Medications: Home Medications Medication Instructions Recorded Confirmed Last Taken Type Furosemide [Lasix TAB] 40 mg PO QDAY #30 04/29/20 06/10/20 05/09/20 21:00 Rx carvediloL [Coreg] 25 mg PO BID #60 04/29/20 06/10/20 05/10/20 09:00 Rx Apixaban [Eliquis] 5 mg PO Q12HR #60 tablet 05/12/20 06/10/20 Unknown Rx Metoclopramide [Reglan TAB] 10 mg PO TID PRN #30 tab 06/11/20 Unknown Rx Diltiazem HCl [Diltiazem 12Hr ER] 120 mg PO BID #60 cap.er.12h 02/11/21 Unknown Rx Isosorb Dinit/Hydralazine [Bidil 1 each PO BID #60 tablet 02/11/21 Unknown Rx 20/37.5MG] Active Medications: Generic Name Dose Route Start Last Admin Trade Name Freq PRN Reason Stop Dose Admin Acetaminophen 650 mg 02/09/21 12:30 Acetaminophen 325 Mg Tab PO Q4H PRN Pain MILD(1-3)/Fever >100.5/NAVAS Albuterol 2.5 mg 02/09/21 12:30 Albuterol 2.5 Mg/3 Ml Nebu IH Q4HRT PRN Shortness Of Breath Carvedilol 25 mg 02/09/21 12:30 02/11/21 11:58 Carvedilol 25 Mg Tab PO 25 mg BID SHARON Administration Diltiazem HCl 60 mg 02/09/21 16:00 02/11/21 11:37 Diltiazem 60 Mg Tab PO 60 mg Q6HR SHARON Administration Furosemide 40 mg 02/09/21 18:00 02/11/21 06:23 Furosemide 40 Mg/4 Ml Inj IV Not Given 0600,1800 [facility] Heparin Sodium (Porcine) 2,600 unit 02/10/21 10:00 02/10/21 11:53 Heparin 10,000 Units/10 Ml Vial 40 unit/kg (2600 unit) 2,600 unit IV Administration Q6H PRN Anti-Xa Assay<0.1 units/ml Heparin Sodium/Sodium Chloride 25,000 unit in 500 mls @ 18 mls/hr 02/10/21 10:00 02/11/21 08:30 Heparin/ 0.45% Nacl-25,000 Unit/500 Ml IV 650 units/hr TITR SHARON 13 mls/hr Titration Protocol 900 UNITS/HR Isosorbide Dinitrate/Hydralazine 1 each 02/09/21 16:00 02/11/21 11:58 Isosorb Dinit/Hydralazine 20-37.5mg Tab PO 1 each BID SHARON Administration Magnesium Hydroxide 30 ml 02/09/21 12:30 Magnesium Hydroxide (Mom) Oral Liqd Udc PO Q4H PRN Constipation Metoclopramide HCl 5 mg 02/09/21 12:30 02/11/21 11:37 Metoclopramide 10 Mg/2 Ml Inj IV 5 mg ACHS SHARON Administration Metoprolol Tartrate 2.5 mg 02/09/21 14:35 Metoprolol Tartrate 5 Mg/5 Ml Inj IV Q4H PRN HR >130 Morphine Sulfate 2 mg 02/09/21 12:30 Morphine 2 Mg/1 Ml Inj IV Q4H PRN Pain, Moderate (4-6) Naloxone HCl 0.1 mg 02/09/21 12:30 Naloxone 0.4 Mg/1 Ml Inj IV Q2MIN PRN Res Rate </= 8 or 02 SAT < 92% Pantoprazole Sodium 40 mg 02/09/21 13:00 02/11/21 11:28 Pantoprazole 40 Mg Inj IV 40 mg QDAY SHARON Administration Potassium Chloride 20 meq 02/09/21 16:00 02/11/21 11:29 Potassium Chloride Er 20 Meq Tab PO 20 meq QDAY SHARON Administration Senna 8.6 mg 02/09/21 22:00 02/11/21 11:38 Sennosides 8.6 Mg Tab PO Not Given Q12HR SHARON Sodium Chloride 10 ml 02/09/21 22:00 02/11/21 11:29 Sodium Chloride 0.9% 10 Ml Flush Syringe IV 10 ml BID SHARON Administration Sodium Chloride 10 ml 02/09/21 12:30 Sodium Chloride 0.9% 10 Ml Flush Syringe IV PRN PRN LINE FLUSH
== END 2021-02-11 18:23 | disposition home or self-care (01) | DRG 682 ==
LOC: ED 04:56 → 4A 10:28
PROVIDERS: ADMIT Internal Medicine; ATTEND Internal Medicine
DX: N17.0 Acute kidney failure with tubular necrosis (principal); I50.23 Acute on chronic systolic (congestive) heart failure; I48.19 Other persistent atrial fibrillation; I42.8 Other cardiomyopathies; R74.01 Elevation of levels of liver transaminase levels; K21.9 Gastro-esophageal reflux disease without esophagitis; Z20.822 Contact with and (suspected) exposure to COVID-19; I25.10 Atherosclerotic heart disease of native coronary artery without angina pectoris; E87.6 Hypokalemia; I11.0 Hypertensive heart disease with heart failure; N28.1 Cyst of kidney, acquired; K75.89 Other specified inflammatory liver diseases; K52.9 Noninfective gastroenteritis and colitis, unspecified; Z82.49 Family history of ischemic heart disease and other diseases of the circulatory system; Z79.899 Other long term (current) drug therapy; Z95.810 Presence of automatic (implantable) cardiac defibrillator; Z86.73 Personal history of transient ischemic attack (TIA), and cerebral infarction without residual deficits; Z79.01 Long term (current) use of anticoagulants
CPT/HCPCS: 36415; 71045; 71275; 76700; 76770; 78226; 80053; 80074; 80076; 82140; 83735; 83880; 84443; 84484; 85025; 85379; 85520; 85610; 85730; 87040; 87086; 93005; 96365; 96375; G0378; A9537; C9113; J1644; J1940; J2765; Q9967; U0003

== ENCOUNTER 2021-02-14 12:27 | Inpatient (IN) | payer MEDICARE ==
--- NOTE | 2021-02-14 12:47 | Emergency Department Report ---
ED Palpitations HPI - General Stated Complaint: CHEST PAIN Time Seen by Provider: 02/14/21 12:39 - History of Present Illness Initial Comments: Patient is 70 years old female with history of atrial fibrillation, congestive heart failure, defibrillator. Patient recently discharged from the hospital for atrial fibrillation with RVR. Patient was discharged on diltiazem however she stated that she was unable to fill her medication. Patient brought to the emergency room via EMS from home for shortness of breath and palpitation. Patient found to be in atrial fibrillation with RVR and a heart rate of 160. Patient is also complaining of chest pain and shortness of breath. Patient denied any fever or chills. No nausea or vomiting. Patient immediately given Cardizem 10 mg and started on Cardizem drip. MD Complaint: "heart racing", palpitations, irregular heart beat, atrial fibrillation -: days(s) Context: occured during rest Arrythmia History: atrial fibrillation Associated Symptoms: chest pain, shortness of breath - Related Data Previous Rx's Medication Instructions Recorded Last Taken Type Furosemide [Lasix TAB] 40 mg PO QDAY #30 04/29/20 05/09/20 21:00 Rx carvediloL [Coreg] 25 mg PO BID #60 04/29/20 05/10/20 09:00 Rx Apixaban [Eliquis] 5 mg PO Q12HR #60 tablet 05/12/20 Unknown Rx Metoclopramide [Reglan TAB] 10 mg PO TID PRN #30 tab 06/11/20 Unknown Rx Diltiazem HCl [Diltiazem 12Hr ER] 120 mg PO BID #60 cap.er.12h 02/11/21 Unknown Rx Isosorb Dinit/Hydralazine [Bidil 1 each PO BID #60 tablet 02/11/21 Unknown Rx 20/37.5MG] Allergies Allergy/AdvReac Type Severity Reaction Status Date / Time ondansetron [From Zofran] Allergy Rash Verified 04/28/20 04:09 Qhhjfhk-Sny-Ott Reductase AdvReac Nausea Verified 06/11/20 12:33 Inhibitor ED Review of Systems ROS: Stated complaint: CHEST PAIN Other details as noted in HPI Comment: All other systems reviewed and negative Constitutional: denies: chills, fever Respiratory: shortness of breath, SOB with exertion, SOB at rest. denies: cough Cardiovascular: chest pain, palpitations, dyspnea on exertion, orthopnea Gastrointestinal: denies: abdominal pain, nausea Musculoskeletal: denies: back pain Neurological: denies: headache, weakness ED Past Medical Hx - Past Medical History Hx Hypertension: Yes Hx CVA: Yes Hx Congestive Heart Failure: Yes (Defibrilator) - Surgical History Hx Internal Defibrillator: Yes Hx Breast Surgery: Yes Additional Surgical History: Partial Thyroid removed, Rhinoplasty - Social History Smoking Status: Never Smoker Substance Use Type: None - Medications Home Medications: Home Medications Medication Instructions Recorded Confirmed Last Taken Type Furosemide [Lasix TAB] 40 mg PO QDAY #30 04/29/20 06/10/20 05/09/20 21:00 Rx carvediloL [Coreg] 25 mg PO BID #60 04/29/20 06/10/20 05/10/20 09:00 Rx Apixaban [Eliquis] 5 mg PO Q12HR #60 tablet 05/12/20 06/10/20 Unknown Rx Metoclopramide [Reglan TAB] 10 mg PO TID PRN #30 tab 06/11/20 Unknown Rx Diltiazem HCl [Diltiazem 12Hr ER] 120 mg PO BID #60 cap.er.12h 02/11/21 Unknown Rx Isosorb Dinit/Hydralazine [Bidil 1 each PO BID #60 tablet 02/11/21 Unknown Rx 20/37.5MG] ED Physical Exam - General General appearance: alert, in no apparent distress - Head Head exam: Present: atraumatic, normocephalic, normal inspection - Eye Eye exam: Present: normal appearance, PERRL - ENT ENT exam: Present: normal exam, normal orophraynx, mucous membranes moist - Neck Neck exam: Present: normal inspection, full ROM. Absent: tenderness, meningismus - Respiratory Respiratory exam: Present: normal lung sounds bilaterally - Cardiovascular Cardiovascular Exam: Present: tachycardia, irregular rhythm - GI/Abdominal GI/Abdominal exam: Present: soft, normal bowel sounds. Absent: distended, t enderness, guarding, rebound, rigid, organomegaly, mass, bruit, pulsatile mass, hernia - Extremities Exam Extremities exam: Present: normal inspection, full ROM, normal capillary refill. Absent: tenderness, pedal edema, joint swelling, calf tenderness - Back Exam Back exam: Present: normal inspection, full ROM. Absent: CVA tenderness (R), CVA tenderness (L) - Neurological Exam Neurological exam: Present: alert, oriented X3, CN II-XII intact - Psychiatric Psychiatric exam: Present: normal mood - Skin Skin exam: Present: warm, intact, normal color ED Course Vital Signs 02/14/21 02/14/21 02/14/21 12:40 12:46 13:00 Pulse Rate 128 H 144 H 157 H Respiratory 17 19 19 Rate Blood Pressure O2 Sat by Pulse 97 98 Oximetry 02/14/21 02/14/21 02/14/21 13:11 13:16 13:30 Pulse Rate 130 H 102 H 102 H Respiratory 20 14 Rate Blood Pressure 131/96 131/96 O2 Sat by Pulse 95 96 Oximetry ED Medical Decision Making - Lab Data Result diagrams: 02/14/21 12:48 02/14/21 12:48 - EKG Data -: EKG Interpreted by Ks EKG shows normal: sinus rhythm Rate: tachycardia - EKG Data 02/14/21 14:47 Atrial fibrillation with RVR . - Radiology Data Radiology results: report reviewed - Medical Decision Making Patient is 70 years old female with history of atrial fibrillation, congestive heart failure, defibrillator. Patient recently discharged from the hospital for atrial fibrillation with RVR. Patient was discharged on diltiazem however she stated that she was unable to fill her medication. Patient brought to the emergency room via EMS from home for shortness of breath and palpitation. Patient found to be in atrial fibrillation with RVR and a heart rate of 160. P atient is also complaining of chest pain and shortness of breath. Patient denied any fever or chills. No nausea or vomiting. Patient immediately given Cardizem 10 mg and started on Cardizem drip. Heart rate improved to 101. I discussed the patient with Dr. Meade, settlement agent on-call for the patient. He advised to admit the patient to the hospital for possible cardioversion. I discussed the patient with Dr. Carlton, he agreed to admit the patient to medical service for further management. Critical Care Time: Yes Critical care time in (mins) excluding proc time.: 30 Critical care attestation.: If time is entered above; I have spent that time in minutes in the direct care of this critically ill patient, excluding procedure time. ED Disposition Clinical Impression: CHF exacerbation, Atrial fibrillation with RVR Disposition: OP ADMIT IP TO THIS HOSP Is pt being admited?: Yes Condition: Stable
[2021-02-14] MEDS ORDERED: dilTIAZem 25 MG/5 ML INJ IV ONE (12:48)
--- NOTE | 2021-02-14 13:19 | XRay Report ---
CHEST 1 VIEW 1308 INDICATION / CLINICAL INFORMATION: Dysrhythmia COMPARISON: 02/09/2021 FINDINGS: SUPPORT DEVICES: Stable HEART / MEDIASTINUM: Stable LUNGS / PLEURA: Congestion has nearly cleared. Mild right basilar atelectatic changes are seen. No pn eumothorax. ADDITIONAL FINDINGS: No significant additional findings. Signer Name: Trevin Jenkins MD Signed: 02/14/2021 1:14 PM Workstation Name: [id number]
[2021-02-14 13:22] LABS: Basophils # (Auto) 0.1 K/mm3 (0.0-0.1); Basophils % (Auto) 0.8 % (0.0-1.8); Eosinophils # (Auto) 0.1 K/mm3 (0.0-0.4); Eosinophils % (Auto) 0.7 % (0.0-4.3); Hematocrit 37.9 % (30.3-42.9); Hemoglobin 12.8 gm/dl (10.1-14.3); Lymphocytes # (Auto) 1.3 K/mm3 (1.2-5.4); Mean Corpuscular HGB Conc 34 % (30-34); Mean Corpuscular Volume 91 fl (79-97); Monocytes # (Auto) 0.9 K/mm3 (0.0-0.8); Monocytes % (Auto) 11.8 % (0.0-7.3); Platelet Count 209 K/mm3 (140-440); Red Blood Count 4.18 M/mm3 (3.65-5.03); Red Cell Distribution Width 14.7 % (13.2-15.2)
[2021-02-14] MEDS ORDERED: dilTIAZem/D5W 100 MG/100 ML BAG IV SCH ×2 (13:27→14:00)
[2021-02-14 13:35] LABS: INR 1.59 (0.87-1.13)
[2021-02-14 13:36] LABS: Partial Thromboplastin Time 34.9 Sec. (24.2-36.6)
[2021-02-14 13:48] LABS: BUN/Creatinine Ratio 23; Blood Urea Nitrogen 32 mg/dL (7-17); Calcium 9.1 mg/dL (8.4-10.2); Hemolysis Index 7
--- NOTE | 2021-02-14 15:05 | History and Physical Report ---
History of Present Illness Chief complaint: My heart is racing History of present illness: 70 YO Female with HTN, Atrial Fib on therapeutic anticoagulation, GERD, Pulmonary HTN, CHF (EF20%) S/P ICD placement presents to ED for evaluation. Pt reports "My heart is racing". Pt states that she has experienced chest palpita tions over the past 1 day with persistent symptoms over the same timeframe. Patient knowledges medication noncompliance with her cardiac rate control medication. EMS was notified and upon arrival patient was found to be in distress and subsequently transported to [facility] for further care and evaluation of the aforementioned symptoms. The patient was seen and evaluated in the emergency department. All laboratory studies reviewed. Patient found to have atrial fibrillation with rapid ventricular response with a heart rate in the 150s. Patient treated with Cardizem bolus with normalization of heart rate. Cardiology team consulted in ED. Patient placed in observation status and admitted to telemetry and initiated on CHF protocol. PARMINDER ordered as per cardiology request for further evaluation. Patient denies fever, chills, chest pain, productive cough, skin rash, recent ill contacts, trauma, unilateral leg swelling, calf pain, individual/family history of DVT/PE/bleeding/blood clotting disorders, or known exposure to COVID-19. Prior admission on 02/09/2021 reviewed. All medication listed at time of admission has been reconciled. Advanced care planning conducted in ED. Past History Past Medical History: arrhythmia, GERD, heart failure, hypertension, other (See HPI) Past Surgical History: mastectomy, Other (Thyroidectomy, rhinoplasty) Social history: single. denies: alcohol abuse, prescription drug abuse Family history: diabetes, hypertension Medications and Allergies Allergies Allergy/AdvReac Type Severity Reaction Status Date / Time ondansetron [From Zofran] Allergy Rash Verified 04/28/20 04:09 Lunkbye-Sav-Fbh Reductase AdvReac Nausea Verified 06/11/20 12:33 Inhibitor Home Medications Medication Instructions Recorded Confirmed Last Taken Type Furosemide [Lasix TAB] 40 mg PO QDAY #30 04/29/20 06/10/20 05/09/20 21:00 Rx carvediloL [Coreg] 25 mg PO BID #60 04/29/20 06/10/20 05/10/20 09:00 Rx Apixaban [Eliquis] 5 mg PO Q12HR #60 tablet 05/12/20 06/10/20 Unknown Rx Metoclopramide [Reglan TAB] 10 mg PO TID PRN #30 tab 06/11/20 Unknown Rx Diltiazem HCl [Diltiazem 12Hr ER] 120 mg PO BID #60 cap.er.12h 02/11/21 Unknown Rx Isosorb Dinit/Hydralazine [Bidil 1 each PO BID #60 tablet 02/11/21 Unknown Rx 20/37.5MG] Active Meds: Active Medications Diltiazem HCl (Cardizem/D5w 100mg/100ml) 100 mg in 100 mls @ 5 mls/hr IV TITR SHARON; Protocol Last Admin: 02/14/21 13:36 Dose: 5 mg/hr, 5 mls/hr Documented by: Review of Systems Constitutional: no weight loss, no weight gain, no fever, no chills Ears, nose, mouth and throat: no ear pain, no tinnitis, no nose pain, no nasal congestion, no nasal discharge Breasts: no change in shape, no swelling, no mass Cardiovascular: palpitations, rapid/irregular heart beat, high blood pressure, no chest pain, no lightheadedness, no paroxysmal nocturnal dyspnea Respiratory: no cough, no cough with sputum, no hemoptysis Gastrointestinal: no abdominal pain, no nausea, no vomiting, no diarrhea Genitourinary Female: no pelvic pain, no flank pain, no dysuria, no urinary frequency, no urgency Rectal: no pain, no incontinence, no bleeding Musculoskeletal: no neck stiffness, no neck pain, no shooting arm pain, no arm numbness/tingling, no low back pain Integumentary: no rash, no pruritis, no redness, no sores, no wounds Neurological: no paralysis, no weakness, no parathesias, no numbness, no tingling, no seizures Psychiatric: no anxiety, no memory loss, no change in sleep habits, no insomnia, no hypersomnia, no change in appetite, no change in libido Endocrine: no cold intolerance, no heat intolerance, no excessive thirst, no polyuria Hematologic/Lymphatic: no easy bruising, no easy bleeding, no lymphadenopathy Allergic/Immunologic: no allergic rhinitis, no anaphylaxis Exam - Constitutional Vitals: Temp Pulse Resp BP Pulse Ox 102 H 14 131/96 96 02/14/21 13:30 02/14/21 13:30 02/14/21 13:30 02/14/21 13:30 General appearance: Present: mild distress - EENT Eyes: Present: PERRL ENT: hearing intact, clear oral mucosa - Neck Neck: Present: supple, normal ROM - Respiratory Respiratory effort: normal Respiratory: bilateral: CTA - Cardiovascular Rhythm: irregularly irregular Heart Sounds: Present: S1 & S2. Absent: rub, click - Extremities Extremities: pulses symmetrical, No edema Peripheral Pulses: within normal limits - Abdominal General gastrointestinal: Present: soft, non-tender, non-distended, normal bowel sounds Female genitourinary: Present: normal - Integumentary Integumentary: Present: clear, warm, dry - Musculoskeletal Musculoskeletal: gait normal, strength equal bilaterally - Psychiatric Psychiatric: appropriate mood/affect, intact judgment & insight - Neurologic Neurologic: CNII-XII intact, moves all extremities HEART Score - HEART Score Troponin: Troponin T < 0.010 ng/mL (0.00-0.029) 02/14/21 12:48 Results - Labs CBC & Chem 7: 02/14/21 12:48 02/14/21 12:48 Labs: Abnormal lab results 02/14/21 02/14/21 02/14/21 Range/Units 12:48 12:48 12:48 [place] % (Auto) 11.8 H (0.0-7.3) % [place] # (Auto) 0.9 H (0.0-0.8) K/mm3 PT 19.6 H (12.2-14.9) Sec. INR 1.59 H (0.87-1.13) Carbon Dioxide 21 L (22-30) mmol/L BUN 32 H (7-17) mg/dL Creatinine 1.4 H (0.6-1.2) mg/dL Glucose 113 H (65-100) mg/dL NT-Pro-B Natriuret Pep (0-900) pg/mL 02/14/21 Range/Units 12:48 [place] % (Auto) (0.0-7.3) % [place] # (Auto) (0.0-0.8) K/mm3 PT (12.2-14.9) Sec. INR (0.87-1.13) Carbon Dioxide (22-30) mmol/L BUN (7-17) mg/dL Creatinine (0.6-1.2) mg/dL Glucose (65-100) mg/dL NT-Pro-B Natriuret Pep 21830 H (0-900) pg/mL Assessment and Plan - Patient Problems (1) Atrial fibrillation with RVR Current Visit: Yes Status: Acute Plan to address problem: Cardiology team consulted in ED, rate control with Cardizem, telemetry monitoring, supportive care, continue therapeutic anticoagulation, PARMINDER ordered as per cardiology request, continue medical management. (2) Pulmonary hypertension Current Visit: Yes Status: Acute Plan to address problem: Supportive care, continue medical management. Submental oxygen, pulse oximetry. (3) CHF (congestive heart failure) Current Visit: No Status: Acute Qualifiers: Heart failure type: systolic Heart failure chronicity: acute on chronic Qualified Code(s): I50.23 - Acute on chronic systolic (congestive) heart failure Plan to address problem: Strict I/O, monitor urine output every shift, blood pressure control, daily weight, afterload reduction, cardiology team consulted in ED. (4) DVT prophylaxis Current Visit: Yes Status: Acute Plan to address problem: SCDs bilateral lower extremities while in bed, continue therapeutic anticoagulation (5) Advance care planning Current Visit: Yes Status: Acute Plan to address problem: disease education conducted, care plan discussed, diagnosis discussed, prognosis discussed, patient knowledges understanding and agreement care plan, patient is full code. +30 minutes.
[2021-02-14] MEDS ORDERED: METOCLOPRAMIDE 10 MG TAB PO PRN (15:08)
[2021-02-14] MEDS ORDERED: dilTIAZem 30 MG TAB PO ONE (15:15)
[2021-02-14] MEDS ORDERED: ALBUTEROL 2.5 MG/3 ML NEBU IH PRN (15:22)
[2021-02-14] MEDS ORDERED: oxyCODONE /ACETAMINOPHEN 5-325MG TAB PO PRN (15:22)
[2021-02-14] MEDS ORDERED: ACETAMINOPHEN 325 MG TAB PO PRN (15:22)
[2021-02-14] MEDS ORDERED: HYDROmorphone 1 MG/1 ML INJ IV PRN (15:22)
[2021-02-14] MEDS ORDERED: ONDANSETRON 4 MG/2 ML INJ IV PRN (15:22)
[2021-02-14] MEDS ORDERED: NON-FORMULARY EACH (Apixaban 5 MG Tablet) PO SCH (22:00)
[2021-02-14] MEDS ORDERED: DILTIAZEM HCL 120 MG PO SCH (22:00)
[2021-02-14] MEDS: FUROSEMIDE 20 MG/2 ML INJ IV SCH (22:32)
[2021-02-14] MEDS: carvediloL 25 MG TAB PO SCH (22:33)
[2021-02-14] MEDS: APIXABAN 5 MG TAB PO SCH (22:34)
[2021-02-14] MEDS: ISOSORB DINIT/HYDRALAZINE 20-37.5MG TAB PO SCH (22:34)
[2021-02-14] MEDS: dilTIAZem CD 120 MG CAP PO SCH (22:35)
[2021-02-15] MEDS: FUROSEMIDE 20 MG/2 ML INJ IV SCH (05:32)
[2021-02-15 05:42] LABS: Calcium 8.7 mg/dL (8.4-10.2)
[2021-02-15 06:13] LABS: Bacteria,Urine 1+ /HPF (Negative); Bilirubin,Urine NEG (Negative); Blood,Urine SM (Negative); Calcium Oxalate Crystals,Urine 2+; Color,Urine Yellow (Yellow); Mucus,Urine FEW /HPF; Protein,Urine <15 mg/dL mg/dL (Negative); Urobilinogen,Urine < 2.0 mg/dL (<2.0)
--- NOTE | 2021-02-15 11:50 | Electrocardiograph Report ---
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
[2021-02-15] MEDS: dilTIAZem CD 120 MG CAP PO SCH (12:55)
[2021-02-15] MEDS: carvediloL 25 MG TAB PO SCH (12:55)
--- NOTE | 2021-02-15 12:56 | Consultation ---
History of Present Illness Consult date: 02/15/21 Consult reason: atrial fibrillation, congestive heart failure History of present illness: Patient is a 70-year-old woman with a history of dilated nonischemic cardiomyopathy, severe left ventricular systolic failure, with primary ICD implant in situ. She is on guideline directed medical therapy for chronic left ventricular failure, rate control management strategy of atrial fibrillation. She is on Eliquis for oral anticoagulation. She was in this hospital less than 2 weeks ago with abdominal pain, marked elevation in the liver enzymes. She was evaluated and managed by gastroenterology in consultation. Her cardiac status at that time was marked by elevation of the ventricular rate of her atrial fibrillation in response to her acute abdominal pathology. Patient was subsequently discharged on a stable regimen with adequate rate control on discharge. She is readmitted at this time with acute onset palpitations and shortness of breath, but reports no abdominal pain at the current time. In the emergency room, EKG was atrial fibrillation with ventricular rate in the 130s. She was placed on intravenous Cardizem, admitted for further cardiac evaluation. Her chest x-ray shows marked cardiomegaly consistent with her chronic cardiomyopathy, with possible mild interstitial edema. Past History Past Medical History: atrial fib, arrhythmia, GERD, heart failure, hypertension, other (ICD implant) Past Surgical History: mastectomy, Other (Thyroidectomy, rhinoplasty) Social history: single. denies: alcohol abuse, prescription drug abuse Family history: diabetes, hypertension Medications and Allergies Allergies Allergy/AdvReac Type Severity Reaction Status Date / Time ondansetron [From Zofran] Allergy Rash Verified 04/28/20 04:09 [id number] Reductase AdvReac Nausea Verified 06/11/20 12:33 Inhibitor Home Medications Medication Instructions Recorded Confirmed Last Taken Type Furosemide [Lasix TAB] 40 mg PO QDAY #30 04/29/20 06/10/20 05/09/20 21:00 Rx carvediloL [Coreg] 25 mg PO BID #60 04/29/20 06/10/20 05/10/20 09:00 Rx Apixaban [Eliquis] 5 mg PO Q12HR #60 tablet 05/12/20 06/10/20 Unknown Rx Metoclopramide [Reglan TAB] 10 mg PO TID PRN #30 tab 06/11/20 Unknown Rx Diltiazem HCl [Diltiazem 12Hr ER] 120 mg PO BID #60 cap.er.12h 02/11/21 Unknown Rx Isosorb Dinit/Hydralazine [Bidil 1 each PO BID #60 tablet 02/11/21 Unknown Rx 20/37.5MG] Active Meds: Active Medications Acetaminophen (Acetaminophen 325 Mg Tab) 650 mg PO Q4H PRN PRN Reason: Pain MILD(1-3)/Fever >100.5/NAVAS Albuterol (Albuterol 2.5 Mg/3 Ml Nebu) 2.5 mg IH Q4HRT PRN PRN Reason: Shortness Of Breath Apixaban (Apixaban 5 Mg Tab) 5 mg PO Q12HR [facility] Last Admin: 02/14/21 22:34 Dose: 5 mg Documented by: Digoxin (Digoxin 0.5 Mg/2 Ml Inj) 0.25 mg IV Q6HR [facility] Stop: 02/15/21 18:01 Furosemide (Furosemide 40 Mg/4 Ml Inj) 40 mg IV QDAY [facility] Hydromorphone HCl (Hydromorphone 1 Mg/1 Ml Inj) 0.5 mg IV Q12H PRN PRN Reason: Pain , Severe (7-10) Isosorbide Dinitrate/Hydralazine (Isosorb Dinit/Hydralazine 20-37.5mg Tab) 1 each PO BID [facility] Last Admin: 02/14/21 22:34 Dose: 1 each Documented by: Metoclopramide HCl (Metoclopramide 10 Mg Tab) 5 mg PO TID PRN PRN Reason: Nausea And Vomiting Metolazone (Metolazone 2.5 Mg Tab) 2.5 mg PO QDAY [facility] Metoprolol Tartrate (Metoprolol Tartrate 50 Mg Tab) 50 mg PO Q8H [facility] Oxycodone/Acetaminophen (Oxycodone /Acetaminophen 5-325mg Tab) 1 tab PO Q12H PRN PRN Reason: Pain, Moderate (4-6) Sodium Chloride (Sodium Chloride 0.9% 10 Ml Flush Syringe) 10 ml IV BID [facility] Last Admin: 02/14/21 22:36 Dose: 10 ml Documented by: Sodium Chloride (Sodium Chloride 0.9% 10 Ml Flush Syringe) 10 ml IV PRN PRN PRN Reason: LINE FLUSH Spironolactone (Spironolactone 25 Mg Tab) 25 mg PO QDAY [facility] Review of Systems Cardiovascular: palpitations, rapid/irregular heart beat, lightheadedness, shortness of breath, no chest pain, no orthopnea, no edema, no syncope Physical Examination Vital Signs Pulse Resp 128 H 17 02/14/21 12:40 02/14/21 12:40 General appearance: no acute distress HEENT: Positive: PERRL Neck: Positive: neck supple Cardiac: Positive: irregularly irregular Lungs: Positive: Decreased Breath Sounds Neuro: Positive: Grossly Intact Abdomen: Positive: Soft Female genitourinary: deferred Skin: Positive: Clear Extremities: Absent: edema Results 02/14/21 12:48 02/15/21 05:00 Coagulation 02/14/21 Range/Units 12:48 PT 19.6 H (12.2-14.9) Sec. INR 1.59 H (0.87-1.13) APTT 34.9 (24.2-36.6) Sec. CBC 02/14/21 Range/Units 12:48 WBC 7.5 (4.5-11.0) K/mm3 RBC 4.18 (3.65-5.03) M/mm3 Hgb 12.8 (10.1-14.3) gm/dl Hct 37.9 (30.3-42.9) % Plt Count 209 (140-440) K/mm3 Lymph # (Auto) 1.3 (1.2-5.4) K/mm3 [place] # (Auto) 0.9 H (0.0-0.8) K/mm3 Eos # (Auto) 0.1 (0.0-0.4) K/mm3 Baso # (Auto) 0.1 (0.0-0.1) K/mm3 Comprehensive Metabolic Panel 02/14/21 02/15/21 Range/Units 12:48 05:00 Sodium 139 139 (137-145) mmol/L Potassium 3.8 4.6 D (3.6-5.0) mmol/L Chloride 102.3 103.4 (98-107) mmol/L Carbon Dioxide 21 L 24 (22-30) mmol/L BUN 32 H 28 H (7-17) mg/dL Creatinine 1.4 H 1.5 H (0.6-1.2) mg/dL Glucose 113 H 95 (65-100) mg/dL Calcium 9.1 8.7 (8.4-10.2) mg/dL EKG interpretations - Telemetry EKG Rhythm: Atrial Fibrillation Assessment and Plan - Patient Problems (1) Atrial fibrillation with RVR Current Visit: Yes Status: Acute Plan to address problem: Patient presents with acceleration of ventricular response to chronic atrial fibrillation. We will optimize rate control with metoprolol, digoxin. Due to recent liver injury, we will avoid the use of amiodarone therapy. (2) CHF exacerbation Current Visit: Yes Status: Acute Plan to address problem: Patient has clinical and radiologic evidence of acute on chronic systolic heart failure. We will optimize diuretics with the use of furosemide, metolazone and spironolactone. We will reorder liver enzyme panel, and if her liver profile has normalized we will consider a trial of intravenous milrinone.
--- NOTE | 2021-02-15 15:10 | Progress Note ---
Assessment and Plan -- Atrial fibrillation with RVR Cardiology team consulted in ED, rate control medications, telemetry monitoring, supportive care, continue therapeutic anticoagulation, PARMINDER ordered as per cardiology request, continue medical management. -- Pulmonary hypertension Supportive care, continue medical management. Submental oxygen, pulse oximetry. --Acute systolic CHF (congestive heart failure) Strict I/O, monitor urine output every shift, blood pressure control, daily weight, afterload reduction, cardiology team consulted in ED. --DVT prophylaxis SCDs bilateral lower extremities while in bed, continue therapeutic anticoagulation --Full CODE STATUS Daily clinical course: 02/15/21: cont to optimize rate control with metoprolol, digoxin. Due to recent liver injury, stopped amiodarone therapy. cont diuretics : furosemide, metolazone and spironolactone. f/u liver enzyme panel, and if her liver profile has normalized plan for trial of intravenous milrinone. Subjective Date of service: 02/15/21 Interval history: Patient seen and examined. Medical records and medication list reviewed. No acute event overnight noted by the RN. Patient denies any chest pain but has exertional difficulty breathing. Vitals noted and stable, patient is tolerating diet. Discussed plan of care at bedside with patient. Objective - Exam Narrative Exam: GENERAL: well-developed and well-nourished white female lying on bed appeared to be in no discomfort. HEENT: Normocephalic. Atraumatic. No conjunctival congestion or icterus. Patient has moist mucous membranes. NECK: Supple. Trachea midline. CHEST/LUNGS: Clear to auscultated bilaterally, breathing nonlabored. No wheezes crackles or rhonchi. HEART/CARDIOVASCULAR: Regular in rate and rhythm. S1 and S2 positive. ABDOMEN: Abdomen is soft, nontender. Patient has normal bowel sounds. SKIN: There is no rash. Warm and dry. NEURO: No focal motor deficit. Follows command. MUSCULOSKELETAL: No joint effusion or tenderness. EXTRIMITY: No edema, no cyanosis or clubbing. PSYCH: Cooperative. - Constitutional Vitals: Vital Signs - 12hr 02/15/21 02/15/21 02/15/21 06:28 08:16 10:28 Temperature 97.3 F L Pulse Rate 68 57 L Respiratory 19 Rate Blood Pressure 108/68 O2 Sat by Pulse 98 99 Oximetry 02/15/21 02/15/21 11:00 11:01 Temperature 97.6 F Pulse Rate 104 H 63 Respiratory 19 Rate Blood Pressure 117/82 O2 Sat by Pulse 93 Oximetry - Labs CBC & Chem 7: 02/14/21 12:48 02/17/21 06:18 Labs: Abnormal lab results 02/15/21 Range/Units 05:00 BUN 28 H (7-17) mg/dL Creatinine 1.5 H (0.6-1.2) mg/dL HEART Score - HEART Score Troponin: Troponin T < 0.010 ng/mL (0.00-0.029) 02/14/21 18:13
[2021-02-15] MEDS: METOPROLOL TARTRATE 50 MG TAB PO SCH ×2 (16:32→23:21)
[2021-02-15] MEDS: APIXABAN 5 MG TAB PO SCH ×2 (16:32→21:40)
[2021-02-15] MEDS: metOLazone 2.5 MG TAB PO SCH (16:32)
[2021-02-15] MEDS: ISOSORB DINIT/HYDRALAZINE 20-37.5MG TAB PO SCH ×2 (16:32→21:40)
[2021-02-15] MEDS: DIGOXIN 0.5 MG/2 ML INJ IV SCH ×2 (16:32→21:41)
[2021-02-15] MEDS: SPIRONOLACTONE 25 MG TAB PO SCH (16:32)
[2021-02-15] MEDS: FUROSEMIDE 40 MG/4 ML INJ IV SCH (16:32)
[2021-02-15 23:35] LABS: Albumin 4.1 g/dL (3.9-5); Bilirubin,Direct 0.3 mg/dL (0-0.2)
[2021-02-16] MEDS: metOLazone 2.5 MG TAB PO SCH (10:42)
[2021-02-16] MEDS: METOPROLOL TARTRATE 50 MG TAB PO SCH ×3 (10:43→23:03)
[2021-02-16] MEDS: SPIRONOLACTONE 25 MG TAB PO SCH (10:43)
[2021-02-16] MEDS: ISOSORB DINIT/HYDRALAZINE 20-37.5MG TAB PO SCH ×2 (10:43→21:04)
[2021-02-16] MEDS: APIXABAN 5 MG TAB PO SCH ×2 (10:44→21:04)
[2021-02-16] MEDS: FUROSEMIDE 40 MG/4 ML INJ IV SCH (10:46)
--- NOTE | 2021-02-16 11:15 | Progress Note ---
Assessment and Plan Chronic atrial fibrillation on rate control strategy with digoxin and metoprolol. on Eliquis as an outpatient for oral anticoagulation. CHF exacerbation Dilated NICMP LVEF 25-30% by echo 04/2020 Presence of AICD (Medtronic) Abnormal liver enzymes - trending downward Acute on chronic renal failure creatinine 1.4 on presentation Continue GDMT for acute on chronic systolic heart failure. Continue rate controlling agents and oral anticoagulation for chronic atrial fibrillation. Otherwise, stable cardiac bryant for discharge. Subjective Date of service: 02/16/21 Interval history: Patient is resting in bed comfortably. Denies unusual shortness of breath and denies palpitations. Currently, she is atrial fibrillation with a well controlled ventricular rate on telemetry. Objective Vital Signs Temp Pulse Resp BP Pulse Ox 02/16/21 08:57 99 02/16/21 08:38 97 02/16/21 03:54 97.5 F L 64 14 132/82 98 02/15/21 23:41 97.9 F 87 16 134/85 96 02/15/21 23:21 92 H 02/15/21 22:00 90 99 02/15/21 21:05 97 02/15/21 20:24 98.2 F 96 H 16 121/71 97 02/15/21 16:35 98/63 02/15/21 16:33 98.0 F 109 H 19 93/55 97 - Physical Examination General: No Apparent Distress HEENT: Positive: PERRL Neck: Positive: neck supple Cardiac: Positive: irregularly irregular Lungs: Positive: Decreased Breath Sounds Neuro: Positive: Grossly Intact Abdomen: Positive: Soft Extremities: Absent: edema - Labs and Meds Cardiac Enzymes 02/15/21 Range/Units 22:17 AST 52 H (5-40) units/L Comprehensive Metabolic Panel 02/15/21 Range/Units 22:17 Direct Bilirubin 0.3 H (0-0.2) mg/dL Indirect Bilirubin 0.4 mg/dL AST 52 H (5-40) units/L ALT 287 H (7-56) units/L Alkaline Phosphatase 158 H (35-129) units/L Total Protein 7.0 D (6.3-8.2) g/dL Albumin 4.1 (3.9-5) g/dL
[2021-02-16 16:12] LABS: Calcium 9.5 mg/dL (8.4-10.2)
--- NOTE | 2021-02-16 16:58 | Progress Note ---
Assessment and Plan -- JASON on possible CKD Cr 1.8 today, stop lasix, follow clinically, repeat BMP tomorrow -- Atrial fibrillation with RVR Cardiology team consulted in ED, rate control medications, telemetry monitoring, supportive care, continue therapeutic anticoagulation, PARMINDER ordered as per cardiology request, continue medical management. -- Pulmonary hypertension Supportive care, continue medical management. Submental oxygen, pulse oximetry. --Acute on chronic systolic CHF (congestive heart failure) LVEF 25-30% by echo 04/2020, status post AICD in situ Strict I/O, monitor urine output every shift, blood pressure control, daily weight, afterload reduction, cardiology team consulted in ED. --Abnormal liver enzymes - trending downward --DVT prophylaxis SCDs bilateral lower extremities while in bed, continue therapeutic anticoagulation --Full CODE STATUS Daily clinical course: 02/15/21: cont to optimize rate control with metoprolol, digoxin. Due to recent liver injury, stopped amiodarone therapy. cont diuretics : furosemide, metolazone and spironolactone. f/u liver enzyme panel, and if her liver profile has normalized plan for trial of intravenous milrinone. 02/16/21: Cr 1.8 today, stop lasix and Aldactone, follow clinically, repeat BMP tomorrow. Continue supportive care medical management Subjective Date of service: 02/16/21 Interval history: Patient seen and examined. Medical records and medication list reviewed. No acute event overnight noted by the RN. Patient denies any chest pain , improved difficulty breathing. No palpitation Vitals noted and stable, patient is tolerating diet. Creatinine trended up Discussed plan of care at bedside with patient. Objective - Exam Narrative Exam: GENERAL: well-developed and well-nourished white female lying on bed appeared to be in no discomfort. HEENT: Normocephalic. Atraumatic. No conjunctival congestion or icterus. Patient has moist mucous membranes. NECK: Supple. Trachea midline. CHEST/LUNGS: Clear to auscultated bilaterally, breathing nonlabored. No wheezes crackles or rhonchi. HEART/CARDIOVASCULAR: Regular in rate and rhythm. S1 and S2 positive. ABDOMEN: Abdomen is soft, nontender. Patient has normal bowel sounds. SKIN: There is no rash. Warm and dry. NEURO: No focal motor deficit. Follows command. MUSCULOSKELETAL: No joint effusion or tenderness. EXTRIMITY: No edema, no cyanosis or clubbing. PSYCH: Cooperative. - Constitutional Vitals: Vital Signs - 12hr 02/16/21 02/16/21 02/16/21 08:38 08:57 10:18 Temperature 97.8 F Pulse Rate 83 Respiratory 18 Rate Blood Pressure 117/61 O2 Sat by Pulse 97 99 93 Oximetry - Labs CBC & Chem 7: 02/14/21 12:48 02/17/21 06:18 Labs: Abnormal lab results 02/15/21 02/16/21 Range/Units 22:17 15:09 BUN 33 H (7-17) mg/dL Creatinine 1.8 H (0.6-1.2) mg/dL Direct Bilirubin 0.3 H (0-0.2) mg/dL AST 52 H (5-40) units/L ALT 287 H (7-56) units/L Alkaline Phosphatase 158 H (35-129) units/L HEART Score - HEART Score Troponin: Troponin T < 0.010 ng/mL (0.00-0.029) 02/14/21 18:13
[2021-02-16] MEDS ORDERED: DIGOXIN 0.125 MG TAB PO SCH (17:00)
[2021-02-17 06:50] LABS: Calcium 9.2 mg/dL (8.4-10.2)
[2021-02-17 08:35] VITALS: BP 123/83
[2021-02-17] MEDS: METOPROLOL TARTRATE 50 MG TAB PO SCH (08:59)
[2021-02-17] MEDS: metOLazone 2.5 MG TAB PO SCH (09:00)
[2021-02-17] MEDS: ISOSORB DINIT/HYDRALAZINE 20-37.5MG TAB PO SCH ×2 (09:00→09:06)
[2021-02-17] MEDS: APIXABAN 5 MG TAB PO SCH (09:01)
--- NOTE | 2021-02-17 10:23 | Progress Note ---
Assessment and Plan Chronic atrial fibrillation on rate control strategy with digoxin and metoprolol. on Eliquis as an outpatient for oral anticoagulation. CHF exacerbation Dilated NICMP LVEF 25-30% by echo 04/2020 Presence of AICD ([employer]) Abnormal liver enzymes - trending downward Acute on chronic renal failure creatinine 1.4 on presentation Continue GDMT for acute on chronic systolic heart failure. Continue rate controlling agents and oral anticoagulation for chronic atrial fibrillation. Subjective Date of service: 02/17/21 Interval history: Patient is resting in bed comfortably. No cardiac complaints. Discharge held yesterday due to creatinine of 1.8. Intravenous Lasix held, creatinine today is 1.7. Currently, she is atrial fibrillation with a well controlled ventricular rate on telemetry. Objective Vital Signs Temp Pulse Resp BP Pulse Ox 02/17/21 08:59 102 H 123/83 02/17/21 08:40 102 H 100 02/17/21 08:31 97.7 F 102 H 18 123/83 95 02/17/21 04:12 97.4 F L 71 16 122/82 96 02/16/21 23:24 97.7 F 81 14 124/80 95 02/16/21 22:00 99 02/16/21 21:01 96 02/16/21 19:28 98.1 F 91 H 16 123/71 95 02/16/21 12:58 98.0 F 77 18 114/65 95 - Physical Examination General: No Apparent Distress HEENT: Positive: PERRL Neck: Positive: neck supple Cardiac: Positive: irregularly irregular Lungs: Positive: Decreased Breath Sounds Neuro: Positive: Grossly Intact Extremities: Absent: edema - Labs and Meds Comprehensive Metabolic Panel 02/16/21 02/17/21 Range/Units 15:09 06:18 Sodium 141 139 (137-145) mmol/L Potassium 4.1 4.0 (3.6-5.0) mmol/L Chloride 98.5 98.6 (98-107) mmol/L Carbon Dioxide 27 25 (22-30) mmol/L BUN 33 H 35 H (7-17) mg/dL Creatinine 1.8 H 1.7 H (0.6-1.2) mg/dL Glucose 87 81 (65-100) mg/dL Calcium 9.5 9.2 (8.4-10.2) mg/dL
--- NOTE | 2021-02-17 16:20 | Discharge Summary ---
Providers - Providers Date of Admission: 02/15/21 14:54 Date of discharge: 02/17/21 Attending physician: GEOVANY CONTRERAS 02/14/21 14:46 Consult to Physician [CONS] Stat Comment: Consulting Provider: SIL DELANEY Physician Instructions: Reason For Exam: Atrial fibrillation with RVR. Primary care physician: [employer]CE [employer] Hospitalization Condition: Stable Hospital course: Patient is a 70-year-old woman with a history of dilated nonischemic cardiomyopathy, severe left ventricular systolic failure, with primary ICD implant in situ, atrial fibrillation on eliquis admitted at this time with acute onset palpitations and shortness of breath. In the emergency room, EKG was atrial fibrillation with ventricular rate in the 130s. She was placed on intravenous Cardizem, admitted for further cardiac evaluation. Her chest x-ray shows marked cardiomegaly consistent with her chronic cardiomyopathy, with possible mild interstitial edema. Cardiology was consulted, she was weaned off from the Cardizem drip and placed on metoprolol and digoxin. Also placed on diuretics with IV Lasix metolazone and spironolactone. On admission patient creatinine was 1.4 which increased up to 1.8. Her Lasix and spironolactone was discontinued for elevated creatinine. Her symptom improved with medical management. Patient was then discharged home in stable condition with outpatient follow-up. Disposition: DC-30 STILL A PATIENT Final Discharge Diagnosis (Prints w/discharge instructions): -- JASON on possible CKD, likely from diuresis. -- Atrial fibrillation with RVR. -- Pulmonary hypertension. --Acute on chronic systolic CHF (congestive heart failure). --Abnormal liver enzymes - trending downward Time spent for discharge: 34 minutes Core Measure Documentation - Palliative Care Palliative Care/ Comfort Measures: Not Applicable - Core Measures Any of the following diagnoses?: none Exam - Physical Exam Narrative exam: GENERAL: well-developed and well-nourished white female lying on bed appeared to be in no discomfort. HEENT: Normocephalic. Atraumatic. No conjunctival congestion or icterus. Patient has moist mucous membranes. NECK: Supple. Trachea midline. CHEST/LUNGS: Clear to auscultated bilaterally, breathing nonlabored. No wheezes crackles or rhonchi. HEART/CARDIOVASCULAR: Regular in rate and rhythm. S1 and S2 positive. ABDOMEN: Abdomen is soft, nontender. Patient has normal bowel sounds. SKIN: There is no rash. Warm and dry. NEURO: No focal motor deficit. Follows command. MUSCULOSKELETAL: No joint effusion or tenderness. EXTRIMITY: No edema, no cyanosis or clubbing. PSYCH: Cooperative. - Constitutional Vitals: Temp Pulse Resp BP Pulse Ox 97.7 F 102 H 18 123/83 96 02/17/21 08:31 02/17/21 08:59 02/17/21 08:31 02/17/21 08:59 02/17/21 10:00 Plan Activity: advance as tolerated Weight Bearing Status: Weight Bear as Tolerated Diet: low fat, low salt Special Instructions: restrict fluid intake to (1.5 L daily), record daily weights Additional Instructions: Repeat BMP in one week Follow up with: PRIMARY CAREMD [Primary Care Provider] - 3-5 Days SIL DELANEY MD [Staff Physician] - 7 Days Prescriptions: Metoprolol [Lopressor TAB] 50 mg PO Q8H #60 tablet metOLazone [Zaroxolyn] 2.5 mg PO QDAY #30 tablet
== END 2021-02-17 18:01 | disposition home health service (06) | DRG 291 ==
LOC: ED 12:27 → 4A 15:22 → OBSVTOIN 02-15 14:54
PROVIDERS: ADMIT Internal Medicine; ATTEND Internal Medicine
DX: I13.0 Hypertensive heart and chronic kidney disease with heart failure and stage 1 through stage 4 chronic kidney disease, or unspecified chronic kidney disease (principal); I50.23 Acute on chronic systolic (congestive) heart failure; I48.20 Chronic atrial fibrillation, unspecified; N17.9 Acute kidney failure, unspecified; I27.20 Pulmonary hypertension, unspecified; Z79.01 Long term (current) use of anticoagulants; Z88.8 Allergy status to other drugs, medicaments and biological substances; Z86.73 Personal history of transient ischemic attack (TIA), and cerebral infarction without residual deficits; K21.9 Gastro-esophageal reflux disease without esophagitis; Z82.49 Family history of ischemic heart disease and other diseases of the circulatory system; Z83.3 Family history of diabetes mellitus; I42.0 Dilated cardiomyopathy; N18.9 Chronic kidney disease, unspecified; R79.89 Other specified abnormal findings of blood chemistry; Z95.810 Presence of automatic (implantable) cardiac defibrillator
CPT/HCPCS: 36415; 71045; 80048; 80076; 81001; 82962; 83880; 84484; 85025; 85610; 85730; 93005; 96374; 96375; G0378; J1160; J1940